=== PATIENT | female | born 1970 | race Caucasian/White ===

== ENCOUNTER 2017-01-26 00:43 | Emergency (ER) | payer BC, OTHER ==
[2017-01-26 00:53] VITALS: TEMP 97.6
--- NOTE | 2017-01-26 01:12 | ED ---
General Adult HPI - General Chief complaint: Extremity Injury, Lower Stated complaint: Lt leg pain Time Seen by Provider: 01/26/17 01:03 Source: patient, RN notes reviewed Mode of arrival: ambulatory Limitations: no limitations - History of Present Illness Initial comments: Patient is a 47-year-old female presents to the emergency room for evaluation of left calf pain. Patient states the pain began today. Patient states she has a history of multiple PE's about 3 years ago. Patient states she is on Xarelto for about a year. Patient states that she does sit a lot during the day. Patient denies any recent long distant traveling in a car or plane. Patient states she's having pain in her left calf. Patient states this worried her and thought it should be further evaluated. Patient denies any recent trauma her injury to her left leg. Patient denies numbness or tingling in her toes. Patient denies chest pain or shortness of breath. Patient denies headache or dizziness. Patient denies fevers or chills. - Related Data Allergies Allergy/AdvReac Type Severity Reaction Status Date / Time codeine Allergy Confusion Verified 01/26/17 00:54 levofloxacin [From Levaquin] Allergy Confusion Verified 01/26/17 00:54 Penicillins Allergy Confusion Verified 01/26/17 00:54 Sulfa (Sulfonamide Allergy Confusion Verified 01/26/17 00:54 Antibiotics) Review of Systems ROS Statement: Those systems with pertinent positive or pertinent negative responses have been documented in the HPI. ROS Other: All systems not noted in ROS Statement are negative. Past Medical History Past Medical History: Deep Vein Thrombosis (DVT), Pulmonary Embolus (PE) History of Any Multi-Drug Resistant Organisms: None Reported Past Surgical History: No Surgical Hx Reported Past Psychological History: Depression Smoking Status: Current every day smoker Past Alcohol Use History: Occasional Past Drug Use History: None Reported General Exam - General Exam Comments Initial Comments: Sitting in exam room, no acute distress. Limitations: no limitations General appearance: alert, in no apparent distress Head exam: Present: atraumatic, normocephalic, normal inspection Eye exam: Present: normal appearance ENT exam: Present: normal exam Neck exam: Present: normal inspection Respiratory exam: Present: normal lung sounds bilaterally. Absent: respiratory distress Cardiovascular Exam: Present: regular rate, normal rhythm, normal heart sounds Extremities exam: Present: normal inspection Left Lower Leg exam: Present: normal inspection, full ROM, tenderness (Palpating over the proximal posterior lower leg). Absent: swelling Ankle exam: Present: normal inspection, full ROM. Absent: tenderness Foot/Toe exam: Present: normal inspection, full ROM. Absent: tenderness Neurovascular tendon exam: Present: no vascular compromise. Absent: pulse deficit (2+ dorsal pedal and posterior tibial pulses), abnormal cap refill ( Capillary refill less than 2 seconds) Gait: observed and normal Back exam: Present: normal inspection Neurological exam: Present: alert, oriented X3, CN II-XII intact, normal gait Psychiatric exam: Present: normal affect, normal mood Skin exam: Present: warm, dry, intact, normal color. Absent: rash Course Vital Signs 01/26/17 01/26/17 00:51 02:35 Temperature 97.6 F Pulse Rate 108 H 98 Respiratory 20 16 Rate Blood Pressure 194/111 156/95 O2 Sat by Pulse 100 98 Oximetry Medical Decision Making - Medical Decision Making Patient is a 47-year-old female presents emergency room for evaluation of left lower leg pain. Venous Doppler ultrasound shows no signs of DVTs. Advised patient to follow-up with primary care provider in 24-48 hours for reevaluation. Patient states she understands everything that was discussed with her. Return parameters discussed. Case discussed with Dr. Hyunh. - Radiology Data Radiology results: report reviewed, image reviewed Disposition Clinical Impression: Left leg pain Disposition: HOME SELF-CARE Condition: Good Instructions: Leg Pain (ED) Additional Instructions: Take Tylenol or Motrin as needed for pain. Please follow up with primary care provider in 1-2 days for reevaluation. If any new symptom arises or symptoms worsen, return to ER as soon as possible. Referrals: Damian Flores MD [Primary Care Provider] - 1-2 days Time of Disposition: 02:29
--- NOTE | 2017-01-26 02:08 | US ---
EXAM: US Duplex Left Lower Extremity Veins CLINICAL HISTORY: Reason: Left leg pain. History of DVT 3-4 years ago reportedly. TECHNIQUE: Real-time ultrasound scan of the veins of the left lower extremity with color Doppler flow, spectral waveform analysis and compression. COMPARISON: None available FINDINGS: Normal compressibility is demonstrated from the common femoral vein to the proximal left calf veins. There is normal response to augmentation. Normal spontaneous phasic flow is noted. IMPRESSION: No evidence of deep venous thrombosis in the left lower extremity.
[2017-01-26 02:37] VITALS: BP 156/95; PULSE 98; RESP 16
== END 2017-01-26 02:43 | disposition home or self-care (01) ==
LOC: EC 00:43
DX: M79.662 Pain in left lower leg (principal); F17.200 Nicotine dependence, unspecified, uncomplicated; Z88.0 Allergy status to penicillin; Z88.2 Allergy status to sulfonamides; Z88.1 Allergy status to other antibiotic agents; Z88.5 Allergy status to narcotic agent
CPT/HCPCS: 99283

== ENCOUNTER → 2017-07-05 | Outpatient (CLI) | payer OTHER ==
--- NOTE | 2017-07-05 21:28 | MR ---
EXAMINATION TYPE: MR cervical spine wo con DATE OF EXAM: 07/05/2017 COMPARISON: NONE HISTORY: Neck pain, headaches, dizziness TECHNIQUE: Multiplanar, multisequence images of the cervical spine were acquired. C2-C3: No evidence for degenerative disc disease. No disc bulge/herniation or protrusion. No Canal stenosis. Foramina are patent bilaterally. C3-C4: No evidence for degenerative disc disease. No disc bulge/herniation or protrusion. No Canal stenosis. Foramina are patent bilaterally. C4-C5: No evidence for degenerative disc disease. No disc bulge/herniation or protrusion. No Canal stenosis. Foramina are patent bilaterally. C5-C6: Circumferential extension of endplate disc complex causes mild anterior mass effect on the the stiven sac. There is mild right-sided foraminal encroachment greater than left. No significant central s tenosis. C6-C7: Lateral extension endplate disc complex encroaches cause for foraminal encroachment. Mild ante rior mass effect on the thecal sac, no significant central stenosis. C7-T1: No evidence for degenerative disc disease. No disc bulge/herniation or protrusion. No Canal stenosis. Foramina are patent bilaterally. Cervical segments are intact. There is normal alignment. Cervical spinal cord is of normal signal. Craniovertebral junction relationships are within normal limits. Cervical vertebral bodies show pre served height. Bone marrow signal is maintained. IMPRESSION: Mild degenerative disc disease as described.
== END | disposition home or self-care (01) ==
LOC: RADMRIMAIN 19:41
PROVIDERS: ATTEND Internal Medicine
DX: M50.30 Other cervical disc degeneration, unspecified cervical region (principal); M54.5 Low back pain
CPT/HCPCS: 72141

== ENCOUNTER 2017-07-12 07:36 | Day surgery (SDC) | payer OTHER ==
[2017-07-11 12:24] VITALS: BMI 42.3
[~2017-07-12 07:36] MED LIST: LACTATED RINGERS 1,000 ML IV SCH
[2017-07-12 07:53] VITALS: RESP 20; TEMP 96.8
[2017-07-12] MEDS ORDERED: fentaNYL (PF) 50 MCG/ML 2 ML AMP ONE (08:27)
[2017-07-12] MEDS ORDERED: MIDAZOLAM 2 MG/2 ML VIAL ONE (08:27)
[2017-07-12] MEDS ORDERED: LIDOCAINE 1% INJ 10MG/ML (20 ML MDV) ONE (08:27)
[2017-07-12] MEDS ORDERED: PROPOFOL 10 MG/ML 20 ML VIAL IV ONE (08:27)
--- NOTE | 2017-07-12 09:11 | P.PCN ---
Date of Procedure: 07/12/17 Procedure(s) Performed: Procedure: Total colonoscopy. Preoperative diagnosis: Iron deficiency anemia. Postoperative diagnosis: Exam within normal limits. Preparation: HalfLytely prep. Sedation: Was provided by anesthesia. Brief clinical history: The patient is a 47-year-old female who is referred for this evaluation because of iron deficiency anemia. She has no overt bleeding. She has tendency for constipation. Colonoscopy performed in 2005 for constipation did not reveal any polyps. No family history of colon cancer. The patient has reflux symptoms and takes omeprazole. Her last upper endoscopy was around 2005. Procedure: With the patient on her left lateral decubitus position and after informed consent and adequate sedation, the perianal area was inspected and it did not show any fissures or fistulas. There were no masses felt on digital rectal examination. The Olympus CFQ 160L video colonoscope was then inserted in the rectum in the usual fashion and advanced to the cecum. The preparation was good. The mucosa appeared healthy. No polyps or tumors were seen or any obvious diverticular disease or other potential sources of bleeding. The patient tolerated the procedure well. Plan: The patient was reassured. She will follow-up with you as planned. Consideration can be given for further workup of the upper GI tract and small bowel if she continues to have iron deficiency anemia and has occult blood in her stools or other evidence of GI bleeding. Otherwise, it is likely that her anemia is related to her menstrual blood losses. For screening colonoscopy, I recommended repeat exam in 10 years.
[2017-07-12 09:29] VITALS: BP 138/94; PULSE 74
== END 2017-07-12 09:51 | disposition home or self-care (01) ==
LOC: ORWHC2ENDO 07:36
DX: D50.9 Iron deficiency anemia, unspecified (principal); K21.9 Gastro-esophageal reflux disease without esophagitis; Z86.718 Personal history of other venous thrombosis and embolism; I10 Essential (primary) hypertension; Z86.711 Personal history of pulmonary embolism; Z88.1 Allergy status to other antibiotic agents; Z88.0 Allergy status to penicillin; Z88.2 Allergy status to sulfonamides; Z88.8 Allergy status to other drugs, medicaments and biological substances
CPT/HCPCS: 81025; 45378; J2250; J2001; J3010; J2704

== ENCOUNTER → 2019-07-25 | Outpatient (CLI) | payer BC ==
[2019-07-25 07:35] LABS: Basophils # (A) 0.1 k/uL (0-0.2); Basophils % (A) 1 %; Eosinophils # (A) 0.3 k/uL (0-0.7); Eosinophils % (A) 3 %; HGB 11.4 gm/dL (11.4-16.0); Lymphocytes # (A) 3.2 k/uL (1.0-4.8); Lymphocytes % (A) 29 %; MCH 25.5 pg (25.0-35.0); MCHC 31.7 g/dL (31.0-37.0); MCV 80.4 fL (80.0-100.0); Mean Platelet Volume 5.7; Monocytes # (A) 0.9 k/uL (0-1.0); Monocytes % (A) 9 %; Neutrophils # (A) 6.2 k/uL (1.3-7.7); Neutrophils % (A) 57 %; Platelet Count 391 k/uL (150-450); RBC 4.48 m/uL (3.80-5.40); RDW 15.1 % (11.5-15.5); WBC 10.9 k/uL (3.8-10.6)
[2019-07-25 11:27] LABS: African American GFR (CKD) 69.2 (60.0-200.0); Albumin 4.2 g/dL (3.80-4.90); Albumin/Globulin Ratio 1.56 (1.60-3.17); Anion Gap 7.5 mmol/L (4.00-12.00); BUN/Creat Ratio 13.64 Ratio (12.00-20.00); Calcium 9.3 mg/dL (8.7-10.3); Carbon Dioxide 27.5 mmol/L (21.6-31.8); Chol/HDL Ratio 3.93; Globulin 2.7 g/dL (1.6-3.3); Potassium 4.4 mmol/L (3.5-5.5); Total Bilirubin 0.4 mg/dL (0.2-1.2); Total Protein 6.9 g/dL (6.2-8.2)
[2019-07-25 14:06] LABS: Hemoglobin A1C 6.5 % (4.0-6.0)
== END | disposition home or self-care (01) ==
LOC: LABWHC1 07:05
PROVIDERS: ATTEND Internal Medicine
DX: I10 Essential (primary) hypertension (principal); K21.9 Gastro-esophageal reflux disease without esophagitis; R53.83 Other fatigue; R73.09 Other abnormal glucose
CPT/HCPCS: 36415; 80053; 80061; 83036; 84443; 85025

== ENCOUNTER 2019-09-01 09:17 | Observation (INO) | payer BC ==
[2019-09-01] MEDS ORDERED: SODIUM CHLORIDE 0.9% 500 ML 500 ML IV STA (09:32)
[2019-09-01] MEDS ORDERED: ONDANSETRON 4 MG/2 ML VIAL IVP STA (09:32)
[2019-09-01 10:23] LABS: Basophils % (A) 0 %; Eosinophils # (A) 0.3 k/uL (0-0.7); Eosinophils % (A) 2 %; HCT 35.6 % (34.0-46.0); HGB 11.3 gm/dL (11.4-16.0); Hypochromasia Slight; Lymphocytes # (A) 2.3 k/uL (1.0-4.8); Lymphocytes % (A) 17 %; MCH 25.1 pg (25.0-35.0); MCHC 31.8 g/dL (31.0-37.0); MCV 78.8 fL (80.0-100.0); Mean Platelet Volume 6.8; Monocytes # (A) 0.8 k/uL (0-1.0); Monocytes % (A) 6 %; Neutrophils # (A) 9.6 k/uL (1.3-7.7); Neutrophils % (A) 73 %; Platelet Count 443 k/uL (150-450); RBC 4.51 m/uL (3.80-5.40); RDW 14.6 % (11.5-15.5); WBC 13.1 k/uL (3.8-10.6)
--- NOTE | 2019-09-01 10:32 | ED ---
General Adult HPI - General Chief complaint: Abdominal Pain Stated complaint: Abd Pain Time Seen by Provider: 09/01/19 09:32 Source: patient Mode of arrival: ambulatory Limitations: no limitations - History of Present Illness Initial comments: Dictation was produced using [employer] dictation software. please excuse any grammatical, word or spelling errors. Chief Complaint: 49-year-old female presents with abdominal pain. History of Present Illness: 79-year-old female she presents today with abdominal pain. Patient reports that her pain started last night. Rest vital 9 PM. She states that her symptoms improved however came back severely at around 5 AM this morning. She states pain is sharp and localized to her epigastric and periumbilical area. She states that the pain then moved down to her right lower quadrant area. Denies any vaginal discharge. Patient feels nauseated however no vomiting. No diarrhea. Patient denies any fevers. Patient states her pain is much improved since its initial onset. Patient denies any history of abdominal surgeries. The ROS documented in this emergency department record has been reviewed and confirmed by me. Those systems with pertinent positive or negative responses have been documented in the HPI. All other systems are other negative and/or noncontributory. PHYSICAL EXAM: General Impression: Alert and oriented x3, not in acute distress HEENT: Normocephalic atraumatic, extra-ocular movements intact, pupils equal and reactive to light bilaterally, mucous membranes moist. Cardiovascular: Heart regular rate and rhythm, S1&S2 audible, no murmurs, rubs or gallops Chest: Lungs clear to auscultation bilaterally, no rhonchi, no wheeze, no rales Abdomen: Bowel sounds present, abdomen soft, no rebound tenderness, pain at McBurney's point positive, negative Holley sign Musculoskeletal: Pulses present and equal in all extremities, no peripheral edema Motor: no focal deficits noted Neurological: CN II-XII grossly intact, no focal motor or sensory deficits noted Skin: Intact with no visualized rashes Psych: Normal affect and mood ED course: 49-year-old female presents with abdominal pain. Upon arrival shows heart rate of 102, rest of vital signs within acceptable limits. Physical examination shows some mild tenderness in the right lower quadrant. Laboratory evaluation obtained. Leukocytosis of 13.1, metabolic panel is negative. Urinalysis shows 19 red blood cells. Computed tomography scan of the abdomen and pelvis with contrast was obtained showing findings to suggest mild early appendicitis. He is also some nonobstructing right-sided nephrolithiasis. Given patient's symptomatology I believe and radiographic ridging her presentation consistent with early acute appendicitis versus nephrolithiasis. Discussed patient case with Dr. geronimo with plans for operating room at 4 PM. Patient given ceftriaxone and Flagyl. Patient reevaluated at bedside found to be stable medical condition. No signs of sepsis at this time. - Related Data Home Medications Medication Instructions Recorded Confirmed Cyclobenzaprine [Flexeril] 10 mg PO TID PRN 07/11/17 07/12/17 Desvenlafaxine Succinate [Pristiq] 50 mg PO DAILY 07/11/17 07/12/17 Dextroamphetamine/Amphetamine 30 mg PO DAILY PRN 07/11/17 07/12/17 [Adderall] Lisinopril [Zestril] 10 mg PO DAILY 07/11/17 07/12/17 Omeprazole 20 mg PO DAILY 07/11/17 07/12/17 traMADol HCL [Ultram] 50 mg PO Q6HR PRN 07/11/17 07/12/17 Allergies Allergy/AdvReac Type Severity Reaction Status Date / Time codeine AdvReac Confusion Verified 09/01/19 13:26 levofloxacin [From Levaquin] AdvReac Confusion Verified 09/01/19 13:26 Penicillins AdvReac Confusion Verified 09/01/19 13:26 Sulfa (Sulfonamide AdvReac Confusion Verified 09/01/19 13:26 Antibiotics) Review of Systems ROS Statement: Those systems with pertinent positive or pertinent negative responses have been documented in the HPI. ROS Other: All systems not noted in ROS Statement are negative. Past Medical History Past Medical History: Deep Vein Thrombosis (DVT), Pulmonary Embolus (PE) History of Any Multi-Drug Resistant Organisms: None Reported Past Surgical History: No Surgical Hx Reported Past Psychological History: Depression Smoking Status: Never smoker Past Alcohol Use History: Occasional General Exam Limitations: no limitations Course Vital Signs 09/01/19 09/01/19 09:23 11:03 Temperature 98.9 F Pulse Rate 102 H 68 Respiratory 18 18 Rate Blood Pressure 156/84 121/86 O2 Sat by Pulse 98 97 Oximetry Medical Decision Making - Lab Data Result diagrams: 09/01/19 09:27 09/01/19 09:27 Lab Results 09/01/19 09/01/19 09/01/19 Range/Units 09:27 09:27 09:27 WBC 13.1 H (3.8-10.6) k/uL RBC 4.51 (3.80-5.40) m/uL Hgb 11.3 L (11.4-16.0) gm/dL Hct 35.6 (34.0-46.0) % MCV 78.8 L (80.0-100.0) fL MCH 25.1 (25.0-35.0) pg MCHC 31.8 (31.0-37.0) g/dL RDW 14.6 (11.5-15.5) % Plt Count 443 (150-450) k/uL Neutrophils % 73 % Lymphocytes % 17 % Monocytes % 6 % Eosinophils % 2 % Basophils % 0 % Neutrophils # 9.6 H (1.3-7.7) k/uL Lymphocytes # 2.3 (1.0-4.8) k/uL Monocytes # 0.8 (0-1.0) k/uL Eosinophils # 0.3 (0-0.7) k/uL Basophils # 0.0 (0-0.2) k/uL Hypochromasia Slight Sodium 139 (137-145) mmol/L Potassium 3.7 (3.5-5.1) mmol/L Chloride 104 (98-107) mmol/L Carbon Dioxide 26 (22-30) mmol/L Anion Gap 9 mmol/L BUN 17 (7-17) mg/dL Creatinine 1.01 (0.52-1.04) mg/dL Est GFR (CKD-EPI)AfAm 77 (>60 ml/min/1.73 sqM) Est GFR (CKD-EPI)NonAf 67 (>60 ml/min/1.73 sqM) Glucose 107 H (74-99) mg/dL Calcium 9.4 (8.4-10.2) mg/dL Total Bilirubin 0.7 (0.2-1.3) mg/dL AST 19 (14-36) U/L ALT 20 (4-34) U/L Alkaline Phosphatase 67 (38-126) U/L Total Protein 7.5 (6.3-8.2) g/dL Albumin 4.0 (3.5-5.0) g/dL Lipase 141 (23-300) U/L Urine Color Yellow Urine Appearance Clear (Clear) Urine pH 7.0 (5.0-8.0) Ur Specific [place] >1.050 H (1.001-1.035) Urine Protein Trace H (Negative) Urine Glucose (UA) Negative (Negative) Urine Ketones Negative (Negative) Urine Blood Moderate H (Negative) Urine Nitrite Negative (Negative) Urine Bilirubin Negative (Negative) Urine Urobilinogen <2.0 (<2.0) mg/dL Ur Leukocyte Esterase Negative (Negative) Urine RBC 19 H (0-5) /hpf Urine WBC 1 (0-5) /hpf Ur Squamous Epith Cells 3 (0-4) /hpf Disposition Clinical Impression: Acute appendicitis Disposition: ADMITTED IP TO THIS HOSP Condition: Fair Referrals: Damian Flores MD [Primary Care Provider] - 1-2 days Decision Time: 13:31
[2019-09-01 10:35] LABS: Calcium 9.4 mg/dL (8.4-10.2); Potassium 3.7 mmol/L (3.5-5.1); Total Bilirubin 0.7 mg/dL (0.2-1.3); Total Protein 7.5 g/dL (6.3-8.2)
--- NOTE | 2019-09-01 12:49 | CT ---
EXAMINATION TYPE: CT abdomen pelvis w con DATE OF EXAM: 09/01/2019 REFERENCE: NONE HISTORY: rlq pain HISTORY: RLQ pain CT DLP: 2089.7 mGy Automated exposure control for dose reduction was used. TECHNIQUE: Helical acquisition through the abdomen and pelvis was obtained following the oral ingesti on of without Oral Contrast and following intravenous administration of 100 mL of Isovue 300. The abraham a was reformatted in axial, coronal and sagittal projections. FINDINGS: Visualized portions of the lungs are clear. There is no pleural or pericardial fluid. The heart is not enlarged. There is a small, sliding hiatal hernia. Within the abdomen, the liver, spleen and gallbladder are normal. Both adrenal glands are normal. There is a 4 mm nonobstructing calculus in the posterior middle pole calyx of the right kidney. The l eft kidney appears normal. The pancreas is unremarkable. There is no significant retroperitoneal, iliac or inguinal adenopathy. The bladder has a normal appearance. The uterus and ovaries appear normal. There is no significant diverticular change and there is no radiographic evidence of diverticulitis. The appendix is prominent measuring 8 cm. There is minimal inflammatory change adjacent to it. Small bowel loops are of normal caliber. There is no free fluid and no free air. There is some facet arthropathy in the lower lumbar spine. IMPRESSION: 1. FINDINGS CONSISTENT WITH MILD, EARLY APPENDICITIS. 2. NONOBSTRUCTING RIGHT-SIDED NEPHROLITHIASIS. 3. SMALL, SLIDING HIATAL HERNIA. 4. DEGENERATIVE CHANGES WITHIN THE SPINE.
[2019-09-01] MEDS ORDERED: metroNIDAZOLE-NS PMX 500 MG in SALINE 1 100ML.BAG IVPB STA (13:06)
[2019-09-01 13:09] LABS: Appearance,Urine Clear (Clear); Bilirubin,Urine Negative (Negative); Blood,Urine Moderate (Negative); Color,Urine Yellow; Glucose,Urine (UA) Negative (Negative); Ketones,Urine Negative (Negative); Leukocyte Esterase,Urine Negative (Negative); Nitrite,Urine Negative (Negative); Protein,Urine Trace (Negative); RBC,Urine 19 /hpf (0-5); Squamous Epithelial Cell,Urine 3 /hpf (0-4); Urobilinogen,Urine <2.0 mg/dL (<2.0); WBC,Urine 1 /hpf (0-5)
[2019-09-01 13:16] LABS: Specific Gravity,Urine >1.050 (1.001-1.035)
[2019-09-01] MEDS ORDERED: ACETAMINOPHEN TAB 325 MG TAB PO PRN (13:26)
[2019-09-01] MEDS ORDERED: ONDANSETRON 4 MG/2 ML VIAL IVP PRN (13:26)
[2019-09-01] MEDS ORDERED: MORPHINE SULFATE 4 MG/ML SYRINGE IV PRN (13:26)
[2019-09-01] MEDS ORDERED: NALOXONE 0.4 MG/ML 1 ML VIAL IV PRN (13:26)
[2019-09-01] MEDS ORDERED: PROPOFOL 10 MG/ML 20 ML VIAL IV ONE (16:15)
[2019-09-01] MEDS ORDERED: fentaNYL (PF) 50 MCG/ML 2 ML AMP ONE (16:15)
[2019-09-01] MEDS ORDERED: GLYCOPYRROLATE 0.2 MG/ML 2 ML VIAL ONE (16:15)
[2019-09-01] MEDS ORDERED: LIDOCAINE 1% INJ 10MG/ML (20 ML MDV) ONE (16:15)
[2019-09-01] MEDS ORDERED: ENOXAPARIN 40 MG/0.4 ML SYRINGE SQ ONE (16:15)
[2019-09-01] MEDS ORDERED: DEXAMETHASONE SOD PHOS (MDV) 100 MG/10 ML VIAL ONE (16:15)
[2019-09-01] MEDS ORDERED: NEOSTIGMINE 1 MG/ML 10 ML VIAL ONE (16:15)
[2019-09-01] MEDS ORDERED: SUCCINYLCHOLINE CHLORIDE 100 MG/5 ML SYR IV ONE (16:15)
[2019-09-01] MEDS ORDERED: ONDANSETRON 4 MG/2 ML VIAL ONE (16:15)
[2019-09-01] MEDS ORDERED: MIDAZOLAM 2 MG/2 ML VIAL ONE (16:15)
[2019-09-01] MEDS ORDERED: ROCURONIUM BROMIDE 10 MG/ML 10 ML VIAL IV ONE (16:15)
--- NOTE | 2019-09-01 16:15 | P.GSHP ---
History of Present Illness H&P Date: 09/01/19 Chief Complaint: Acute appendicitis 49-year-old female comes in the hospital with complaints of pain that began yesterday evening. Pain was initially more in the upper midabdomen but started to radiate down to the right lower quadrant. Some nausea but no vomiting. No fevers. White blood cell count slightly elevated. Computed tomography scan ordered which revealed mild inflammatory changes and thickening the appendix suspicious for early acute appendicitis. - Review of Systems Comment: The patient denies any acute changes in vision or hearing, no dysphagia or odynophagia, no chest pain or shortness of breath, no dysuria or hematuria, no headache, no runny nose, no rectal bleeding or melena, no unexplained weight loss Past Medical History Past Medical History: Deep Vein Thrombosis (DVT), Pulmonary Embolus (PE) History of Any Multi-Drug Resistant Organisms: None Reported Past Surgical History: No Surgical Hx Reported Past Psychological History: Depression Smoking Status: Never smoker Past Alcohol Use History: Occasional Medications and Allergies Home Medications Medication Instructions Recorded Confirmed Type Dextroamphetamine/Amphetamine 30 mg PO DAILY 07/11/17 09/01/19 History [Adderall] Omeprazole 20 mg PO DAILY 07/11/17 09/01/19 History traMADol HCL [Ultram] 50 mg PO Q6HR PRN 07/11/17 09/01/19 History ALPRAZolam [Xanax] 0.25 mg PO HS PRN 09/01/19 09/01/19 History Escitalopram [Lexapro] 10 mg PO DAILY 09/01/19 09/01/19 History Losartan/Hydrochlorothiazide 1 tab PO DAILY 09/01/19 09/01/19 History [Losartan-Hctz 100-25 mg Tab] SUMAtriptan SUCCINATE [Sumatriptan 100 mg PO DAILY PRN 09/01/19 09/01/19 History Succinate] Allergies Allergy/AdvReac Type Severity Reaction Status Date / Time codeine AdvReac Confusion Verified 09/01/19 13:26 levofloxacin [From Levaquin] AdvReac Confusion Verified 09/01/19 13:26 Penicillins AdvReac Confusion Verified 09/01/19 13:26 Sulfa (Sulfonamide AdvReac Confusion Verified 09/01/19 13:26 Antibiotics) Surgical - Exam Vital Signs Temp Pulse Resp BP Pulse Ox 98.9 F 102 H 18 156/84 98 09/01/19 09:23 09/01/19 09:23 09/01/19 09:23 09/01/19 09:23 09/01/19 09:23 Physical exam: General: Well-developed, well-nourished HEENT: Normocephalic, sclerae nonicteric Abdomen: Right lower quadrant tenderness, nondistended Extremities: No edema Neuro: Alert and oriented Results - Labs 09/01/19 09:27 09/01/19 09:27 Abnormal Lab Results - Last 24 Hours (Table) 09/01/19 09/01/19 09/01/19 Range/Units 09:27 09:27 09:27 WBC 13.1 H (3.8-10.6) k/uL Hgb 11.3 L (11.4-16.0) gm/dL MCV 78.8 L (80.0-100.0) fL Neutrophils # 9.6 H (1.3-7.7) k/uL Glucose 107 H (74-99) mg/dL Ur Specific [place] >1.050 H (1.001-1.035) Urine Protein Trace H (Negative) Urine Blood Moderate H (Negative) Urine RBC 19 H (0-5) /hpf Diabetes panel 09/01/19 Range/Units 09:27 Sodium 139 (137-145) mmol/L Potassium 3.7 (3.5-5.1) mmol/L Chloride 104 (98-107) mmol/L Carbon Dioxide 26 (22-30) mmol/L BUN 17 (7-17) mg/dL Creatinine 1.01 (0.52-1.04) mg/dL Glucose 107 H (74-99) mg/dL Calcium 9.4 (8.4-10.2) mg/dL AST 19 (14-36) U/L ALT 20 (4-34) U/L Alkaline Phosphatase 67 (38-126) U/L Total Protein 7.5 (6.3-8.2) g/dL Albumin 4.0 (3.5-5.0) g/dL Calcium panel 09/01/19 Range/Units 09:27 Calcium 9.4 (8.4-10.2) mg/dL Albumin 4.0 (3.5-5.0) g/dL Pituitary panel 09/01/19 Range/Units 09:27 Sodium 139 (137-145) mmol/L Potassium 3.7 (3.5-5.1) mmol/L Chloride 104 (98-107) mmol/L Carbon Dioxide 26 (22-30) mmol/L BUN 17 (7-17) mg/dL Creatinine 1.01 (0.52-1.04) mg/dL Glucose 107 H (74-99) mg/dL Calcium 9.4 (8.4-10.2) mg/dL Adrenal panel 09/01/19 Range/Units 09:27 Sodium 139 (137-145) mmol/L Potassium 3.7 (3.5-5.1) mmol/L Chloride 104 (98-107) mmol/L Carbon Dioxide 26 (22-30) mmol/L BUN 17 (7-17) mg/dL Creatinine 1.01 (0.52-1.04) mg/dL Glucose 107 H (74-99) mg/dL Calcium 9.4 (8.4-10.2) mg/dL Total Bilirubin 0.7 (0.2-1.3) mg/dL AST 19 (14-36) U/L ALT 20 (4-34) U/L Alkaline Phosphatase 67 (38-126) U/L Total Protein 7.5 (6.3-8.2) g/dL Albumin 4.0 (3.5-5.0) g/dL Assessment and Plan (1) Acute appendicitis Narrative/Plan: Will proceed with laparoscopic, possible open appendectomy at this time. Risks of bleeding, infection, leak, abscess, bladder and bowel injury, conversion to an open procedure, hernia were discussed. She understands wished to proceed Current Visit: Yes Status: Acute Code(s): K35.80 - UNSPECIFIED ACUTE APPENDI CITIS SNOMED Code(s): 21600179
[2019-09-01] MEDS ORDERED: IV FLUID CONTINUATION 500 ML IV ONE ×2 (16:18)
[2019-09-01] MEDS ORDERED: BUPIVACAINE (PF) 0.25% 30 ML VIAL SQ ONE ×2 (16:35→17:06)
[2019-09-01] MEDS ORDERED: HYDROmorphone 1 MG/ML 1 ML SYRINGE IVP PRN (16:57)
[2019-09-01] MEDS ORDERED: traMADol 50 MG TAB PO PRN ×2 (16:59→18:38)
--- NOTE | 2019-09-01 17:01 | P.OP ---
Date of Procedure: 09/01/19 Procedure(s) Performed: PREOPERATIVE DIAGNOSIS: Acute appendicitis POSTOPERATIVE DIAGNOSIS: Same PROCEDURE: Laparoscopic appendectomy SURGEON: Trevon EBL: 5 mL ANESTHESIA: General COMPLICATIONS: None OPERATIVE PROCEDURE: The patient was brought and placed on the operating table in the supine position. The patient was placed under general anesthesia. The abdomen was prepped and draped in the usual sterile fashion. A small vertical infraumbilical incision was made. The fascia was retracted anteriorly with Charlie forceps. The Veress needle was advanced into the peritoneal cavity. The saline drop test was normal. Insufflation took place to 15 mmHg. A 5 mm trocar was then placed. An additional 5 mm suprapubic trocar was placed under direct visualization as well as a 12 mm left lower quadrant trocar under direct visualization. The appendix was inspected. It was acutely inflamed. The mesoappendix was dissected. The base of the appendix was divided using a linear 45 mm intestinal stapler. The mesentery itself was divided using the LigaSure device. The area was then irrigated. No further purulence or bleeding was seen. The appendix was brought out of the peritoneal cavity through the left lower quadrant trocar site with a Endo Catch bag. The fascia at the 12 mm site was closed using a Garcia Ayla 0 Vicryl stitch. The skin at all 3 sites was closed using 4-0 Monocryl sutures. Skin glue was then applied. DISPOSITION: Stable to recovery room
[2019-09-01] MEDS ORDERED: diphenhydrAMINE 50 MG/ML 1 ML VIAL IVP ONE (17:21)
[2019-09-01] MEDS ORDERED: HYDROmorphone 0.5 MG/0.5 ML SYRINGE IVP ONE ×2 (17:28→17:48)
[2019-09-01] MEDS ORDERED: LACTATED RINGERS 1,000 ML IV ONE (17:50)
[2019-09-01] MEDS ORDERED: ALPRAZolam 0.25 MG TAB PO PRN (18:38)
[2019-09-01] MEDS ORDERED: SUMAtriptan SUCCINATE 50 MG TAB PO PRN (18:38)
[2019-09-01] MEDS: DOCUSATE 100 MG CAP PO SCH (20:36)
[2019-09-01] MEDS: FAMOTIDINE 20 MG TAB PO SCH (20:36)
[2019-09-01] MEDS: SODIUM CHLORIDE 0.9% 1,000 ML IV SCH ×2 (20:37→22:00)
[2019-09-01] MEDS: ENOXAPARIN 40 MG/0.4 ML SYRINGE SQ SCH (20:37)
[2019-09-02] MEDS: SODIUM CHLORIDE 0.9% 1,000 ML IV SCH (06:54)
[2019-09-02 07:11] VITALS: BP 112/65; PULSE 69; RESP 18; TEMP 97.6
[2019-09-02] MEDS ORDERED: PANTOPRAZOLE 40 MG TABLET PO SCH (07:30)
[2019-09-02] MEDS: ENOXAPARIN 40 MG/0.4 ML SYRINGE SQ SCH (08:43)
[2019-09-02] MEDS: FAMOTIDINE 20 MG TAB PO SCH (08:44)
[2019-09-02] MEDS: DOCUSATE 100 MG CAP PO SCH (08:44)
[2019-09-02] MEDS ORDERED: NON FORMULARY DRUG (Dextroamphetamine/Amphetamine [Adderall] 30 MG) PO SCH (09:00)
[2019-09-02] MEDS ORDERED: LOSARTAN-HCTZ 50-12.5 MG 1 EACH TAB PO SCH (09:00)
[2019-09-02] MEDS ORDERED: ESCITALOPRAM 10 MG TAB PO SCH (09:00)
--- NOTE | 2019-09-02 12:37 | P.DS ---
Providers Date of admission: 09/01/19 13:26 Expected date of discharge: 09/02/19 Attending physician: Abhijeet Lester Consults: 09/01/19 16:57 Consult Physician Routine Consulting Provider: Damian Flores Consult Reason/Comments: Medical management Do you want consulting provider notified?: Yes Primary care physician: Damian Flores - Discharge Diagnosis(es) (1) Acute appendicitis patient admitted yesterday through the emergency department. Patient diagnosed with acute appendicitis. Doing well at this time. Tolerating diet. Would like to go home today. We'll discharge. Patient already has Ultram at home. Follow-up one week. Current Visit: Yes Status: Acute Patient Condition at Discharge: Fair Plan - Discharge Summary New Discharge Prescriptions: No Action traMADol HCL [Ultram] 50 mg PO Q6HR PRN PRN Reason: Pain Dextroamphetamine/Amphetamine [Adderall] 30 mg PO DAILY Omeprazole 20 mg PO DAILY Losartan/Hydrochlorothiazide [Losartan-Hctz 100-25 mg Tab] 1 tab PO DAILY Escitalopram [Lexapro] 10 mg PO DAILY ALPRAZolam [Xanax] 0.25 mg PO HS PRN PRN Reason: Anxiety SUMAtriptan SUCCINATE [Sumatriptan Succinate] 100 mg PO DAILY PRN PRN Reason: Migraine Headache Discharge Medication List Dextroamphetamine/Amphetamine [Adderall] 30 mg PO DAILY 07/11/17 [History] Omeprazole 20 mg PO DAILY 07/11/17 [History] traMADol HCL [Ultram] 50 mg PO Q6HR PRN 07/11/17 [History] ALPRAZolam [Xanax] 0.25 mg PO HS PRN 09/01/19 [History] Escitalopram [Lexapro] 10 mg PO DAILY 09/01/19 [History] Losartan/Hydrochlorothiazide [Losartan-Hctz 100-25 mg Tab] 1 tab PO DAILY 09/01/19 [History] SUMAtriptan SUCCINATE [Sumatriptan Succinate] 100 mg PO DAILY PRN 09/01/19 [History] Follow up Appointment(s)/Referral(s): Damian Flores MD [Primary Care Provider] - 1-2 days
== END 2019-09-02 14:00 | disposition home or self-care (01) ==
LOC: EC 09:17 → 1SOBS 13:26
PROVIDERS: ADMIT Surgery; ATTEND Surgery
DX: K35.80 Unspecified acute appendicitis (principal); N20.0 Calculus of kidney; K44.9 Diaphragmatic hernia without obstruction or gangrene; M47.816 Spondylosis without myelopathy or radiculopathy, lumbar region; F32.9 Major depressive disorder, single episode, unspecified; I10 Essential (primary) hypertension; F17.210 Nicotine dependence, cigarettes, uncomplicated; E66.9 Obesity, unspecified; Z68.41 Body mass index [BMI] 40.0-44.9, adult; Z79.899 Other long term (current) drug therapy; Z79.891 Long term (current) use of opiate analgesic; Z88.5 Allergy status to narcotic agent; Z88.1 Allergy status to other antibiotic agents; Z88.0 Allergy status to penicillin; Z88.2 Allergy status to sulfonamides; Z86.718 Personal history of other venous thrombosis and embolism; Z86.711 Personal history of pulmonary embolism
CPT/HCPCS: 96360; 96361; 99285; 36415; 88304; 80053; 83690; 85025; 81001; 81025; 74177; 44970; G0378 ×2; J2250; J1200; J2710; J2405; J2001; J1650 ×2; J0696; J3010; J1170 ×2; J1100; J0330; J2704; Q9967

== ENCOUNTER → 2019-11-16 | Outpatient (CLI) | payer BC ==
--- NOTE | 2019-11-16 20:54 | MR ---
EXAMINATION TYPE: MR knee RT wo con DATE OF EXAM: 11/16/2019 COMPARISON: Outside right knee x-ray 2 weeks earlier. HISTORY: Rt knee pain per order. Inner knee pain for over 30 years per patient TECHNIQUE: Multiplanar, multisequence images of the knee is performed without IV contrast. FINDINGS: Evaluation slightly suboptimal due to artifact related to body habitus. MEDIAL MENISCUS: Anterior and posterior horns are intact without tear. LATERAL MENISCUS: Anterior and posterior horns are intact without tear. CRUCIATE LIGAMENTS: The anterior and posterior cruciate ligaments are intact and unremarkable. COLLATERAL LIGAMENTS: The medial collateral ligament and lateral collateral ligament complex are inta ct and unremarkable. EXTENSOR MECHANISM: Visualized quadriceps and patellar tendons are intact. EFFUSION: No significant suprapatellar joint effusion. POPLITEAL CYST: No popliteal/huerta cyst. TRICOMPARTMENT SPACES: Mild to moderate tricompartment joint space loss. Mild spurring patellofemoral compartment. CARTILAGE: Chondromalacia patella with thinning of articular cartilage most prominent along the media l aspect patellar pole where there are some areas of full-thickness loss seen. BONE MARROW SIGNAL: Heterogeneous areas of increased T2 signal posterior medial tibial plateau for re ference sagittal image 17 at areas of cartilaginous thinning. OTHER: No additional significant abnormality is appreciated. IMPRESSION: 1. No meniscal or ligamentous tear is seen. 2. Mild to moderate tricompartment degenerative changes greatest patellofemoral compartment as detail ed above.
== END | disposition home or self-care (01) ==
LOC: RADMRIMAIN 19:26
PROVIDERS: ATTEND Orthopaedic Surgery
DX: M17.11 Unilateral primary osteoarthritis, right knee (principal)

== ENCOUNTER 2019-12-20 20:07 | Observation (INO) | payer BC ==
[2019-12-20] MEDS ORDERED: ASPIRIN 81 MG PO STA (20:23)
[2019-12-20] MEDS ORDERED: NITROGLYCERIN OINT 1 INCH/GM PACKET TOPICAL STA (20:24)
--- NOTE | 2019-12-20 20:38 | ED ---
URI HPI - General Chief Complaint: Upper Respiratory Infection Stated Complaint: cough Time Seen by Provider: 12/20/19 20:16 Source: patient Mode of arrival: ambulatory Limitations: no limitations - History of Present Illness Initial Comments: 49yo female with history of HTN, DVT/PE, everyday smoker, presenting today for cc of cough, fever, chest pain, shortness of breath. Patient states she has had a cough for almost 2 weeks, she states the cough has been somewhat better since she recently finished a course of oral antibiotics, and has a prescription for a ventolin inhaler. Patient states she feels like she cant catch her breath and has had a squeezing sensation in the center of the chest for the past 17 hours, since 3AM. Patient states the symptoms worsen when she does physical activity. She has history of DVT and subsequent PE that was thought to be from her driving long hours daily, being a smoker and on OCPs. Patient states she was on an ticoagulation therapy for a year, had genetic testing and was then discontinued. Patient is off hormone use, but continues to smoke. Patient has history of COPD and sees Dr. Astorga, she states she called his office today and they were concerned, instructing patient to come to ER for evaluation. Patient does admit to running temperatures of 99.2F, she denies vomiting, diarrhea, abdominal pain, headache, neck stiffness. Patient denies any back pain, hemoptysis. Patient upon arrival has obvious dry cough, appears to be slightly SOB. HR elevated, BP elevated, patient has not taken nightly meds. CHest pressure is still present. - Related Data Home Medications Medication Instructions Recorded Confirmed Omeprazole 20 mg PO HS 07/11/17 12/20/19 Losartan/Hydrochlorothiazide 1 tab PO HS 09/01/19 12/20/19 [Losartan-Hctz 100-25 mg Tab] SUMAtriptan SUCCINATE [Sumatriptan 100 mg PO DAILY PRN 09/01/19 12/20/19 Succinate] Albuterol Sulfate [Ventolin HFA] 2 puff INHALATION Q4H PRN 12/20/19 12/20/19 Escitalopram Oxalate [Lexapro] 20 mg PO DAILY 12/20/19 12/20/19 Allergies Allergy/AdvReac Type Severity Reaction Status Date / Time codeine AdvReac Confusion Verified 12/20/19 21:11 levofloxacin [From Levaquin] AdvReac Confusion Verified 12/20/19 21:11 Penicillins AdvReac Confusion Verified 12/20/19 21:11 Sulfa (Sulfonamide AdvReac Confusion Verified 12/20/19 21:11 Antibiotics) Review of Systems ROS Statement: Those systems with pertinent positive or pertinent negative responses have been documented in the HPI. ROS Other: All systems not noted in ROS Statement are negative. Past Medical History Past Medical History: Deep Vein Thrombosis (DVT), Hypertension, Pulmonary Embolus (PE) Additional Past Medical History / Comment(s): currently not on any blood thi nners History of Any Multi-Drug Resistant Organisms: None Reported Past Surgical History: Appendectomy Additional Past Surgical History / Comment(s): lithotripsy Past Anesthesia/Blood Transfusion Reactions: Previous Problems w/ Anesthesia Additional Past Anesthesia/Blood Transfusion Reaction / Comment(s): patient states she had a hard time waking up Past Psychological History: Depression Smoking Status: Current every day smoker Past Alcohol Use History: Occasional Past Drug Use History: None Reported - Past Family History Mother Family Medical History: Myocardial Infarction ([place]) Father Family Medical History: Cancer Additional Family Medical History / Comment(s): from liver cancer General Exam - General Exam Comments Initial Comments: General: The patient is awake and alert, in no distress Eye: +3 mm pupils are equal, round and reactive to light, extra-ocular movements are intact. No nystagmus. There is normal conjunctiva bilaterally. No signs of icterus. No photophobia Ears, nose, mouth and throat: There are moist mucous membranes and no oral lesions. Oropharynx was not erythematous there is no tonsillar enlargement exudates or lesions. Uvula midline. No anterior cervical lymphadenopathy. Neck: The neck is supple, there is no tenderness or JVD. No nuchal rigidity Cardiovascular: There is a regular rate and rhythm. No murmur, rub or gallop is appreciated. Respiratory: Lungs sounds diminished equally in all agosto, respirations are mildly-labored, breath sounds are equal. No wheezes, stridor, rales. Mild rhonchi. No retractions or abdominal breathing. Gastrointestinal: Soft, non-distended, non-tender abdomen without masses or organomegaly noted. There is no rebound or guarding present. Bowel sounds are unremarkable. Musculoskeletal: Normal ROM, no tenderness. Strength 5/5. Sensation intact. Radial pulses equal bilaterally 2+. Neurological: A&O x 3. CN II-XII intact grossly, There are no obvious motor or sensory deficits. Coordination appears grossly intact. Speech appears normal, no muffling. Skin: Skin is warm and dry and no rashes or lesions are noted. No extremity edema or calf pain/swelling. Psychiatric: Cooperative Limitations: no limitations Course Vital Signs 12/20/19 12/20/19 12/20/19 20:12 21:02 21:09 Temperature 97.7 F Pulse Rate 105 H 101 H Respiratory 1 L 20 20 Rate Blood Pressure 178/106 O2 Sat by Pulse 100 100 Oximetry 12/20/19 12/20/19 12/20/19 21:10 21:20 21:30 Temperature Pulse Rate 99 99 96 Respiratory 18 20 12 Rate Blood Pressure 148/97 148/97 148/97 O2 Sat by Pulse 100 100 100 Oximetry 12/20/19 12/20/19 21:40 21:50 Temperature 98.2 F Pulse Rate 93 93 Respiratory 21 19 Rate Blood Pressure 137/92 O2 Sat by Pulse 100 100 Oximetry Medical Decision Making - Medical Decision Making 49-year-old female presenting today for chief complaint of shortness of breath. Patient states she is also concerned mostly about the squeezing chest pain has been ongoing since 3 AM. Initial troponin negative. EKG no specific acute findings. She does have diminished lung sounds chest x-rays clear. D-dimer within normal limits. Patient has no peripheral signs of deep venous thrombosis. Patient Given IV steroids. Patient will be admitted for serial troponins, and monitoring of shortness of breath. Patient is agreeable to admission. Case discussed with attending Dr. Huynh who spoke with admitting providers. - Lab Data Result diagrams: 12/20/19 20:50 12/20/19 20:50 Lab Results 12/20/19 12/20/19 12/20/19 Range/Units 20:50 20:50 20:50 WBC 9.5 (3.8-10.6) k/uL RBC 4.84 (3.80-5.40) m/uL Hgb 11.9 (11.4-16.0) gm/dL Hct 38.8 (34.0-46.0) % MCV 80.2 (80.0-100.0) fL MCH 24.5 L (25.0-35.0) pg MCHC 30.6 L (31.0-37.0) g/dL RDW 14.9 (11.5-15.5) % Plt Count 460 H (150-450) k/uL Neutrophils % 60 % Lymphocytes % 29 % Monocytes % 6 % Eosinophils % 3 % Basophils % 0 % Neutrophils # 5.7 (1.3-7.7) k/uL Lymphocytes # 2.8 (1.0-4.8) k/uL Monocytes # 0.5 (0-1.0) k/uL Eosinophils # 0.3 (0-0.7) k/uL Basophils # 0.0 (0-0.2) k/uL Hypochromasia Slight PT 9.4 (9.0-12.0) sec INR 0.9 (<1.2) APTT 22.0 (22.0-30.0) sec D-Dimer 0.42 (<0.60) mg/L FEU Sodium (137-145) mmol/L Potassium (3.5-5.1) mmol/L Chloride (98-107) mmol/L Carbon Dioxide (22-30) mmol/L Anion Gap mmol/L BUN (7-17) mg/dL Creatinine (0.52-1.04) mg/dL Est GFR (CKD-EPI)AfAm (>60 ml/min/1.73 sqM) Est GFR (CKD-EPI)NonAf (>60 ml/min/1.73 sqM) Glucose (74-99) mg/dL Plasma Lactic Acid Sarthak (0.7-2.0) mmol/L Calcium (8.4-10.2) mg/dL Magnesium (1.6-2.3) mg/dL Total Bilirubin (0.2-1.3) mg/dL AST (14-36) U/L ALT (4-34) U/L Alkaline Phosphatase (38-126) U/L Troponin I (0.000-0.034) ng/mL NT-Pro-B Natriuret Pep 35 pg/mL Total Protein (6.3-8.2) g/dL Albumin (3.5-5.0) g/dL 12/20/19 12/20/19 12/20/19 Range/Units 20:50 20:50 20:50 WBC (3.8-10.6) k/uL RBC (3.80-5.40) m/uL Hgb (11.4-16.0) gm/dL Hct (34.0-46.0) % MCV (80.0-100.0) fL MCH (25.0-35.0) pg MCHC (31.0-37.0) g/dL RDW (11.5-15.5) % Plt Count (150-450) k/uL Neutrophils % % Lymphocytes % % Monocytes % % Eosinophils % % Basophils % % Neutrophils # (1.3-7.7) k/uL Lymphocytes # (1.0-4.8) k/uL Monocytes # (0-1.0) k/uL Eosinophils # (0-0.7) k/uL Basophils # (0-0.2) k/uL Hypochromasia PT (9.0-12.0) sec INR (<1.2) APTT (22.0-30.0) sec D-Dimer (<0.60) mg/L FEU Sodium 138 (137-145) mmol/L Potassium 3.8 (3.5-5.1) mmol/L Chloride 101 (98-107) mmol/L Carbon Dioxide 27 (22-30) mmol/L Anion Gap 10 mmol/L BUN 23 H (7-17) mg/dL Creatinine 0.94 (0.52-1.04) mg/dL Est GFR (CKD-EPI)AfAm 84 (>60 ml/min/1.73 sqM) Est GFR (CKD-EPI)NonAf 73 (>60 ml/min/1.73 sqM) Glucose 145 H (74-99) mg/dL Plasma Lactic Acid Sarthak 1.6 (0.7-2.0) mmol/L Calcium 9.3 (8.4-10.2) mg/dL Magnesium 1.9 (1.6-2.3) mg/dL Total Bilirubin 0.2 (0.2-1.3) mg/dL AST 22 (14-36) U/L ALT 25 (4-34) U/L Alkaline Phosphatase 70 (38-126) U/L Troponin I <0.012 (0.000-0.034) ng/mL NT-Pro-B Natriuret Pep pg/mL Total Protein 7.8 (6.3-8.2) g/dL Albumin 4.2 (3.5-5.0) g/dL - EKG Data EKG Comments: Ventricular rate on her 9 beats minute, AL interval 128 ms, QRS quaker 84 ms, QT/QTC 338/455 ms. This is sinus tachycardia no significant ST elevation or depression appreciated. Disposition Clinical Impression: Chest pressure, SOB (shortness of breath), History of cough, History of COPD Disposition: ADMITTED IP TO THIS HOSP Condition: Stable Is patient prescribed a controlled substance at d/c from ED?: No Time of Disposition: 22:07 Decision to Admit Reason: Admit from EC Decision Date: 12/20/19 Decision Time: 22:07
[2019-12-20] MEDS ORDERED: SODIUM CHLORIDE 0.9% 1,000 ML IV ONE (20:42)
[2019-12-20 21:22] LABS: Basophils % (A) 0 %; Eosinophils # (A) 0.3 k/uL (0-0.7); Eosinophils % (A) 3 %; HCT 38.8 % (34.0-46.0); HGB 11.9 gm/dL (11.4-16.0); Hypochromasia Slight; Lymphocytes # (A) 2.8 k/uL (1.0-4.8); Lymphocytes % (A) 29 %; MCH 24.5 pg (25.0-35.0); MCHC 30.6 g/dL (31.0-37.0); MCV 80.2 fL (80.0-100.0); Mean Platelet Volume 6.7; Monocytes # (A) 0.5 k/uL (0-1.0); Monocytes % (A) 6 %; Neutrophils # (A) 5.7 k/uL (1.3-7.7); Neutrophils % (A) 60 %; Platelet Count 460 k/uL (150-450); RBC 4.84 m/uL (3.80-5.40); RDW 14.9 % (11.5-15.5); WBC 9.5 k/uL (3.8-10.6)
[2019-12-20 21:26] LABS: Albumin 4.2 g/dL (3.5-5.0); Calcium 9.3 mg/dL (8.4-10.2); Magnesium 1.9 mg/dL (1.6-2.3); Potassium 3.8 mmol/L (3.5-5.1); Total Bilirubin 0.2 mg/dL (0.2-1.3); Total Protein 7.8 g/dL (6.3-8.2)
[2019-12-20 21:27] LABS: D-Dimer 0.42 mg/L FEU (<0.60); INR 0.9 (<1.2); Prothrombin Time 9.4 sec (9.0-12.0)
--- NOTE | 2019-12-20 21:33 | XR ---
EXAMINATION TYPE: XR chest 1V portable DATE OF EXAM: 12/20/2019 COMPARISON: 08/23/2013 HISTORY: Chest pain TECHNIQUE: FINDINGS: Heart and mediastinum are normal. Lungs are clear. Diaphragm is normal. Bony thorax is norm al. There are chest leads. IMPRESSION: Normal chest. No change.
[2019-12-20] MEDS ORDERED: methylPREDNISolone SOD SUCCI 125 MG/2 ML VIAL IV STA (21:46)
[2019-12-20] MEDS ORDERED: NALOXONE 0.4 MG/ML 1 ML VIAL IV PRN (22:04)
[2019-12-20] MEDS ORDERED: IPRATROPIUM-ALBUTEROL 3 ML NEB INHALATION STA (22:34)
[2019-12-21] MEDS ORDERED: ALBUTEROL NEBULIZED 2.5 MG/3 ML INHALATION PRN (00:13)
[2019-12-21] MEDS: SODIUM CHLORIDE 0.9% 1,000 ML IV SCH (03:18)
[2019-12-21 04:11] LABS: Cholesterol 167 mg/dL (<200); HDL Cholesterol 53 mg/dL (40-60); LDL Cholesterol,Calculated 99 mg/dL (0-99); Triglycerides 75 mg/dL (<150)
[2019-12-21] MEDS: methylPREDNISolone SOD SUCCI 40 MG/ML 1 ML VIAL IV SCH ×3 (05:35→17:11)
[2019-12-21 06:47] LABS: Glucose,Whole Blood 212 mg/dL (75-99)
[2019-12-21] MEDS: INSULIN ASPART (NovoLOG) 100 UNIT/ML VIAL SQ SCH ×4 (06:52→20:49)
[2019-12-21] MEDS ORDERED: ESCITALOPRAM 20 MG TAB PO SCH (09:00)
[2019-12-21] MEDS ORDERED: SUMAtriptan SUCCINATE 50 MG TAB PO PRN (09:00)
--- NOTE | 2019-12-21 10:43 | P.CRDCN ---
History of Present Illness Consult date: 12/21/19 Requesting physician: Damian Flores Consult reason: chest pain Chief complaint: Chest pain History of present illness: This is a 49-year-old female with history of hypertension, nicotine d ependence, asthma, history of pulmonary embolism in the past, she was taken off Xarelto approximately one year ago. Patient presented to the hospital on this admission with symptoms of squeezing type of chest pain in the left chest area, she described it as a tightness, she states that the symptoms reminded her somewhat of what she had at that time she had her pulmonary embolism. So states that for the past 2 days she's been experiencing a dry hacking cough, nonproductive. Denies any fever or chills at home. Troponins have been negative 2, her d-dimer 0.42, electrolytes within normal limits. EKG shows a sinus tachycardia with nonspecific ST-T wave changes. Chest x-ray was normal. Blood pressure on arrival to the hospital 178/106, heart rate 90s to 108, 100% on room air. Blood pressure this morning 135/75 with a heart rate in the 80s, 98% on 2 L of oxygen. At the time of my examination the patient is currently chest pain-free. Past Medical History Past Medical History: Deep Vein Thrombosis (DVT), Hypertension, Pulmonary Embolus (PE) Additional Past Medical History / Comment(s): currently not on any blood thi nners History of Any Multi-Drug Resistant Organisms: None Reported Past Surgical History: Appendectomy Additional Past Surgical History / Comment(s): lithotripsy Past Anesthesia/Blood Transfusion Reactions: Previous Problems w/ Anesthesia Additional Past Anesthesia/Blood Transfusion Reaction / Comment(s): patient states she had a hard time waking up Past Psychological History: Depression Smoking Status: Current every day smoker Past Alcohol Use History: Occasional Past Drug Use History: None Reported - Past Family History Mother Family Medical History: Myocardial Infarction ([place]) Father Family Medical History: Cancer Additional Family Medical History / Comment(s): from liver cancer Medications and Allergies Home Medications Medication Instructions Recorded Confirmed Type Omeprazole 20 mg PO HS 07/11/17 12/20/19 History Losartan/Hydrochlorothiazide 1 tab PO HS 09/01/19 12/20/19 History [Losartan-Hctz 100-25 mg Tab] SUMAtriptan SUCCINATE [Sumatriptan 100 mg PO DAILY PRN 09/01/19 12/20/19 History Succinate] Albuterol Sulfate [Ventolin HFA] 2 puff INHALATION Q4H PRN 12/20/19 12/20/19 History Escitalopram Oxalate [Lexapro] 20 mg PO DAILY 12/20/19 12/20/19 History Allergies Allergy/AdvReac Type Severity Reaction Status Date / Time codeine AdvReac Confusion Verified 12/20/19 21:11 levofloxacin [From Levaquin] AdvReac Confusion Verified 12/20/19 21:11 Penicillins AdvReac Confusion Verified 12/20/19 21:11 Sulfa (Sulfonamide AdvReac Confusion Verified 12/20/19 21:11 Antibiotics) Physical Exam Vitals: Vital Signs Temp Pulse Pulse Resp BP BP Pulse Ox 12/21/19 08:00 98.1 F 86 16 118/64 98 12/21/19 03:51 88 16 12/21/19 03:22 98.2 F 88 16 135/75 98 12/21/19 00:00 89 14 12/20/19 22:41 97.9 F 89 14 142/87 100 12/20/19 21:50 98.2 F 93 19 137/92 100 12/20/19 21:40 93 21 100 12/20/19 21:30 96 12 148/97 100 12/20/19 21:20 99 20 148/97 100 12/20/19 21:10 99 18 148/97 100 12/20/19 21:09 20 12/20/19 21:02 101 H 20 100 12/20/19 20:12 97.7 F 105 H 1 L 178/106 100 Intake and Output 12/20/19 12/21/19 12/21/19 22:59 06:59 14:59 Intake Total 160 Balance 160 Intake: Intake, IV Titration 160 Amount Sodium Chloride 0.9% 1, 160 000 ml @ 20 mls/hr IV . Q24H [facility] Rx#:[id number] Other: Voiding Method Toilet # Voids 2 Weight 127.006 kg 127.7 kg PHYSICAL EXAMINATION: GENERAL: 49-year-old female in no acute distress at the time of my ex amination HEENT: Head is atraumatic, normocephalic. Pupils equal, round. Sclera anicteric. Conjunctiva are clear. Mucous membranes of the mouth are moist. Neck is supple. There is no elevated jugular venous pressure. No carotid bruit is heard. HEART EXAMINATION: Heart S1, S2 normal. No murmur or gallop heard. CHEST EXAMINATION: Lungs are clear with mild expiratory wheezing heard ABDOMEN: Soft, nontender. Bowel sounds are heard. No organomegaly noted. EXTREMITIES: 2+ peripheral pulses with no evidence of peripheral edema and no calf tenderness noted. NEUROLOGIC patient is awake, alert and oriented 3 . . Results 12/20/19 20:50 12/20/19 20:50 Cardiac Enzymes 12/20/19 12/20/19 12/21/19 Range/Units 20:50 20:50 03:09 AST 22 (14-36) U/L Troponin I <0.012 <0.012 (0.000-0.034) ng/mL 12/21/19 Range/Units 08:30 AST (14-36) U/L Troponin I <0.012 (0.000-0.034) ng/mL Coagulation 12/20/19 Range/Units 20:50 PT 9.4 (9.0-12.0) sec APTT 22.0 (22.0-30.0) sec Lipids 12/21/19 Range/Units 03:09 Triglycerides 75 (<150) mg/dL Cholesterol 167 (<200) mg/dL HDL Cholesterol 53 (40-60) mg/dL CBC 12/20/19 Range/Units 20:50 WBC 9.5 (3.8-10.6) k/uL RBC 4.84 (3.80-5.40) m/uL Hgb 11.9 (11.4-16.0) gm/dL Hct 38.8 (34.0-46.0) % Plt Count 460 H (150-450) k/uL Comprehensive Metabolic Panel 12/20/19 Range/Units 20:50 Sodium 138 (137-145) mmol/L Potassium 3.8 (3.5-5.1) mmol/L Chloride 101 (98-107) mmol/L Carbon Dioxide 27 (22-30) mmol/L BUN 23 H (7-17) mg/dL Creatinine 0.94 (0.52-1.04) mg/dL Glucose 145 H (74-99) mg/dL Calcium 9.3 (8.4-10.2) mg/dL AST 22 (14-36) U/L ALT 25 (4-34) U/L Alkaline Phosphatase 70 (38-126) U/L Total Protein 7.8 (6.3-8.2) g/dL Albumin 4.2 (3.5-5.0) g/dL Current Medications Generic Name Dose Route Start Last Admin Trade Name Freq PRN Reason Stop Dose Admin Albuterol Sulfate 2.5 mg 12/21/19 00:13 Ventolin Nebulized INHALATION RT-Q4H PRN Shortness Of Breath Escitalopram Oxalate 20 mg 12/21/19 09:00 12/21/19 08:23 Lexapro PO 20 mg DAILY [facility] Administration HCTZ/Losartan Potassium 1 each 12/21/19 21:00 Hyzaar 50-12.5 PO HS [facility] Sodium Chloride 1,000 mls @ 20 mls/hr 12/20/19 22:15 12/21/19 03:18 Saline 0.9% IV 20 mls/hr .Q24H [facility] Administration Insulin Aspart 0 unit 12/21/19 07:30 12/21/19 06:52 Novolog SQ Not Given ACHS [facility] Protocol Losartan Potassium 50 mg 12/21/19 21:00 Cozaar PO HS [facility] Methylprednisolone Sodium Succinate 40 mg 12/21/19 06:00 12/21/19 05:35 Solu-Medrol IV 40 mg Q6HR [facility] Administration Naloxone HCl 0.2 mg 12/20/19 22:04 Narcan IV Q2M PRN Opioid Reversal Pantoprazole Sodium 40 mg 12/21/19 21:00 Protonix PO HS [facility] Sumatriptan Succinate 100 mg 12/21/19 09:00 Imitrex PO DAILY PRN Migraine Headache Intake and Output 12/20/19 12/21/19 12/21/19 22:59 06:59 14:59 Intake Total 160 Balance 160 Intake: Intake, IV Titration 160 Amount Sodium Chloride 0.9% 1, 160 000 ml @ 20 mls/hr IV . Q24H [facility] Rx#:[id number] Other: Voiding Method Toilet # Voids 2 Weight 127.006 kg 127.7 kg 12/20/19 20:50 12/20/19 20:50 EKG Interpretations (text) EKG shows a sinus tachycardia with nonspecific ST-T wave changes. Assessment and Plan Plan: Assessment and plan #1 chest pain, atypical features for acute coronary syndrome. Troponins negative 2. EKG shows a sinus tachycardia with nonspecific ST-T wave changes. #2 history of prior pulmonary embolism, patient was taken off the Xarelto approximately one year ago. #3 hypertension #4 asthma #5 nicotine dependence Plan We will obtain a third troponin as well as an echocardiogram with Doppler study. Consider scheduling the patient for a dobutamine echocardiographic study. Further recommendations to follow. DNP note has been reviewed, I agree with a documented findings and plan of care. Patient was seen and examined.
[2019-12-21] MEDS ORDERED: DOBUTamine DRIP for NUC MED 500 MG in DEXTROSE/WATER 1 250ML.BAG IV ONE (11:21)
[2019-12-21 11:38] LABS: Glucose,Whole Blood 173 mg/dL (75-99)
--- NOTE | 2019-12-21 13:03 | ECHOF ---
Referral Reason:chest pain MEASUREMENTS -------- HEIGHT: 170.2 cm WEIGHT: 127.5 kg BP: 118/64 RVIDd: 3.0 cm (< 3.3) IVSd: 1.0 cm (0.6 - 1.1) LVIDd: 3.3 cm (3.9 - 5.3) LVPWd: 1.0 cm (0.6 - 1.1) IVSs: 1.4 cm LVIDs: 2.2 cm LVPWs: 1.5 cm LA Diam: 2.9 cm (2.7 - 3.8) LAESV Index (A-L): 21.53 ml/m Ao Diam: 3.0 cm (2.0 - 3.7) AV Cusp: 1.8 cm (1.5 - 2.6) MV EXCURSION: 14.967 mm (> 18.000) MV EF SLOPE: 82 mm/s (70 - 150) EPSS: 0.3 cm MV E Nik: 1.07 m/s MV DecT: 226 ms MV A Nik: 1.20 m/s MV E/A Ratio: 0.89 RAP: 15.00 mmHg RVSP: 35.85 mmHg TAPSE: 23.08 mm FINDINGS -------- Sinus rhythm. This was a technically adequate study. The left ventricular size is normal. Left ventricular wall thickness is normal. Overall left vent ricular systolic function is normal with, an EF between 55 - 60 %. The right ventricle is normal in size. Normal LA size by volume 22+/-6 ml/m2. The right atrial size is normal. Interatrial and interventricular septum intact. The aortic valve is trileaflet and appears structurally normal. Trace amount of aortic regurgitatio n. The mitral valve is normal. There is trace mitral regurgitation. Mild tricuspid regurgitation present. There is mild pulmonary hypertension. The right ventricular systolic pressure, as measured by Doppler, is 35.85mmHg. The pulmonic valve was not well visualized. There is no pulmonic regurgitation present. The aortic root size is normal. The inferior vena cava is dilated with poor inspiratory collapse which is consistent with estimated r ight atrial pressure of 15 mmHg. There is no pericardial effusion. CONCLUSIONS -------- 1. Left ventricular wall thickness is normal. 2. Overall left ventricular systolic function is normal with, an EF between 55 - 60 %. 3. Normal LA size by volume 22+/-6 ml/m2. 4. The aortic valve is trileaflet and appears structurally normal. 5. Trace amount of aortic regurgitation. 6. There is trace mitral regurgitation. 7. Mild tricuspid regurgitation present. 8. There is mild pulmonary hypertension. 9. The pulmonic valve was not well visualized. 10. The aortic root size is normal. 11. The inferior vena cava is dilated with poor inspiratory collapse which is consistent with estimat ed right atrial pressure of 15 mmHg. 12. There is no pericardial effusion. INSURANCE COMMISSIONER: Kadi Barrios RDCS
--- NOTE | 2019-12-21 14:16 | P.HPIM ---
History of Present Illness H&P Date: 12/21/19 Chief Complaint: Chest pain cough and shortness of breath That Caitlyn Pardo is a 49-year-old female who presented to [facility] emergency room with a chief complaint of chest pain she describes a dull pain in the middle of her sternum like somebody has punched her that started on the day prior to admission. Patient stated that she has been sick for several weeks with sneezing coughing and shortness of breath she contacted telemedicine at [facility] and was given a course of steroids and cough syrup and an inhaler she felt better for a short while then she started having coughing and shortness of breath again. However when she started having chest pain she decided to come to emergency room. Past medical history significant for history of hypertension, history of migraine headache, history of depression, history of asthma and history of gastroesophageal reflux disease, she still smokes few cigarettes per day. Past Medical History Past Medical History: Deep Vein Thrombosis (DVT), Hypertension, Pulmonary Embol us (PE) Additional Past Medical History / Comment(s): currently not on any blood thinners History of Any Multi-Drug Resistant Organisms: None Reported Past Surgical History: Appendectomy Additional Past Surgical History / Comment(s): lithotripsy Past Anesthesia/Blood Transfusion Reactions: Previous Problems w/ Anesthesia Additional Past Anesthesia/Blood Transfusion Reaction / Comment(s): patient states she had a hard time waking up Past Psychological History: Depression Smoking Status: Current every day smoker Past Alcohol Use History: Occasional Past Drug Use History: None Reported - Past Family History Mother Family Medical History: Myocardial Infarction ([place]) Father Family Medical History: Cancer Additional Family Medical History / Comment(s): from liver cancer Medications and Allergies Home Medications Medication Instructions Recorded Confirmed Type Omeprazole 20 mg PO HS 07/11/17 12/20/19 History Losartan/Hydrochlorothiazide 1 tab PO HS 09/01/19 12/20/19 History [Losartan-Hctz 100-25 mg Tab] SUMAtriptan SUCCINATE [Sumatriptan 100 mg PO DAILY PRN 09/01/19 12/20/19 History Succinate] Albuterol Sulfate [Ventolin HFA] 2 puff INHALATION Q4H PRN 12/20/19 12/20/19 History Escitalopram Oxalate [Lexapro] 20 mg PO DAILY 12/20/19 12/20/19 History Allergies Allergy/AdvReac Type Severity Reaction Status Date / Time codeine AdvReac Confusion Verified 12/20/19 21:11 levofloxacin [From Levaquin] AdvReac Confusion Verified 12/20/19 21:11 Penicillins AdvReac Confusion Verified 12/20/19 21:11 Sulfa (Sulfonamide AdvReac Confusion Verified 12/20/19 21:11 Antibiotics) Physical Exam Vitals: Vital Signs Temp Pulse Pulse Resp BP BP Pulse Ox 12/21/19 11:22 97.7 F 86 16 159/94 95 12/21/19 08:00 98.1 F 86 16 118/64 98 12/21/19 03:51 88 16 12/21/19 03:22 98.2 F 88 16 135/75 98 12/21/19 00:00 89 14 12/20/19 22:41 97.9 F 89 14 142/87 100 12/20/19 21:50 98.2 F 93 19 137/92 100 12/20/19 21:40 93 21 100 12/20/19 21:30 96 12 148/97 100 12/20/19 21:20 99 20 148/97 100 12/20/19 21:10 99 18 148/97 100 12/20/19 21:09 20 12/20/19 21:02 101 H 20 100 12/20/19 20:12 97.7 F 105 H 1 L 178/106 100 Intake and Output 12/20/19 12/21/19 12/21/19 22:59 06:59 14:59 Intake Total 160 Balance 160 Intake: Intake, IV Titration 160 Amount Sodium Chloride 0.9% 1, 160 000 ml @ 20 mls/hr IV . Q24H [facility] Rx#:[id number] Other: Voiding Method Toilet # Voids 2 Weight 127.006 kg 127.7 kg 127.7 kg In general patient is alert and oriented 3 in no apparent distress HEENT head normocephalic and atraumatic Neck is supple no JVD no goiter no lymphadenopathy Chest exam reveals a few scattered crackles bilaterally no wheezing Cardiac exam reveals regular heart sounds no gallops no murmurs Abdomen is soft nontender no organomegaly with normal bowel sounds Extremity exam reveals no edema no cyanosis or clubbing Neurological examination reveals no gross focal deficit Results CBC & Chem 7: 12/20/19 20:50 12/20/19 20:50 Labs: Abnormal Lab Results - Last 24 Hours (Table) 12/20/19 12/20/19 12/21/19 Range/Units 20:50 20:50 06:46 MCH 24.5 L (25.0-35.0) pg MCHC 30.6 L (31.0-37.0) g/dL Plt Count 460 H (150-450) k/uL BUN 23 H (7-17) mg/dL Glucose 145 H (74-99) mg/dL POC Glucose (mg/dL) 212 H (75-99) mg/dL 12/21/19 Range/Units 11:36 MCH (25.0-35.0) pg MCHC (31.0-37.0) g/dL Plt Count (150-450) k/uL BUN (7-17) mg/dL Glucose (74-99) mg/dL POC Glucose (mg/dL) 173 H (75-99) mg/dL Thrombosis Risk Factor Assmnt - Choose All That Apply Any of the Below Risk Factors Present?: Yes Each Factor Represents 1 point: Age 41-60 years, Obesity (BMI >25) Each Risk Factor Represents 3 Points: History of DVT/PE Thrombosis Risk Factor Assessment Total Risk Factor Score: 5 Thrombosis Risk Factor Assessment Level: High Risk Assessment and Plan Plan: #1 episodes of chest pain, on the day prior to admission and on the day of admission, patient is admitted to telemetry floor cardiology consult was requested 3 sets of cardiac enzymes were ordered, EKG without any acute abnormal ity #2 upper respiratory infection with cough chest x-ray without any evidence of acute infiltrate patient was having shortness of breath and wheezing in the emergency room she was started on IV Solu-Medrol, she was continued on albuterol nebulizer #3 underlying history of hypertension #4 underlying history of depression #5 underlying history of gastroesophageal reflux disease At this time patient is admitted to telemetry floor cardiology consult requested stress test ordered will follow closely during this admission
--- NOTE | 2019-12-21 14:52 | ECHOS ---
STRESS ECHOCARDIOGRAM INDICATIONS: Chest pain. MEDICATIONS: Omeprazole, losartan, Sumatriptan Succinate, Ventolin, Lexapro. BASELINE HEART RATE: 88 BASELINE BLOOD PRESSURE: 135/66 MAXIMUM HEART RATE: 146 MAXIMUM BLOOD PRESSURE: 141/111 85% MPHR: 147 100% MPHR: 173 MAXIMUM STAGE REACHED: 4 TOTAL EXERCISE TIME: 10:58 CLINICAL INFORMATION: Baseline rhythm is sinus mechanism, rate of 88, normal axis, intervals, normal echocardiogram. Baseline blood pressure 135/66 mmHg. Patient received an infusion of dobutamine per protocol reaching peak rate 146 beats per minute which is equal to 84% maximum predicted heart rate. Peak blood pressure 141/111 mmHg. Electrocardiograph monitoring revealed no evidence of diagnostic ischemic ST deviation. FINDINGS: Baseline echocardiogram revealed normal wall motion. At peak infusion, there was normal wall motion and thickening with no evidence of hypokinesis or dyskinesis. CONCLUSION: 1. Normal echocardiograph response to dobutamine infusion. 2. Normal stress echocardiogram with no evidence of stress-induced ischemia. MMODL / IJN: [id number] /
[2019-12-21] MEDS: AZITHROMYCIN 500 MG in SODIUM CHLORIDE 0.9% 250 ML IVPB SCH (15:20)
[2019-12-21 17:00] LABS: Glucose,Whole Blood 210 mg/dL (75-99)
[2019-12-21] MEDS ORDERED: NITROGLYCERIN SL TABS 0.4 MG TAB SUBLINGUAL ONE (20:07)
[2019-12-21] MEDS ORDERED: ACETAMINOPHEN TAB 325 MG TAB PO PRN (20:09)
[2019-12-21 20:35] LABS: Glucose,Whole Blood 271 mg/dL (75-99)
[2019-12-21] MEDS ORDERED: LOSARTAN-HCTZ 50-12.5 MG 1 EACH TAB PO SCH (21:00)
[2019-12-21] MEDS ORDERED: LOSARTAN 50 MG TAB PO SCH (21:00)
[2019-12-22] MEDS: methylPREDNISolone SOD SUCCI 40 MG/ML 1 ML VIAL IV SCH ×3 (00:09→12:41)
[2019-12-22] MEDS: SODIUM CHLORIDE 0.9% 1,000 ML IV SCH (05:57)
[2019-12-22 06:16] LABS: Glucose,Whole Blood 240 mg/dL (75-99)
[2019-12-22] MEDS: INSULIN ASPART (NovoLOG) 100 UNIT/ML VIAL SQ SCH ×2 (06:22→12:41)
[2019-12-22] MEDS ORDERED: PANTOPRAZOLE 40 MG TABLET PO SCH (09:00)
[2019-12-22] MEDS: AZITHROMYCIN 500 MG in SODIUM CHLORIDE 0.9% 250 ML IVPB SCH (09:14)
[2019-12-22 11:23] VITALS: BP 119/66; PULSE 80; RESP 18; TEMP 97.9
[2019-12-22 11:52] LABS: Glucose,Whole Blood 220 mg/dL (75-99)
--- NOTE | 2019-12-22 12:35 | P.PN ---
Subjective This is a pleasant 49-year-old female past medical history significant for hypertension, nicotine dependence, asthma and remote history of pulmonary embolism. She underwent dobutamine stress echocardiogram yesterday that was negative for stress-induced ischemia. She is seen and examined resting comfortably in no acute distress. She has had no further symptoms of chest discomfort. She is concerned about her intermittent palpitations. Blood pressure 119/66 heart rate 88 afebrile maintaining oxygen saturation on room air. Echocardiogram obtained reveals preserved LV systolic function with ejection fraction 55-60% with mild pulmonary hypertension. GENERAL: Well-appearing, well-nourished and in no acute distress. NECK: Supple without JVD or thyromegaly. LUNGS: Breath sounds clear to auscultation bilaterally. Respiration equal and unlabored. No wheezes, rales or rhonchi. HEART: Regular rate and rhythm without murmurs, rubs or gallops. S1 and S2 heard. EXTREMITIES: Normal range of motion, no edema. No clubbing or cyanosis. Peripheral pulses intact. ASSESSMENT Chest pain, atypical. Acute coronary event has been ruled out and stress test is negative for stress-induced ischemia Hypertension Asthma Chronic nicotine dependence Remote history of pulmonary embolism no longer on anticoagulation PLAN Stable from a cardiac perspective for discharge home. Follow-up in the office with Dr. Jim and she will undergo outpatient event monitoring. Nurse Practitioner note has been reviewed, I agree with a documented findings and plan of care. Patient was seen and examined. Objective - Vital Signs Vital signs: Vital Signs Temp 97.9 F 12/22/19 11:18 Pulse 80 12/22/19 11:18 Resp 18 12/22/19 11:18 BP 119/66 12/22/19 11:18 Pulse Ox 96 12/22/19 11:18 Intake & Output 12/21/19 12/22/19 12/22/19 18:59 06:59 18:59 Intake Total 520 240 Output Total 250 Balance 520 -250 240 Weight 127.7 kg 130 kg Intake: Intake, IV Titration 100 Amount Sodium Chloride 0.9% 1, 100 000 ml @ 20 mls/hr IV . Q24H [facility] Rx#:[id number] Oral 420 240 Output: Urine 250 Other: Voiding Method Toilet Toilet # Voids 0 - Labs CBC & Chem 7: 12/20/19 20:50 12/20/19 20:50 Labs: Abnormal Lab Results - Last 24 Hours (Table) 12/21/19 12/21/19 12/21/19 Range/Units 03:09 16:58 20:27 POC Glucose (mg/dL) 210 H 271 H (75-99) mg/dL TSH 0.435 L (0.465-4.680) mIU/L 12/22/19 12/22/19 Range/Units 06:14 11:44 POC Glucose (mg/dL) 240 H 220 H (75-99) mg/dL TSH (0.465-4.680) mIU/L Microbiology - Last 24 Hours (Table) 12/20/19 20:50 Blood Culture - Preliminary Blood No Growth after 24 hours
[2019-12-22 13:09] LABS: T4, Free (Free Thyroxine) 1.21 ng/dL (0.78-2.19)
--- NOTE | 2019-12-22 13:28 | P.DS ---
Providers Date of admission: 12/20/19 22:07 Expected date of discharge: 12/22/19 Attending physician: Damian Flores Consults: 12/20/19 23:31 Consult Physician Routine Consulting Provider: Chava Pavon Consult Reason/Comments: chest pain Do you want consulting provider notified?: Yes, Notify in am Primary care physician: Damian Flores [place] [facility] Course: Diagnosis on discharge: #1 episodes of chest pain, on the day prior to admission and on the day of admission, patient is admitted to telemetry floor cardiology consult was requested 3 sets of cardiac enzymes were ordered, EKG without any acute abnormality #2 acute purulent bronchitis with an acute asthma exacerbation chest x-ray without any evidence of acute infiltrate patient was having shortness of breath and wheezing in the emergency room she was started on IV Solu-Medrol, she was continued on albuterol nebulizer. Patient improved she was discharged home on oral steroids, oral Zithromax, and albuterol inhaler will follow up in the office in 1-2 weeks. Covid 19 testing was not done as patient did not meet criteria however she was counseled in length to return to emergency room if hav ing elevated temperature or worsening shortness of breath. #3 underlying history of hypertension #4 underlying history of depression #5 underlying history of gastroesophageal reflux disease Hospital course: Kristy Pardo is a 49-year-old female who presented to [facility] emergency room with a chief complaint of chest pain she describes a dull pain in the middle of her sternum like somebody has punched her that started on the day prior to admission. Patient stated that she has been sick for several weeks with sneezing coughing and shortness of breath she contacted telemedicine at [facility] and was given a course of steroids and cough syrup and an inhaler she felt better for a short while then she started having coughing and shortness of breath again. However when she started having chest pain she decided to come to emergency room. Past medical history significant for history of hypertension, history of migraine headache, history of depression, history of asthma and history of gastroesophageal reflux disease, she still smokes few cigarettes per day. On 12/22/2019 patient was seen and examined on the medical floor she is alert and oriented 3 in no apparent distress she is still complaining of cough otherwise she denies any complaints she had some episodes of palpitation. She was evaluated again by cardiology and was cleared for discharge. She will be switched to oral antibiotic and oral steroids and will be discharged home she was notified to return to emergency room if having any fever or if having any worsening shortness of breath. Otherwise she will be followed in our office in the next 1-2 weeks for further evaluation and treatment she will also be followed at cardiology office for 30 days event monitor for assessment of palpitation. Patient Condition at Discharge: Stable Plan - Discharge Summary Discharge Rx Participant: Yes New Discharge Prescriptions: New predniSONE 10 mg PO DIRECTED #30 tab Acetaminophen Tab [Tylenol] 650 mg PO Q6HR PRN tab PRN Reason: Fever And/ Or Pain Azithromycin [Zithromax Z-pack] 0 mg PO DIRECTED #6 tab Continue Omeprazole 20 mg PO HS Losartan/Hydrochlorothiazide [Losartan-Hctz 100-25 mg Tab] 1 tab PO HS SUMAtriptan SUCCINATE [Sumatriptan Succinate] 100 mg PO DAILY PRN PRN Reason: Migraine Headache Albuterol Sulfate [Ventolin HFA] 2 puff INHALATION Q4H PRN PRN Reason: Shortness Of Breath Escitalopram Oxalate [Lexapro] 20 mg PO DAILY Discharge Medication List Omeprazole 20 mg PO HS 07/11/17 [History] Losartan/Hydrochlorothiazide [Losartan-Hctz 100-25 mg Tab] 1 tab PO HS 09/01/19 [History] SUMAtriptan SUCCINATE [Sumatriptan Succinate] 100 mg PO DAILY PRN 09/01/19 [History] Albuterol Sulfate [Ventolin HFA] 2 puff INHALATION Q4H PRN 12/20/19 [History] Escitalopram Oxalate [Lexapro] 20 mg PO DAILY 12/20/19 [History] Acetaminophen Tab [Tylenol] 650 mg PO Q6HR PRN tab 12/22/19 [Rx] Azithromycin [Zithromax Z-pack] 0 mg PO DIRECTED #6 tab 12/22/19 [Rx] predniSONE 10 mg PO DIRECTED #30 tab 12/22/19 [Rx] Follow up Appointment(s)/Referral(s): Damian Flores MD [Primary Care Provider] - 1-2 days
== END 2019-12-22 15:27 | disposition home or self-care (01) ==
LOC: EC 20:07 → 3SCARD 22:07
PROVIDERS: ADMIT Internal Medicine; ATTEND Internal Medicine
DX: R07.9 Chest pain, unspecified (principal); J44.0 Chronic obstructive pulmonary disease with (acute) lower respiratory infection; J44.9 Chronic obstructive pulmonary disease, unspecified; J20.9 Acute bronchitis, unspecified; F17.200 Nicotine dependence, unspecified, uncomplicated; F32.9 Major depressive disorder, single episode, unspecified; I10 Essential (primary) hypertension; E66.9 Obesity, unspecified; Z68.41 Body mass index [BMI] 40.0-44.9, adult; I27.20 Pulmonary hypertension, unspecified; Z79.899 Other long term (current) drug therapy; Z80.0 Family history of malignant neoplasm of digestive organs; Z82.49 Family history of ischemic heart disease and other diseases of the circulatory system; Z86.711 Personal history of pulmonary embolism; Z86.718 Personal history of other venous thrombosis and embolism; Z88.1 Allergy status to other antibiotic agents; Z88.5 Allergy status to narcotic agent; Z88.0 Allergy status to penicillin; Z88.2 Allergy status to sulfonamides
CPT/HCPCS: 96376 ×2; 96365; 96366 ×2; 96375; 99285; 36415; 94640; 93005; 93351; 85379 ×2; 84439; 83880; 80061; 80053; 84443; 83605; 83735; 84484 ×2; 85025; 85610; 85730; 87040; 71045; G0378 ×3; J1250; J2920 ×2; J2930; J0456 ×2; 93306

== ENCOUNTER 2020-01-01 12:24 | Observation (INO) | payer BC ==
[2020-01-01] MEDS ORDERED: SODIUM CHLORIDE 0.9% 1,000 ML IV STA (12:47)
[2020-01-01] MEDS ORDERED: ASPIRIN 81 MG PO STA (12:47)
[2020-01-01] MEDS ORDERED: NITROGLYCERIN SL TABS 0.4 MG TAB SUBLINGUAL STA (12:56)
--- NOTE | 2020-01-01 13:02 | ED ---
Chest Pain HPI - General Chief Complaint: Chest Pain Stated Complaint: Chest Pain Time Seen by Provider: 01/01/20 12:31 Source: patient Mode of arrival: ambulatory Limitations: no limitations - History of Present Illness Initial Comments: Patient is a 49-year-old female, with history of hypertension, PE, COPD, presenting to emergency Department with complaints of chest pain, shortness of breath for the last 2 weeks. Patient was in the hospital approximately 2 weeks ago for similar complaint and was worked up for chest pain. Patient states she was tested for COVID 19 actually 3 days ago but has not heard results yet. Patient states the last 24 hours her symptoms have increased and she's been having palpitations as well as increasing shortness of breath and chest pain that she describes in the middle of her chest which is squeezing. Patient does have a history of PE that was approximately 6 years ago, she was on blood thinners for 1 year then was discontinued. Patient is in every day smoker. She admits to having a mild cough. She denies fever, chills, abdominal pain, nausea, vomiting. She states she took a half aspirin yesterday, none today. She has no other complaints. Upon arrival to the ER, patient was slightly tachycardia, rest of vitals normal. - Related Data Home Medications Medication Instructions Recorded Confirmed Omeprazole 20 mg PO HS 07/11/17 01/01/20 Losartan/Hydrochlorothiazide 1 tab PO HS 09/01/19 01/01/20 [Losartan-Hctz 100-25 mg Tab] SUMAtriptan SUCCINATE [Sumatriptan 100 mg PO DAILY PRN 09/01/19 01/01/20 Succinate] Albuterol Sulfate [Ventolin HFA] 2 puff INHALATION RT-Q4H PRN 12/20/19 01/01/20 Escitalopram Oxalate [Lexapro] 20 mg PO DAILY 12/20/19 01/01/20 predniSONE See Taper PO DAILY 01/01/20 01/01/20 Previous Rx's Medication Instructions Recorded Acetaminophen Tab [Tylenol] 650 mg PO Q6HR PRN tab 12/22/19 Allergies Allergy/AdvReac Type Severity Reaction Status Date / Time codeine AdvReac Confusion Verified 01/01/20 14:56 levofloxacin [From Levaquin] AdvReac Confusion Verified 01/01/20 14:56 Penicillins AdvReac Rash/Hives Verified 01/01/20 14:56 Sulfa (Sulfonamide AdvReac Rash/Hives Verified 01/01/20 14:56 Antibiotics) Review of Systems ROS Statement: Those systems with pertinent positive or pertinent negative responses have been documented in the HPI. ROS Other: All systems not noted in ROS Statement are negative. EKG Findings - EKG Comments: EKG Findings:: Ventricular rate 103, P on arrival 124, QTC 442. Sinus tach, no signs of acute ischemia. Similar to previous EKG on 12/20/2019. Past Medical History Past Medical History: Deep Vein Thrombosis (DVT), Hypertension, Pulmonary Embolus (PE) Additional Past Medical History / Comment(s): currently not on any blood thinners History of Any Multi-Drug Resistant Organisms: None Reported Past Surgical History: Appendectomy Additional Past Surgical History / Comment(s): lithotripsy Past Anesthesia/Blood Transfusion Reactions: Previous Problems w/ Anesthesia Additional Past Anesthesia/Blood Transfusion Reaction / Comment(s): patient states she had a hard time waking up Past Psychological History: Depression Smoking Status: Current every day smoker Past Alcohol Use History: Occasional Past Drug Use History: None Reported - Past Family History Mother Family Medical History: Myocardial Infarction ([place]) Father Family Medical History: Cancer Additional Family Medical History / Comment(s): from liver cancer General Exam - General Exam Comments Initial Comments: GENERAL: Patient looks fatigued, in no acute distress. HEAD: Atraumatic, normocephalic. EYES: Pupils equal round and reactive to light, extraocular movements intact, sclera anicteric, conjunctiva are normal. ENT: TMs normal, nares patent, oropharynx clear without exudates. Moist mucous membranes. NECK: Normal range of motion, supple without lymphadenopathy or JVD. LUNGS: Diminished breath sounds in the left, No wheezes rales or rhonchi. HEART: Tachycardia rate and rhythm without murmurs, rubs or gallops. ABDOMEN: Soft, nontender, normoactive bowel sounds. No guarding, no rebound. No masses appreciated. : Deferred EXTREMITIES: Normal range of motion, no pitting or edema. No clubbing or cyanosis. NEUROLOGICAL: Normal speech, normal gait. PSYCH: Normal mood, normal affect. SKIN: Warm, Dry, normal turgor, no rashes or lesions noted. Limitations: no limitations Course Vital Signs 01/01/20 01/01/20 01/01/20 12:26 12:49 13:20 Temperature 97.7 F Pulse Rate 108 H 93 Pulse Rate [ Left Radial] Respiratory 20 22 20 Rate Blood Pressure 141/91 142/91 Blood Pressure [Left Arm] O2 Sat by Pulse 99 99 Oximetry 01/01/20 01/01/20 01/01/20 14:31 14:49 14:57 Temperature 98.2 F Pulse Rate 84 84 Pulse Rate [ Left Radial] Respiratory 20 20 Rate Blood Pressure 123/84 Blood Pressure [Left Arm] O2 Sat by Pulse 100 99 Oximetry 01/01/20 15:16 Temperature 97.7 F Pulse Rate Pulse Rate [ 76 Left Radial] Respiratory 16 Rate Blood Pressure Blood Pressure 117/73 [Left Arm] O2 Sat by Pulse 100 Oximetry Chest Pain MDM - MDM Patient 49-year-old female here for chest pain, shortness of breath has been increasing over the past day. Patient's slight tach and arrival, rest of vitals normal. On exam patient has diminished sounds on the left, no wheezes. Rest of exam is benign. EKG shows tachycardia, no signs of ischemia. Lab work shows leukocytosis of 14.6, d-dimer is normal, glucose is 200. A troponin is normal. Patient given fluids, and aspirin as well as a nitro. The nitro did not improve her symptoms. Patient was discussed with Dr. Flores who recommends admission to observation for repeat tropes. Patient is agreeable with this plan of care. Case discussed with Dr. Reed. Disposition Clinical Impression: SOB (shortness of breath), Chest pain Disposition: ADMITTED IP TO THIS [facility] Condition: Stable Is patient prescribed a controlled substance at d/c from ED?: No Decision Date: 01/01/20 Decision Time: 14:51
[2020-01-01 13:29] LABS: Basophils % (A) 0 %; Eosinophils # (A) 0.1 k/uL (0-0.7); Eosinophils % (A) 1 %; HCT 38.8 % (34.0-46.0); HGB 12.1 gm/dL (11.4-16.0); Hypochromasia Slight; Lymphocytes # (A) 2.4 k/uL (1.0-4.8); Lymphocytes % (A) 16 %; MCH 24.9 pg (25.0-35.0); MCHC 31.2 g/dL (31.0-37.0); MCV 79.8 fL (80.0-100.0); Mean Platelet Volume 6.4; Monocytes # (A) 0.7 k/uL (0-1.0); Monocytes % (A) 5 %; Neutrophils # (A) 11.3 k/uL (1.3-7.7); Neutrophils % (A) 78 %; Platelet Count 417 k/uL (150-450); RBC 4.87 m/uL (3.80-5.40); RDW 15.6 % (11.5-15.5); WBC 14.6 k/uL (3.8-10.6)
--- NOTE | 2020-01-01 13:30 | XR ---
EXAMINATION TYPE: XR chest 2V DATE OF EXAM: 01/01/2020 COMPARISON: 12/20/2019 HISTORY: 49-year-old female with chest pain TECHNIQUE: PA and lateral views FINDINGS: The heart is normal size. Aorta and pulmonary vasculature within normal limits. Large patient body burris bitus without consolidation or pleural effusion. IMPRESSION: No acute cardiopulmonary process.
[2020-01-01 13:46] LABS: ALT 24 U/L (4-34); AST 17 U/L (14-36); African American GFR (CKD) >90 (>60 ml/min/1.73 sqM); Alkaline Phosphatase 64 U/L (38-126); Anion Gap 6 mmol/L; Blood Urea Nitrogen 30 mg/dL (7-17); Calcium 9.8 mg/dL (8.4-10.2); Carbon Dioxide 29 mmol/L (22-30); Chloride 101 mmol/L (98-107); Glucose 200 mg/dL (74-99); Magnesium 1.8 mg/dL (1.6-2.3); Non-African American GFR(CKD) 79 (>60 ml/min/1.73 sqM); Potassium 4.2 mmol/L (3.5-5.1); Sodium 136 mmol/L (137-145); Total Bilirubin 0.3 mg/dL (0.2-1.3); Total Protein 7.4 g/dL (6.3-8.2)
[2020-01-01 14:00] LABS: D-Dimer 0.34 mg/L FEU (<0.60); INR 0.9 (<1.2); Prothrombin Time 9.4 sec (9.0-12.0)
[2020-01-01] MEDS ORDERED: NITROGLYCERIN SL TABS 0.4 MG TAB SUBLINGUAL PRN (14:47)
[2020-01-01] MEDS ORDERED: ACETAMINOPHEN TAB 325 MG TAB PO PRN (16:25)
[2020-01-01] MEDS ORDERED: ALBUTEROL NEBULIZED 2.5 MG/3 ML INHALATION PRN (16:25)
--- NOTE | 2020-01-01 16:25 | P.HPIM ---
History of Present Illness H&P Date: 01/01/20 Chief Complaint: Chest pain and tachycardia Christina Pardo is a 49-year-old female who presented to [facility] emergency room with a chief complaint of chest pain and tachycardia. Patient stated that at home her heart rate was up to 140, initial heart rate in the emergency room here was 108, patient was admitted to [facility] about 2 weeks ago with similar symptoms at that time she underwent a stress echocardiogram that was negative she was evaluated by cardiology and was discharged home she continued to have episodes on and off of chest pain, shortness of breath, low-grade fever and cough she was evaluated in our office at test for COVID 19 was done as outpatient and was reported negative today. Past Medical History Past Medical History: Deep Vein Thrombosis (DVT), Hypertension, Pulmonary Em bolus (PE) Additional Past Medical History / Comment(s): currently not on any blood thinners History of Any Multi-Drug Resistant Organisms: None Reported Past Surgical History: Appendectomy Additional Past Surgical History / Comment(s): lithotripsy Past Anesthesia/Blood Transfusion Reactions: Previous Problems w/ Anesthesia Additional Past Anesthesia/Blood Transfusion Reaction / Comment(s): patient states she had a hard time waking up Past Psychological History: Depression Additional Psychological History / Comment(s): Pt was seen in the doctors office for anxiety, unsure of specific diagnosis. Smoking Status: Current every day smoker Past Alcohol Use History: Occasional Past Drug Use History: None Reported - Past Family History Mother Family Medical History: AFIB, Congestive Heart Failure (CHF), Myocardial Infarction ([place]) Father Family Medical History: Cancer Additional Family Medical History / Comment(s): from liver cancer Medications and Allergies Home Medications Medication Instructions Recorded Confirmed Type Omeprazole 20 mg PO HS 07/11/17 01/01/20 History Losartan/Hydrochlorothiazide 1 tab PO HS 09/01/19 01/01/20 History [Losartan-Hctz 100-25 mg Tab] SUMAtriptan SUCCINATE [Sumatriptan 100 mg PO DAILY PRN 09/01/19 01/01/20 History Succinate] Albuterol Sulfate [Ventolin HFA] 2 puff INHALATION RT-Q4H PRN 12/20/19 01/01/20 History Escitalopram Oxalate [Lexapro] 20 mg PO DAILY 12/20/19 01/01/20 History Acetaminophen Tab [Tylenol] 650 mg PO Q6HR PRN tab 12/22/19 01/01/20 Rx predniSONE See Taper PO DAILY 01/01/20 01/01/20 History Allergies Allergy/AdvReac Type Severity Reaction Status Date / Time codeine AdvReac Confusion Verified 01/01/20 14:56 levofloxacin [From Levaquin] AdvReac Confusion Verified 01/01/20 14:56 Penicillins AdvReac Rash/Hives Verified 01/01/20 14:56 Sulfa (Sulfonamide AdvReac Rash/Hives Verified 01/01/20 14:56 Antibiotics) Physical Exam Vitals: Vital Signs Temp Pulse Pulse Resp BP BP Pulse Ox 01/01/20 15:16 97.7 F 76 16 117/73 100 01/01/20 14:57 98.2 F 84 20 123/84 99 01/01/20 14:31 84 20 01/01/20 13:20 93 20 142/91 99 01/01/20 12:49 22 01/01/20 12:26 97.7 F 108 H 20 141/91 99 Intake and Output 01/01/20 01/01/20 01/01/20 06:59 14:59 22:59 Other: # Voids 1 Weight 126.552 kg 126.552 kg In general patient is alert and oriented 3 in no apparent distress HEENT head normocephalic and atraumatic Neck is supple no JVD no goiter no lymphadenopathy Chest exam reveals a few scattered rhonchi no wheezing Cardiac exam reveals regular heart sounds no gallops no murmurs Abdomen is soft nontender no organomegaly with normal bowel sounds Extremity exam reveals no edema no cyanosis or clubbing Neurological examination reveals no gross focal deficit Results CBC & Chem 7: 01/01/20 13:07 01/01/20 13:07 Labs: Abnormal Lab Results - Last 24 Hours (Table) 01/01/20 01/01/20 01/01/20 Range/Units 13:07 13:07 13:07 WBC 14.6 H (3.8-10.6) k/uL MCV 79.8 L (80.0-100.0) fL MCH 24.9 L (25.0-35.0) pg RDW 15.6 H (11.5-15.5) % Neutrophils # 11.3 H (1.3-7.7) k/uL APTT 20.0 L (22.0-30.0) sec Sodium 136 L (137-145) mmol/L BUN 30 H (7-17) mg/dL Glucose 200 H (74-99) mg/dL Thrombosis Risk Factor Assmnt - Choose All That Apply Each Factor Represents 1 point: Age 41-60 years, Obesity (BMI >25) Other Risk Factors: Yes Each Risk Factor Represents 3 Points: History of DVT/PE Other congenital or acquired thrombophilia - If yes, enter type in comment: No Thrombosis Risk Factor Assessment Total Risk Factor Score: 5 Thrombosis Risk Factor Assessment Level: High Risk Assessment and Plan Plan: #1 episodes of chest pain, cause is unclear, EKG reveals sinus tachycardia without any ischemic changes, troponin first set is negative, d-dimer is normal, patient underwent a stress echo recently, will reconsult cardiology for evaluation. #2 recent upper respiratory infection, patient received oral steroids and oral Zithromax, testing for Covid 19 was negative as outpatient. #3 mild leukocytosis likely related to steroid use will monitor #4 mild hyperglycemia likely related to steroid use glucose on presentation was 200, will check hemoglobin A1c #5 tachycardia, will check TSH #6 underlying history of migraine headache #7 underlying history of asthma #8 underlying history of hypertension #9 underlying history of gastroesophageal reflux disease #10 underlying history of depression Patient was seen and examined home medications were reordered Cardiology consultation requested Will follow during this hospitalization
[2020-01-01] MEDS ORDERED: PANTOPRAZOLE 40 MG TABLET PO SCH (21:00)
[2020-01-01] MEDS ORDERED: LOSARTAN-HCTZ 50-12.5 MG 1 EACH TAB PO SCH (21:00)
[2020-01-02 02:13] LABS: Cholesterol 184 mg/dL (<200); HDL Cholesterol 52 mg/dL (40-60); LDL Cholesterol,Calculated 67 mg/dL (0-99); Triglycerides 323 mg/dL (<150)
[2020-01-02 04:03] VITALS: RESP 16
--- NOTE | 2020-01-02 06:39 | P.OBCN ---
History of Present Illness Consult date: 01/02/20 Chief complaint: Chest pain and vulvar/vaginal cyst. History of present illness: This patient is a pleasant 49-year-old 0 para 0 female who is admitted yesterday for evaluation of chest pain and tachycardia. Please see dictated history and physical per her primary care physician and emergency department. Incidentally on admission patient has reported a vulvar/vaginal cyst. Patient states that this is been there for over a month and comes and goes. She gets her gynecologic care with the nurse practitioner at Dr. Flores's office. Patient denies any significant past gynecologic history. Patient states that for the most part this cyst is asymptomatic. Review of Systems Constitutional: Denies chills, Denies fever Genitourinary: Denies dysuria, Denies hematuria Past Medical History Past Medical History: Deep Vein Thrombosis (DVT), Hypertension, Pulmonary Embolus (PE) Additional Past Medical History / Comment(s): currently not on any blood thinners History of Any Multi-Drug Resistant Organisms: None Reported Past Surgical History: Appendectomy Additional Past Surgical History / Comment(s): lithotripsy Past Anesthesia/Blood Transfusion Reactions: Previous Problems w/ Anesthesia Additional Past Anesthesia/Blood Transfusion Reaction / Comm: patient states she had a hard time waking up Past Psychological History: Depression Smoking Status: Current every day smoker Past Alcohol Use History: Occasional Past Drug Use History: None Reported - Past Family History Mother Family Medical History: Myocardial Infarction ([place]) Father Family Medical History: Cancer Additional Family Medical History / Comment(s): from liver cancer Medications and Allergies Home Medications Medication Instructions Recorded Confirmed Type Omeprazole 20 mg PO HS 07/11/17 01/01/20 History Losartan/Hydrochlorothiazide 1 tab PO HS 09/01/19 01/01/20 History [Losartan-Hctz 100-25 mg Tab] SUMAtriptan SUCCINATE [Sumatriptan 100 mg PO DAILY PRN 09/01/19 01/01/20 History Succinate] Albuterol Sulfate [Ventolin HFA] 2 puff INHALATION RT-Q4H PRN 12/20/19 01/01/20 History Escitalopram Oxalate [Lexapro] 20 mg PO DAILY 12/20/19 01/01/20 History Acetaminophen Tab [Tylenol] 650 mg PO Q6HR PRN tab 12/22/19 01/01/20 Rx predniSONE See Taper PO DAILY 01/01/20 01/01/20 History Allergies Allergy/AdvReac Type Severity Reaction Status Date / Time codeine AdvReac Confusion Verified 01/01/20 14:56 levofloxacin [From Levaquin] AdvReac Confusion Verified 01/01/20 14:56 Penicillins AdvReac Rash/Hives Verified 01/01/20 14:56 Sulfa (Sulfonamide AdvReac Rash/Hives Verified 01/01/20 14:56 Antibiotics) Exam Vital Signs Temp Pulse Pulse Resp BP BP Pulse Ox 01/02/20 04:00 97.7 F 80 16 113/55 98 01/02/20 00:00 98.2 F 85 18 103/63 100 01/01/20 20:00 98.6 F 82 18 112/63 100 01/01/20 16:00 97.7 F 76 16 117/73 100 01/01/20 15:16 97.7 F 76 16 117/73 100 01/01/20 14:57 98.2 F 84 20 123/84 99 01/01/20 14:49 100 01/01/20 14:31 84 20 01/01/20 13:20 93 20 142/91 99 01/01/20 12:49 22 01/01/20 12:26 97.7 F 108 H 20 141/91 99 Intake and Output 01/01/20 01/01/20 01/02/20 14:59 22:59 06:59 Output Total 210 Balance -210 Output: Urine 210 Other: Voiding Method Toilet Toilet # Voids 1 1 Weight 126.552 kg 126.552 kg 128.7 kg - OBG Physical Exam Vulva: Exam is significantly limited because the patient is in a hospital bed, however visual inspection of the vulvar area shows what appears to be a small Bartholin's cyst of the right labial area. I am unable to do a speculum exam or bimanual exam. This is best reserved for the office. Results Result Diagrams: 01/01/20 13:07 01/01/20 13:07 Abnormal Lab Results - Last 24 Hours (Table) 01/01/20 01/01/20 01/01/20 Range/Units 13:07 13:07 13:07 WBC 14.6 H (3.8-10.6) k/uL MCV 79.8 L (80.0-100.0) fL MCH 24.9 L (25.0-35.0) pg RDW 15.6 H (11.5-15.5) % Neutrophils # 11.3 H (1.3-7.7) k/uL APTT 20.0 L (22.0-30.0) sec Sodium 136 L (137-145) mmol/L BUN 30 H (7-17) mg/dL Glucose 200 H (74-99) mg/dL Triglycerides (<150) mg/dL 01/02/20 Range/Units 00:32 WBC (3.8-10.6) k/uL MCV (80.0-100.0) fL MCH (25.0-35.0) pg RDW (11.5-15.5) % Neutrophils # (1.3-7.7) k/uL APTT (22.0-30.0) sec Sodium (137-145) mmol/L BUN (7-17) mg/dL Glucose (74-99) mg/dL Triglycerides 323 H (<150) mg/dL Assessment and Plan Assessment: This is a pleasant 49-year-old 0 para 0 female with 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 There is no significant cellulitis at this time, however I recommended a 7-10 day course of Keflex to prevent progression. I explained the natural history of these Bartholin's cysts and I did recommend that she have follow-up with her nurse practitioner in 1-2 weeks for a more thorough examination. She does state that she is has a penicillin ALLERGY however she has tolerated Keflex before in the past. Thank you very much for this consultation. (1) Bartholin cyst Current Visit: Yes Status: Acute Code(s): N75.0 - CYST OF BARTHOLIN'S GLAND SNOMED Code(s): 21535476
[2020-01-02] MEDS ORDERED: ALBUTEROL HFA INHALER INHALATION PRN (07:56)
[2020-01-02] MEDS ORDERED: CEPHALEXIN 500 MG CAP PO SCH (09:00)
[2020-01-02] MEDS ORDERED: ASPIRIN 325 MG TAB PO SCH (09:00)
[2020-01-02] MEDS ORDERED: ESCITALOPRAM 20 MG TAB PO SCH (09:00)
[2020-01-02 11:34] VITALS: BP 111/59; PULSE 84; TEMP 97.8
--- NOTE | 2020-01-02 12:12 | P.CRDCN ---
History of Present Illness Consult date: 01/02/20 Requesting physician: Damian Flores Consult reason: chest pain Chief complaint: Chest pain, palpitations, diaphoresis History of present illness: This is a 49-year-old female with history of hypertension, nicotine dependence, asthma, history of pulmonary embolism in the past, was recently in the hospital at the beginning of this month with symptoms of chest discomfort. At that time her troponins were negative, her EKG showed a sinus tachycardia with nonspecific ST-T wave changes. The patient underwent a dobutamine echocardiographic study during that admission which was negative for any reversible ischemia. She also had an echo performed on that admission which revealed an ejection fraction of 55-60%. She presents to the hospital on this occasion with symptoms again of similar chest discomfort which comes and goes, she also complains of feeling intermittent palpitations and episodes of hot flashes and diaphoresis. Her chest x-ray did not reveal any acute pulmonary process. EKG shows a sinus tachycardia with no acute changes. Laboratory data, white blood cell count 14.6, hemoglobin 12.1, platelet count 417. D-dimer 0.34, sodium 136, potassium 4.2, BUN 30, creatinine 0.8. Troponins are negative 3. Patient has not had any evidence of any significant tachycardia or bradycardia arrhythmias on the monitor. Past Medical History Past Medical History: Deep Vein Thrombosis (DVT), Hypertension, Pulmonary Embolus (PE) Additional Past Medical History / Comment(s): currently not on any blood thinners History of Any Multi-Drug Resistant Organisms: None Reported Past Surgical History: Appendectomy Additional Past Surgical History / Comment(s): lithotripsy Past Anesthesia/Blood Transfusion Reactions: Previous Problems w/ Anesthesia Additional Past Anesthesia/Blood Transfusion Reaction / Comment(s): patient states she had a hard time waking up Past Psychological History: Depression Smoking Status: Current every day smoker Past Alcohol Use History: Occasional Past Drug Use History: None Reported - Past Family History Mother Family Medical History: Myocardial Infarction ([place]) Father Family Medical History: Cancer Additional Family Medical History / Comment(s): from liver cancer Medications and Allergies Home Medications Medication Instructions Recorded Confirmed Type Omeprazole 20 mg PO HS 07/11/17 01/01/20 History Losartan/Hydrochlorothiazide 1 tab PO HS 09/01/19 01/01/20 History [Losartan-Hctz 100-25 mg Tab] SUMAtriptan SUCCINATE [Sumatriptan 100 mg PO DAILY PRN 09/01/19 01/01/20 History Succinate] Albuterol Sulfate [Ventolin HFA] 2 puff INHALATION RT-Q4H PRN 12/20/19 01/01/20 History Escitalopram Oxalate [Lexapro] 20 mg PO DAILY 12/20/19 01/01/20 History Acetaminophen Tab [Tylenol] 650 mg PO Q6HR PRN tab 12/22/19 01/01/20 Rx predniSONE See Taper PO DAILY 01/01/20 01/01/20 History Allergies Allergy/AdvReac Type Severity Reaction Status Date / Time codeine AdvReac Confusion Verified 01/01/20 14:56 levofloxacin [From Levaquin] AdvReac Confusion Verified 01/01/20 14:56 Penicillins AdvReac Rash/Hives Verified 01/01/20 14:56 Sulfa (Sulfonamide AdvReac Rash/Hives Verified 01/01/20 14:56 Antibiotics) Physical Exam Vitals: Vital Signs Temp Pulse Pulse Resp BP BP Pulse Ox 01/02/20 11:31 97.8 F 84 16 111/59 97 01/02/20 07:40 97.5 F L 94 16 110/62 97 01/02/20 04:00 97.7 F 80 16 113/55 98 01/02/20 00:00 98.2 F 85 18 103/63 100 01/01/20 20:00 98.6 F 82 18 112/63 100 01/01/20 16:00 97.7 F 76 16 117/73 100 01/01/20 15:16 97.7 F 76 16 117/73 100 01/01/20 14:57 98.2 F 84 20 123/84 99 01/01/20 14:49 100 01/01/20 14:31 84 20 01/01/20 13:20 93 20 142/91 99 01/01/20 12:49 22 01/01/20 12:26 97.7 F 108 H 20 141/91 99 Intake and Output 01/01/20 01/02/20 01/02/20 22:59 06:59 14:59 Intake Total 240 Output Total 210 Balance -210 240 Intake: Oral 240 Output: Urine 210 Other: Voiding Method Toilet Toilet # Voids 1 1 Weight 126.552 kg 128.7 kg PHYSICAL EXAMINATION: GENERAL: 49-year-old female in no acute distress at the time of my examination HEENT: Head is atraumatic, normocephalic. Pupils equal, round. Sclera anicteric. Conjunctiva are clear. Mucous membranes of the mouth are moist. Neck is supple. There is no elevated jugular venous pressure. No carotid bruit is heard. HEART EXAMINATION: Heart S1, S2 normal. No murmur or gallop heard. CHEST EXAMINATION: Lungs are clear to auscultation and precussion. No chest wall tenderness is noted on palpation or with deep breathing. ABDOMEN: Soft, nontender. Bowel sounds are heard. No organomegaly noted. EXTREMITIES: 2+ peripheral pulses with no evidence of peripheral edema and no calf tenderness noted. NEUROLOGIC patient is awake, alert and oriented 3 . . Results 01/01/20 13:07 01/01/20 13:07 Cardiac Enzymes 01/01/20 01/01/20 01/01/20 Range/Units 13:07 13:07 19:15 AST 17 (14-36) U/L Troponin I <0.012 <0.012 (0.000-0.034) ng/mL 01/02/20 Range/Units 00:32 AST (14-36) U/L Troponin I <0.012 (0.000-0.034) ng/mL Coagulation 01/01/20 Range/Units 13:07 PT 9.4 (9.0-12.0) sec APTT 20.0 L (22.0-30.0) sec Lipids 01/02/20 Range/Units 00:32 Triglycerides 323 H (<150) mg/dL Cholesterol 184 (<200) mg/dL HDL Cholesterol 52 (40-60) mg/dL CBC 01/01/20 Range/Units 13:07 WBC 14.6 H (3.8-10.6) k/uL RBC 4.87 (3.80-5.40) m/uL Hgb 12.1 (11.4-16.0) gm/dL Hct 38.8 (34.0-46.0) % Plt Count 417 (150-450) k/uL Comprehensive Metabolic Panel 01/01/20 Range/Units 13:07 Sodium 136 L (137-145) mmol/L Potassium 4.2 (3.5-5.1) mmol/L Chloride 101 (98-107) mmol/L Carbon Dioxide 29 (22-30) mmol/L BUN 30 H (7-17) mg/dL Creatinine 0.88 (0.52-1.04) mg/dL Glucose 200 H (74-99) mg/dL Calcium 9.8 (8.4-10.2) mg/dL AST 17 (14-36) U/L ALT 24 (4-34) U/L Alkaline Phosphatase 64 (38-126) U/L Total Protein 7.4 (6.3-8.2) g/dL Albumin 4.0 (3.5-5.0) g/dL Current Medications Generic Name Dose Route Start Last Admin Trade Name Freq PRN Reason Stop Dose Admin Acetaminophen 650 mg 01/01/20 16:25 Tylenol Tab PO Q6HR PRN Fever and/ or Pain Albuterol Sulfate 2 puff 01/02/20 07:56 Ventolin Hfa Inhaler INHALATION RT-Q4H PRN Shortness Of Breath Aspirin 325 mg 01/02/20 09:00 01/02/20 09:26 Aspirin PO 325 mg DAILY LUCI Administration Cephalexin 500 mg 01/02/20 09:00 01/02/20 09:26 Keflex PO 500 mg QID LUCI Administration Escitalopram Oxalate 20 mg 01/02/20 09:00 01/02/20 09:26 Lexapro PO 20 mg DAILY LUCI Administration HCTZ/Losartan Potassium 2 each 01/01/20 21:00 01/01/20 20:10 Hyzaar 50-12.5 PO 2 each HS LUCI Administration Nitroglycerin 0.4 mg 01/01/20 14:47 Nitrostat SUBLINGUAL Q5M PRN Chest Pain Pantoprazole Sodium 40 mg 01/01/20 21:00 01/01/20 20:10 Protonix PO 40 mg HS LUCI Administration Intake and Output 01/01/20 01/02/20 01/02/20 22:59 06:59 14:59 Intake Total 240 Output Total 210 Balance -210 240 Intake: Oral 240 Output: Urine 210 Other: Voiding Method Toilet Toilet # Voids 1 1 Weight 126.552 kg 128.7 kg 01/01/20 13:07 01/01/20 13:07 EKG Interpretations (text) EKG shows a sinus tachycardia with no acute changes. Assessment and Plan Plan: Assessment and plan #1 chest pain, atypical features for acute coronary syndrome, dobutamine echoc ardiographic study performed earlier this month was negative for any reversible ischemia. She also had an echocardiogram performed on that admission which showed a normal left ventricular systolic function. #2 symptoms of palpitations with associated diaphoresis, patient has no documentation of any significant arrhythmias on the monitor. #3 hypertension #4 nicotine dependence #5 asthma #6 history of pulmonary embolism, d-dimer negative Plan Patient has been seen in consultation by Dr. Adalgisa Jim, recommended to be discharged home today with a 30 day event monitor for a two-week period. We wi ll make her a follow-up appointment in the office. DNP note has been reviewed, I agree with a documented findings and plan of care. Patient was seen and examined.
--- NOTE | 2020-01-02 12:50 | P.DS ---
Providers Date of admission: 01/01/20 14:49 Expected date of discharge: 01/02/20 Attending physician: Damian Flores Consults: 01/01/20 14:49 Consult Physician Urgent Consulting Provider: Rosanne Jim Consult Reason/Comments: chest pain Do you want consulting provider notified?: Yes 01/01/20 16:29 Consult Physician Routine Consulting Provider: Yaakov Diallo Consult Reason/Comments: labial cyst Do you want consulting provider notified?: Yes Primary care physician: [facility] Course: Diagnosis on discharge: #1 episodes of chest pain, cause is unclear, EKG reveals sinus tachycardia without any ischemic changes, troponin three sets negative, d-dimer is normal, patient underwent a stress echo recently, patient was seen by cardiology and was cleared for discharge, she will be given 30 day event monitor at the time of discharge #2 recent upper respiratory infection, patient received oral steroids and oral Zithromax, testing for Covid 19 was negative as outpatient. #3 mild leukocytosis likely related to steroid use will monitor #4 mild hyperglycemia likely related to steroid use glucose on presentation was 200, will check hemoglobin A1c #5 tachycardia, will check TSH #6 underlying history of migraine headache #7 underlying history of asthma #8 underlying history of hypertension #9 underlying history of gastroesophageal reflux disease #10 underlying history of depression Hospital course: Christina Pardo is a 49-year-old female who presented to [facility] emergency room with a chief complaint of chest pain and tachycardia. Patient stated that at home her heart rate was up to 140, initial heart rate in the emergency room here was 108, patient was admitted to [facility] about 2 weeks ago with similar symptoms at that time she underwent a stress echocardiogram that was negative she was evaluated by cardiology and was discharged home she continued to have episodes on and off of chest pain, shortness of breath, low-grade fever and cough she was evaluated in our office at test for COVID 19 was done as outpatient and was reported negative today. On 01/02/2020 Patient was seen and examined on the telemetry floor she is alert and oriented 3 in no apparent distress she was still having episodes of chest pain on and off she was evaluated by cardiology EKG and 3 sets of troponin are negative she was cleared for discharge patient had a stress test less than 2 weeks ago and it was negative she will have 30 day event monitor prior to disch arge she will follow up with the cardiology office as outpatient for further evaluation and treatment Patient Condition at Discharge: Stable Plan - Discharge Summary Discharge Rx Participant: Yes New Discharge Prescriptions: New Aspirin 325 mg PO DAILY tab Cephalexin [Keflex] 500 mg PO QID cap Nitroglycerin Sl Tabs [Nitrostat] 0.4 mg SUBLINGUAL Q5M PRN tab PRN Reason: Chest Pain Continue Omeprazole 20 mg PO HS Losartan/Hydrochlorothiazide [Losartan-Hctz 100-25 mg Tab] 1 tab PO HS SUMAtriptan SUCCINATE [Sumatriptan Succinate] 100 mg PO DAILY PRN PRN Reason: Migraine Headache Albuterol Sulfate [Ventolin HFA] 2 puff INHALATION RT-Q4H PRN PRN Reason: Shortness Of Breath Escitalopram Oxalate [Lexapro] 20 mg PO DAILY Acetaminophen Tab [Tylenol] 650 mg PO Q6HR PRN tab PRN Reason: Fever And/ Or Pain Discontinued predniSONE See Taper PO DAILY Discharge Medication List Omeprazole 20 mg PO HS 07/11/17 [History] Losartan/Hydrochlorothiazide [Losartan-Hctz 100-25 mg Tab] 1 tab PO HS 09/01/19 [History] SUMAtriptan SUCCINATE [Sumatriptan Succinate] 100 mg PO DAILY PRN 09/01/19 [History] Albuterol Sulfate [Ventolin HFA] 2 puff INHALATION RT-Q4H PRN 12/20/19 [History] Escitalopram Oxalate [Lexapro] 20 mg PO DAILY 12/20/19 [History] Acetaminophen Tab [Tylenol] 650 mg PO Q6HR PRN tab 12/22/19 [Rx] Aspirin 325 mg PO DAILY tab 01/02/20 [Rx] Cephalexin [Keflex] 500 mg PO QID cap 01/02/20 [Rx] Nitroglycerin Sl Tabs [Nitrostat] 0.4 mg SUBLINGUAL Q5M PRN tab 01/02/20 [Rx] Follow up Appointment(s)/Referral(s): Damian Flores MD [Primary Care Provider] - 1-2 days Activity/Diet/Wound Care/Special Instructions: 30 day event monitor on discharge
[2020-01-02 14:10] LABS: Hemoglobin A1C 7.1 % (4.0-6.0)
== END 2020-01-02 16:26 | disposition home or self-care (01) ==
LOC: EC 12:24 → 3SCARD 14:49
PROVIDERS: ADMIT Internal Medicine; ATTEND Internal Medicine
DX: R07.89 Other chest pain (principal); R61 Generalized hyperhidrosis; R00.2 Palpitations; R00.0 Tachycardia, unspecified; N75.0 Cyst of Bartholin's gland; J44.9 Chronic obstructive pulmonary disease, unspecified; I10 Essential (primary) hypertension; F17.200 Nicotine dependence, unspecified, uncomplicated; F32.9 Major depressive disorder, single episode, unspecified; E66.9 Obesity, unspecified; Z68.41 Body mass index [BMI] 40.0-44.9, adult; K21.9 Gastro-esophageal reflux disease without esophagitis; F41.9 Anxiety disorder, unspecified; G43.909 Migraine, unspecified, not intractable, without status migrainosus; D72.829 Elevated white blood cell count, unspecified; R73.9 Hyperglycemia, unspecified; N89.8 Other specified noninflammatory disorders of vagina; Z79.52 Long term (current) use of systemic steroids; Z79.899 Other long term (current) drug therapy; Z88.0 Allergy status to penicillin; Z88.1 Allergy status to other antibiotic agents; Z88.2 Allergy status to sulfonamides; Z88.5 Allergy status to narcotic agent; Z86.711 Personal history of pulmonary embolism; Z86.718 Personal history of other venous thrombosis and embolism; Z87.09 Personal history of other diseases of the respiratory system; Z90.49 Acquired absence of other specified parts of digestive tract; Z82.49 Family history of ischemic heart disease and other diseases of the circulatory system; Z80.0 Family history of malignant neoplasm of digestive organs
CPT/HCPCS: 93005 ×2; 96360; 96361; 99285; 36415; 93270; 85379 ×2; 80061; 80053; 84443; 83735; 84484 ×2; 85025; 85610; 85730; 83036; 71046; G0378 ×2

== ENCOUNTER → 2020-01-15 | Outpatient (CLI) | payer BC ==
[2020-01-15 14:47] LABS: Anisocytosis Slight; HCT 37.8 % (34.0-46.0); HGB 12.2 gm/dL (11.4-16.0); Hypochromasia Slight; MCHC 32.3 g/dL (31.0-37.0); MCV 80.5 fL (80.0-100.0); Platelet Count 362 k/uL (150-450); RDW 16.2 % (11.5-15.5); WBC 8.8 k/uL (3.8-10.6)
[2020-01-15 14:56] LABS: Calcium 9.8 mg/dL (8.4-10.2); Potassium 4.2 mmol/L (3.5-5.1)
--- NOTE | 2020-01-15 15:49 | CT ---
CT CHEST FOR PULMONARY EMBOLISM. EXAMINATION TYPE: CT angio chest DATE OF EXAM: 01/15/2020 INDICATION: chest pain r/o dissection CT DLP: 1427.8 mGycm, Automated exposure control for dose reduction was used. CONTRAST: Patient injected with 100 mL of Isovue 370. COMPARISON: 07/30/2013 TECHNIQUE: CT of the chest is performed on a spiral scan at 2 mm thick sections. Study is performed with intravenous contrast timed for evaluation for pulmonary embolism. This will limit additional po rtions of the evaluation. 3-D MIP images reconstructed by the technologist are reviewed on the compu ter in the coronal and sagittal planes. FINDINGS: No persistent filling defects are evident to suggest an acute pulmonary embolism. Thoracic aorta appears unremarkable. No dissection or aneurysm is identified. No mediastinal or hilar adenopathy enlarged by CT criteria is evident. The ascending aorta diameter at the level of the main pulmonary artery is 3.1 cm. The main pulmonary artery diameter at the bifur cation is 2.4 cm. Lung windows are clear. Limited CT section through the upper abdomen are unremarkable. IMPRESSIONS: 1. No acute pulmonary embolism. 2. Normal thoracic aorta without dissection or aneurysm
== END | disposition home or self-care (01) ==
LOC: RADCTMAIN 13:04
PROVIDERS: ATTEND Internal Medicine Interventional Cardiology
DX: R07.9 Chest pain, unspecified (principal); I71.9 Aortic aneurysm of unspecified site, without rupture; I25.10 Atherosclerotic heart disease of native coronary artery without angina pectoris; I10 Essential (primary) hypertension
CPT/HCPCS: 80048; 84443; 85027; 71275; Q9967

== ENCOUNTER → 2020-01-18 | Outpatient (CLI) | payer BC | END | disposition home or self-care (01) | LOC: LABPAT 11:21 | PROVIDERS: ATTEND Internal Medicine Interventional Cardiology | DX: Z01.818 Encounter for other preprocedural examination (principal); R07.9 Chest pain, unspecified | CPT/HCPCS: 36415; 82565; 84520 ==

== ENCOUNTER → 2020-01-21 | Outpatient (CLI) | payer BC | END | disposition home or self-care (01) | LOC: LABWHC1 09:47 | PROVIDERS: ATTEND Internal Medicine Interventional Cardiology | DX: U07.1 COVID-19 (principal) | CPT/HCPCS: 87635 ==

== ENCOUNTER 2020-01-23 12:40 | Day surgery (SDC) | payer BC ==
[2020-01-22 08:23] VITALS: BMI 45.4
[~2020-01-23 12:40] MED LIST changes: +ALPRAZolam 0.25 MG TAB PO PRN; +ALPRAZolam 0.5 MG TAB PO PRN; +ASPIRIN 325 MG TAB PO STA; +ATORVASTATIN 80 MG TAB PO STA; -LACTATED RINGERS 1,000 ML IV SCH; +NITROGLYCERIN SL TABS 0.4 MG TAB SUBLINGUAL PRN; +SODIUM CHLORIDE 0.9% 1,000 ML in EMPTY BAG 1 BAG IV ONE
[2020-01-23] MEDS ORDERED: VERAPAMIL 2.5 MG/ML 2 ML AMP ONE (13:22)
[2020-01-23] MEDS ORDERED: LIDOCAINE 1% INJ 10MG/ML (20 ML MDV) ONE (13:23)
[2020-01-23] MEDS ORDERED: HEPARIN SODIUM 1,000 UN/ML (10ML VL) ONE (13:23)
[2020-01-23] MEDS ORDERED: SODIUM CHLORIDE 0.9% 1,000 ML IV ONE (13:25)
[2020-01-23 13:34] VITALS: RESP 16; TEMP 97.7
[2020-01-23] MEDS ORDERED: MIDAZOLAM 2 MG/2 ML VIAL IV ONE (13:45)
[2020-01-23] MEDS ORDERED: fentaNYL (PF) 50 MCG/ML 2 ML AMP ONE (13:47)
[2020-01-23] MEDS ORDERED: LIDOCAINE 1% INJ 10MG/ML (20 ML MDV) SQ ONE (13:47)
[2020-01-23] MEDS ORDERED: fentaNYL (PF) 50 MCG/ML 2 ML AMP IV ONE (13:49)
[2020-01-23] MEDS: VERAPAMIL SYRINGE (5 MG/10 ML) INTRAARTER ONE ×2 (13:51→13:59)
[2020-01-23] MEDS ORDERED: HEPARIN SODIUM 1,000 UN/ML (10ML VL) IV ONE (13:51)
[2020-01-23] MEDS ORDERED: IOPAMIDOL-370 100ML BTL INJ ONE (14:00)
[2020-01-23] MEDS ORDERED: SODIUM CHLORIDE 0.9% 1,000 ML IV SCH (14:15)
--- NOTE | 2020-01-23 17:27 | CC ---
CARDIAC CATHETERIZATION REPORT DATE OF SERVICE: 01/23/2020 PROCEDURE: Left heart catheterization and coronary angiography. PERFORMED BY: Dr. Lesa Jim. Moderate conscious sedation time was 17 minutes. The patient was administered Versed and fentanyl. Oxygen saturation, hemodynamics and EKG were monitored closely. CLINICAL INFORMATION: Mrs. Kristy Pardo is a 50-year-old lady with a history of hypertension, hyperlipidemia, morbid obesity, who has had recurrent hospitalization with chest pain, had a negative dobutamine stress test and a CTA angio of the chest that was unremarkable. She continues to have discomfort in the chest with a sensation of heavy pressure and responded to nitroglycerin. After due discussion, even though stress test was negative, she was advised cardiac catheterization. Risks, benefits, options and rationale were explained to the patient and her sister. PROCEDURE NOTE: Under local anesthesia and strict aseptic precautions, a 6-Angolan introducer was placed in the right radial artery. Using a JL3.5 and a JR4 catheter, I performed coronary angiography, and the same right catheter was used to check LV pressures. LV gram was not performed. The sheath was taken out and TR band applied as per protocol, which was a large TR band. Saturation in the fingers was more than 93%. Patient tolerated the procedure well without complications. Results were discussed with the patient and her friend. She has no significant obstructive CAD. CARDIAC CATHETERIZATION FINDINGS: The left ventricular end-diastolic pressure was about 12 mmHg. No gradient across the aortic valve. RIGHT CORONARY ARTERY: Dominant vessel. No significant disease. Distally bifurcates into PDA and PLV, both of which supply a fair amount of myocardium. LEFT MAIN CORONARY ARTERY: This is a very short, patent, disease-free vessel that immediately bifurcates into LAD and circumflex. LEFT ANTERIOR DESCENDING CORONARY ARTERY: Good-caliber vessel extends along the anterior wall, gives off septal and diagonal branches. Diagonal branch bifurcates into two branches after it comes off from the LAD. Septals are free of significant disease. LAD is a good-distribution vessel, curves over the apex to supply the inferoapical portion of left ventricle. No significant disease in the LAD system, which gives off at least two good-sized diagonal branches. LEFT POSTERIOR CIRCUMFLEX CORONARY ARTERY: Nondominant vessel. Single large obtuse marginal, tortuous. No significant disease noted in the circumflex system. Left ventriculogram was not performed. FINAL IMPRESSION: This patient has a right-dominant system, normal filling pressures, no gradient across aortic valve and no significant obstructive coronary artery disease. RECOMMENDATIONS: Findings were discussed with the patient and friend. Continued medical therapy with risk factor modification advised. No intervention will be necessary. The patient's chest pain seems to be noncardiac in etiology since she had a CT scan and a negative stress test as well. She will be discharged later on today if she remains stable. MMODL / IJN: [id number] /
[2020-01-23 20:18] VITALS: BP 133/76; PULSE 77
== END 2020-01-23 18:45 | disposition home or self-care (01) ==
LOC: CATHCVL 12:40
PROVIDERS: ATTEND Internal Medicine Interventional Cardiology
DX: I20.0 Unstable angina (principal); I10 Essential (primary) hypertension; E78.00 Pure hypercholesterolemia, unspecified; E78.5 Hyperlipidemia, unspecified; E66.01 Morbid (severe) obesity due to excess calories; Z79.82 Long term (current) use of aspirin; Z79.899 Other long term (current) drug therapy; Z88.5 Allergy status to narcotic agent; Z88.0 Allergy status to penicillin; Z88.2 Allergy status to sulfonamides; Z68.42 Body mass index [BMI] 45.0-49.9, adult; Z72.0 Tobacco use
CPT/HCPCS: 93458; 81025; C1769; C1894; J2250; J2001; J3010; J1644; Q9967

== ENCOUNTER → 2020-02-13 | Outpatient (CLI) | payer BC ==
--- NOTE | 2020-02-13 09:25 | US ---
EXAMINATION TYPE: US gallbladder DATE OF EXAM: 02/13/2020 COMPARISON: CT 2019 CLINICAL HISTORY: R10.13 epigastric pain. Chest pain x couple months EXAM MEASUREMENTS: Liver Length: 18.2 cm Gallbladder Wall: 0.2 cm CBD: 0.4 cm Right Kidney: 9.8 x 4.8 x 4.7 cm Difficult and limited study due to patient body habitus Pancreas: visualized portions wnl, limited by overlying midline bowel gas Liver: enlarged, attenuating, mildly heterogeneous Gallbladder: limited visualization, appears wnl as seen Evidence for sonographic Holley's sign: yes CBD: visualized portions wnl, limited by overlying bowel gas Right Kidney: 0.6cm echogenic focus mid/inferior pole Visualized pancreas is slightly heterogeneous without mass or ductal dilatation. Visualized liver is heterogeneously hyperechoic correlating with diffuse fatty infiltration on CT. No suspicious masses o r ductal dilatation seen on images saved. Images of right kidney show no hydronephrosis. Small nonobs tructing renal calculi redemonstrated. Gallbladder is contracted without obvious shadowing mobile sto ne, or surrounding fluid, or suspicious wall thickening. IMPRESSION: Suboptimal study due to contracted gallbladder. No obvious gallstone or ultrasound eviden ce for acute cholecystitis. Diffuse fatty infiltration of liver and nonobstructing right renal calcul i redemonstrated.
== END | disposition home or self-care (01) ==
LOC: RADUSWWP 07:32
PROVIDERS: ATTEND Internal Medicine
DX: K82.0 Obstruction of gallbladder (principal)
CPT/HCPCS: 76705

== ENCOUNTER → 2020-02-18 | Outpatient (CLI) | payer BC | END | disposition home or self-care (01) | LOC: LABWHC1 10:43 | PROVIDERS: ATTEND Internal Medicine | DX: Z11.59 Encounter for screening for other viral diseases (principal) ==

== ENCOUNTER → 2020-02-18 | Outpatient (CLI) | payer BC ==
--- NOTE | 2020-02-18 11:43 | XR ---
EXAMINATION TYPE: XR chest 2V DATE OF EXAM: 02/18/2020 COMPARISON: 01/01/2020 HISTORY: 50-year-old female with shortness of breath, dyspnea TECHNIQUE: Frontal and lateral views FINDINGS: Heart normal size. Aorta and pulmonary vasculature within normal limits. Hazy lower lung densities re lated to overlying soft tissue. No consolidation or pleural effusion. IMPRESSION: No acute cardiopulmonary process.
== END | disposition home or self-care (01) ==
LOC: RADXRMAIN 11:24
PROVIDERS: ATTEND Internal Medicine
DX: R06.00 Dyspnea, unspecified (principal)
CPT/HCPCS: 71046

== ENCOUNTER → 2020-02-19 | Day surgery (SDC) | payer BC ==
[2020-02-18 08:54] VITALS: BMI 45.4
[~2020-02-19] MED LIST changes: -ALPRAZolam 0.25 MG TAB PO PRN; -ALPRAZolam 0.5 MG TAB PO PRN; -ASPIRIN 325 MG TAB PO STA; -ATORVASTATIN 80 MG TAB PO STA; +LACTATED RINGERS 1,000 ML IV SCH; +LIDOCAINE 1% (10MG/ML) FOR IV START INTRADERMA PRN; +LIDOCAINE 1% INJ 10MG/ML (20 ML MDV) ONE; -NITROGLYCERIN SL TABS 0.4 MG TAB SUBLINGUAL PRN; +PROPOFOL 10 MG/ML 20 ML VIAL IV ONE; -SODIUM CHLORIDE 0.9% 1,000 ML in EMPTY BAG 1 BAG IV ONE
[2020-02-19 08:04] VITALS: RESP 16; TEMP 96.2
--- NOTE | 2020-02-19 08:57 | P.PCN ---
Date of Procedure: 02/19/20 Description of Procedure: BRIEF HISTORY: Patient is a 50-year-old female with a known history of GERD and hiatal hernia presents to the hospital for outpatient evaluation of epigastric abdominal pain. Patient reports intermittent pain in the epigastric region and chest. She has a known history of reflux on omeprazole therapy. She has also had EGD in the remote past with findings of a hiatal hernia. PROCEDURE PERFORMED: Esophagogastroduodenoscopy with biopsy. PREOPERATIVE DIAGNOSIS: Epigastric abdominal pain, GERD. ESTIMATED BLOOD LOSS: Minimal. IV sedation per anesthesia. PROCEDURE: After informed consent was obtained, the patient was brought into the endoscopy unit. IV sedation was administered by Anesthesia under continuous monitoring. Initially the Olympus GIF-190 video endoscope was inserted into the mouth. Esophagus intubated without any difficulty. It was gradually advanced into the stomach and duodenum and carefully examined. The bulb and the second part of the duodenum appeared normal, with biopsies taken to rule out celiac sprue. The scope at this time was withdrawn to the stomach, adequately insufflated with air, and upon careful examination, mucosa of the antrum, body, cardia and the fundus appeared normal, except for some mild scattered erythema in the antrum and body suggestive of mild gastritis with biopsies of the antrum and body taken. A few diminutive polyps in the body of the stomach were also noted and biopsied, likely fundic gland polyps in the setting of PPI therapy. The scope was then withdrawn into the esophagus. The GE junction was located at 36 cm from the incisors, with a 2 cm hiatal hernia noted. The esophagus appeared normal. There were no erosions or ulcerations seen and the patient tolerated the procedure well. IMPRESSION: 1. Mild gastritis antrum and body, biopsied. 2. Duodenal biopsies. 3. Small hiatal hernia. 4. A few diminutive polyps, likely representing fundic gland polyps biopsied. 5. No masses, ulceration, or other abnormalities to explain epigastric abdominal pain. RECOMMENDATIONS: The findings of this examination were discussed with the patient. Okay to resume diet. Continue medications. Await pathology from biopsies. Continue current PPI therapy.
[2020-02-19 09:26] VITALS: BP 111/83; PULSE 88
== END ==
LOC: ORWHC2ENDO 07:41
PROVIDERS: ATTEND Internal Medicine
DX: K31.7 Polyp of stomach and duodenum (principal); K29.50 Unspecified chronic gastritis without bleeding; K44.9 Diaphragmatic hernia without obstruction or gangrene; K21.9 Gastro-esophageal reflux disease without esophagitis; I10 Essential (primary) hypertension; Z80.0 Family history of malignant neoplasm of digestive organs; Z72.0 Tobacco use; Z79.899 Other long term (current) drug therapy; Z98.890 Other specified postprocedural states; I25.10 Atherosclerotic heart disease of native coronary artery without angina pectoris; Z86.718 Personal history of other venous thrombosis and embolism; Z86.711 Personal history of pulmonary embolism; Z88.4 Allergy status to anesthetic agent; Z88.1 Allergy status to other antibiotic agents; Z88.5 Allergy status to narcotic agent; Z88.0 Allergy status to penicillin; Z88.2 Allergy status to sulfonamides
CPT/HCPCS: 81025; 88305; 43239; J2001; J2704

== ENCOUNTER → 2020-04-25 | Outpatient (CLI) | payer BC ==
[2020-04-25 14:34] LABS: Basophils # (A) 0.1 k/uL (0-0.2); Basophils % (A) 1 %; Eosinophils # (A) 0.5 k/uL (0-0.7); Eosinophils % (A) 4 %; HCT 40.2 % (34.0-46.0); HGB 12.2 gm/dL (11.4-16.0); Hypochromasia Moderate; Lymphocytes # (A) 3.2 k/uL (1.0-4.8); Lymphocytes % (A) 26 %; MCHC 30.5 g/dL (31.0-37.0); MCV 81.9 fL (80.0-100.0); Monocytes # (A) 0.8 k/uL (0-1.0); Monocytes % (A) 6 %; Neutrophils # (A) 7.6 k/uL (1.3-7.7); Neutrophils % (A) 61 %; Platelet Count 374 k/uL (150-450); RBC 4.91 m/uL (3.80-5.40); RDW 15.4 % (11.5-15.5); WBC 12.4 k/uL (3.8-10.6)
[2020-04-25 14:57] LABS: Potassium 4.8 mmol/L (3.5-5.1)
== END | disposition home or self-care (01) ==
LOC: LABPAT 13:54
PROVIDERS: ATTEND Orthopaedic Surgery
DX: Z01.818 Encounter for other preprocedural examination (principal); M23.91 Unspecified internal derangement of right knee
CPT/HCPCS: 80051; 85025

== ENCOUNTER 2020-05-07 09:10 | Day surgery (SDC) | payer BC ==
[2020-05-06 08:45] VITALS: BMI 45.4
--- NOTE | 2020-05-06 18:32 | HP ---
HISTORY AND PHYSICAL DATE OF SURGERY: 05/07/2020 Kristy Pardo is a 50-year-old patient seen with progressive right knee pain. We discussed options for treatment. She elected to proceed with arthroscopy. Consent was obtained. PAST MEDICAL HISTORY: Hypertension, gastroesophageal reflux disease. PAST SURGICAL HISTORY: Noncontributory. DAILY MEDICATIONS: Prilosec, Lexapro, lisinopril, Xanax. ALLERGIES: PENICILLIN, SULFA. SOCIAL HISTORY: She smokes one pack of cigarettes daily. PHYSICAL EVALUATION OF RIGHT KNEE: Range of motion 0 to 125. Mild effusion. Tenderness medial joint line. Positive medial Balbir's. Ligaments stable. Hip rotation without pain. Distal neurovascular exam is intact. RADIOGRAPHS: Right knee radiographs reveal moderate osteoarthritis. MRI right knee revealed moderate osteoarthritis. IMPRESSION: 1. Internal derangement of right knee with meniscal tear versus osteochondral tear. 2. Right knee osteoarthritis. 3. Hypertension. 4. Tobacco use. PLAN: Right knee arthroscopy with chondroplasty, possible partial meniscectomy, partial synovectomy and debridement. MMODL / IJN: [id number] /
[~2020-05-07 09:10] MED LIST changes: +HYDROmorphone 0.5 MG/0.5 ML SYRINGE IVP PRN; -LIDOCAINE 1% (10MG/ML) FOR IV START INTRADERMA PRN; -LIDOCAINE 1% INJ 10MG/ML (20 ML MDV) ONE; -PROPOFOL 10 MG/ML 20 ML VIAL IV ONE; +ceFAZolin 3 GM in SODIUM CHLORIDE 0.9% 100 ML IVPB ONE
[2020-05-07 09:50] VITALS: TEMP 97.7
[2020-05-07] MEDS ORDERED: LIDOCAINE 1% (10MG/ML) FOR IV START INTRADERMA ONE (09:50)
[2020-05-07] MEDS ORDERED: ONDANSETRON 4 MG/2 ML VIAL ONE (09:51)
[2020-05-07] MEDS ORDERED: DEXAMETHASONE SOD PHOSPHATE 10 MG/ML 1 ML VIAL IV ONE (09:53)
[2020-05-07] MEDS ORDERED: PROPOFOL 10 MG/ML 20 ML VIAL IV ONE (10:44)
[2020-05-07] MEDS ORDERED: MIDAZOLAM 2 MG/2 ML VIAL ONE (10:44)
[2020-05-07] MEDS ORDERED: LIDOCAINE 1% INJ 10MG/ML (20 ML MDV) ONE (10:44)
[2020-05-07] MEDS ORDERED: fentaNYL (PF) 50 MCG/ML 2 ML AMP ONE (10:44)
[2020-05-07] MEDS ORDERED: SUCCINYLCHOLINE CHLORIDE 100 MG/5 ML SYR IV ONE (10:44)
[2020-05-07] MEDS ORDERED: BUPIVACAINE (PF) 0.25% 30 ML VIAL SQ ONE (11:16)
--- NOTE | 2020-05-07 11:31 | P.OP ---
Date of Procedure: 05/07/20 Preoperative Diagnosis: Internal derangement right knee Postoperative Diagnosis: 1. Tear medial meniscus right knee 2. Grade 2/3 chondromalacia medial femoral condyle right knee 3. Grade 2 chondromalacia patella right knee 4. Reactive synovitis medial, lateral and suprapatellar compartments right knee Procedure(s) Performed: 1. Arthroscopic partial medial meniscectomy right knee 2. Arthroscopic chondroplasty medial femoral condyle right knee 3. Arthroscopic chondroplasty patella right knee 4. Arthroscopic partial synovectomy medial, lateral and suprapatellar compartments right knee Anesthesia: CIARAA, local Surgeon: Kyle Marie Estimated Blood Loss (ml): 6 Pathology: none sent Condition: stable Disposition: PACU Indications for Procedure: 50-year-old patient seen with progressive right knee pain. After having treatment options discussed, she elected to proceed with arthroscopy. Operative Findings: See description of procedure Description of Procedure: Patient was taken to the operative suite. Patient underwent a general anesthetic by the department of anesthesia. Patient was given preoperative antibiotics. The right lower extremity was placed in a well-padded arthroscopic leg navarro. The right leg was prepped and draped in the normal sterile orthopedic fashion. A lateral parapatellar and suprapatellar incision was made. Trochars were inserted. Arthroscopy was initiated. Suprapatellar pouch revealed diffuse thick reactive synovitis. The patellofemoral joint appeared to articulate congruently. There was grade 2 chondromalacia of the patella with some diffuse osteochondral tears present. The scope was guided into the medial gutter. No loose bodies or plica were identified. The scope was then guided into the medial compartment. A medial parapatellar incision was made. Trocar inserted followed by probe. There was a radial tear posterior horn medial meniscus. There were grade 2/3 chondromalacia changes of the medial femoral condyle with some osteochondral flap tears present. There were grade 2/3 chondromalacia changes of the tibial plateau. There was thick reactive synovitis anteriorly. I performed a partial medial meniscectomy. I performed a chondroplasty of the medial femoral condyle. I performed a partial synovectomy. The residual meniscus was stable. The residual osteochondral surface was stable. There was good decompression of the synovitis. Scope and probe were then guided into the intercondylar notch. Cruciates were identified, probed and found to be stable. The scope and probe were then guided into lateral compartment. The lateral meniscus was probed and found to be stable. There were mild grade 1 chondromalacia changes lateral compartment. There were no osteochondral tears present. There was thick reactive synovitis anteriorly. I introduced a motorized shaver and performed a partial synovectomy decompressing thick reactive synovitis. There was good decompression of the synovitis. The scope was in guided back into the suprapatellar compartment. I introduced a motorized shaver into the super patellar compartment. I debrided some piecemeal fragments of meniscus I encountered. I performed a chondroplasty of the patella getting down to stable osteochondral tissue. I performed a partial synovectomy decompressing thick reactive synovitis. The shaver was removed. There appeared be good stability about the residual osteochondral surface of the patella. There was good decompression of synovitis. I took one more look on the entire knee no residual debris. Instruments were now removed from the joint. The joint was infiltrated with .25% Marcaine. Steri-Strips were applied to the portal sites. Sterile dressings were applied. The patient was placed into a LILIA hose. No tourniquet was utilized. The patient was awakened, transferred to a bed and taken to recovery stable satisfactory condition.
[2020-05-07] MEDS ORDERED: MEPERIDINE 50 MG/ML SYRINGE IVP ONE ×2 (11:43→11:50)
[2020-05-07] MEDS ORDERED: diphenhydrAMINE 50 MG/ML 1 ML VIAL IVP ONE ×2 (12:02→12:07)
[2020-05-07 12:23] VITALS: RESP 16
[2020-05-07] MEDS ORDERED: HYDROcodone/APAP 5-325MG 1 EACH TAB ONE (12:39)
[2020-05-07] MEDS ORDERED: HYDROcodone/APAP 5-325MG 1 EACH TAB PO ONE (12:40)
[2020-05-07 12:57] VITALS: BP 107/76; PULSE 80
== END 2020-05-07 13:53 | disposition home or self-care (01) ==
LOC: OR 09:10
PROVIDERS: ATTEND Orthopaedic Surgery
DX: M23.221 Derangement of posterior horn of medial meniscus due to old tear or injury, right knee (principal); M94.261 Chondromalacia, right knee; M22.41 Chondromalacia patellae, right knee; M65.861 Other synovitis and tenosynovitis, right lower leg; M17.11 Unilateral primary osteoarthritis, right knee; I10 Essential (primary) hypertension; K21.9 Gastro-esophageal reflux disease without esophagitis; M79.7 Fibromyalgia; F17.210 Nicotine dependence, cigarettes, uncomplicated; Z88.0 Allergy status to penicillin; Z88.2 Allergy status to sulfonamides; Z88.5 Allergy status to narcotic agent; Z88.1 Allergy status to other antibiotic agents; Z86.711 Personal history of pulmonary embolism; Z86.718 Personal history of other venous thrombosis and embolism; Z79.899 Other long term (current) drug therapy; Z79.891 Long term (current) use of opiate analgesic
CPT/HCPCS: 81025; 29881; J2250; J1200; J1100; J2175; J0690; J2405; J2001; J3010; J0330; J2704

== ENCOUNTER → 2020-11-26 | Outpatient (CLI) | payer BC ==
--- NOTE | 2020-11-27 04:20 | MR ---
EXAMINATION TYPE: MR cervical spine wo con DATE OF EXAM: 11/26/2020 COMPARISON: 07/05/2017 HISTORY: Neck and head pain since 1999, headaches, nausea, dizziness, and pass out when laughing. Multiplanar multiecho imaging of the cervical spine was performed without contrast. The cervical vertebra have normal alignment. There is no significant disc space narrowing. Cervical s gabby cord shows fairly normal signal pattern. There is no evidence of a mass. The brainstem is intac t. There is small posterior disc bulging at C5-6 and C6-7. There is developmentally adequate spinal c anal. There is no spinal stenosis. There is no evidence for fracture. I see no focal bone destruction . IMPRESSION: Posterior mild disc bulging in the lower cervical spine appears slightly increased compared to old ex am. No spinal stenosis.
== END | disposition home or self-care (01) ==
LOC: RADMRIMAIN 19:30
PROVIDERS: ATTEND Internal Medicine
DX: M50.222 Other cervical disc displacement at C5-C6 level (principal)
CPT/HCPCS: 72141

== ENCOUNTER → 2020-12-12 | Outpatient (CLI) | payer BC ==
--- NOTE | 2020-12-12 15:38 | US ---
EXAMINATION TYPE: US carotid duplex BILAT DATE OF EXAM: 12/12/2020 COMPARISON: NONE CLINICAL HISTORY: R42 Dizziness and giddiness. Patient states she passes out after she laughs. HTN c ontrolled with meds. EXAM MEASUREMENTS: RIGHT: Peak Systolic Velocity (PSV) cm/sec ----- Right CCA: 99.6 ----- Right ICA: 81.2 ----- Right ECA: 130.7 ICA/CCA ratio: 0.8 RIGHT: End Diastole cm/sec ----- Right CCA: 34.7 ----- Right ICA: 39.5 ----- Right ECA: 20.8 LEFT: Peak Systolic Velocity (PSV) cm/sec ----- Left CCA: 85.4 ----- Left ICA: 102.6 ----- Left ECA: 117.3 ICA/CCA ratio: 1.2 LEFT: End Diastole cm/sec ----- Left CCA: 28.6 ----- Left ICA: 29.9 ----- Left ECA: 22.0 VERTEBRALS (direction of flow): Right Vertebral: Antegrade Left Vertebral: Antegrade Rhythm: Normal Bilateral wall thickening. No plaque. Slightly elevated right ECA and right proximal CCA. IMPRESSION: 1. Bilateral wall thickening. No significant hemodynamic stenosis. Criteria for Assigning % of Stenosis / Diameter reduction (Estimation based on the indirect measurements of the internal carotid artery velocities (ICA PSV). 1. Normal (no stenosis)=ICA PSV < 125 cm/s: ratio < 2.0: ICA EDV<40 cm/s. 2. Less than 50% stenosis=ICA PSV < 125 cm/s: ratio < 2.0: ICA EDV<40 cm/s. 3. 50 to 69% stenosis=ICA PSV of 125 to 230 cm/s: ration 2.0 ? 4.0: ICA EDV 40-100 cm/s. 4. Greater than 70% stenosis to near occlusion= ICA PSV > 230 cm/s: ratio > 4.0: ICA EDV > 100 cm/s. 5. Near occlusion= ICA PSV velocities may be low or undetectable: variable ratio and ICA EDV. 6. Total occlusion=unable to detect flow.
== END | disposition home or self-care (01) ==
LOC: RADUSWWP 14:47
PROVIDERS: ATTEND Internal Medicine
DX: I10 Essential (primary) hypertension (principal)
CPT/HCPCS: 93880

== ENCOUNTER → 2021-01-12 | Outpatient (CLI) | payer BC ==
[2021-01-12 14:34] VITALS: BP 146/89; PULSE 98; RESP 18; TEMP 98.1
--- NOTE | 2021-01-12 14:44 | P.PAINCN ---
History of Present Illness - Reason for Consult Consult date: 01/12/21 - History of Present Illness Mrs. Pardo is a 50-year-old female who presents today with a chief complaint of neck pain associated with headaches. The pain is mostly over the left side of the neck and head. She reports pain in the back of the head along the occiput which radiates to the top of the head. She also describes an area of pain which is pinpoint in nature in the left side of her face area just as frontal headache and left side. She is never any treatment for this in the past. She currently uses Imitrex which helps with the frontal headache but not with the rest of the headaches. She never had a neck surgery. She had an MRI which is detailed later on in this note. She denies any upper extremity numbness tingling weakness. Denies any motion or numbness tingling or weakness. She does not use any pain medication for this. Review of Systems: Denies any New chest pain, short of breath, Nausea/vomitting, abdominal pain, bowel or bladder incontinence, or any overt new neurologic symptoms in the upper or lower extremities outside of what is noted in the HPI. Past Medical History Past Medical History: Deep Vein Thrombosis (DVT), Hypertension, Pulmonary Em bolus (PE) Additional Past Medical History / Comment(s): currently not on any blood thinners History of Any Multi-Drug Resistant Organisms: None Reported Past Surgical History: Appendectomy Additional Past Surgical History / Comment(s): lithotripsy Past Anesthesia/Blood Transfusion Reactions: Previous Problems w/ Anesthesia Additional Past Anesthesia/Blood Transfusion Reaction / Comm: patient states she had a hard time waking up Past Alcohol Use History: Occasional - Past Family History Mother Family Medical History: Myocardial Infarction ([place]) Father Family Medical History: Cancer Additional Family Medical History / Comment(s): Possible liver cancer, . Medications and Allergies Home Medications Medication Instructions Recorded Confirmed Type Omeprazole 20 mg PO BID 07/11/17 05/07/20 History Losartan/Hydrochlorothiazide 1 tab PO HS 09/01/19 05/07/20 History [Losartan-Hctz 100-25 mg Tab] SUMAtriptan succinate [Sumatriptan 100 mg PO DAILY PRN 09/01/19 05/07/20 History Succinate] Escitalopram Oxalate [Lexapro] 20 mg PO QAM 12/20/19 05/07/20 History Furosemide [Lasix] 20 mg PO HS 02/18/20 05/07/20 History Dextroamphetamine/Amphetamine 20 mg PO BID 05/06/20 05/07/20 History [Adderall] traMADol HCL 50 mg PO DIRECTED PRN 05/06/20 05/07/20 History Hydrocodone/Acetaminophen [Hamilton 1 each PO Q6HR PRN #15 tab 05/07/20 Rx 5-325] Allergies Allergy/AdvReac Type Severity Reaction Status Date / Time codeine AdvReac Confusion Verified 05/07/20 09:44 levofloxacin [From Levaquin] AdvReac Confusion Verified 05/07/20 09:44 Penicillins AdvReac Rash/Hives Verified 05/07/20 09:44 Sulfa (Sulfonamide AdvReac Rash/Hives Verified 05/07/20 09:44 Antibiotics) Physical Exam PHYSICAL EXAM: Constitutional: Awake and alert no distress Cardiovascular exam: Regular rate, no lower extremity edema, palpable pulses bilaterally Respiratory exam: No audible wheezing, no accessory muscle usage Muscular skeletal exam: - Cervical spine: Nontender palpation bilaterally, no masses palpated. Mild tenderness over the left paraspinal muscles and over the occiput on the left. Range of motion is limited in all planes secondary to pain. Spurling's is negative. Facet loading is positive on the left. Neuro exam: Normal sensation bilateral upper and lower extremities. Deep tendon reflexes are 2+ bilaterally. Dowell's is negative Psychiatric exam: Cooperative, good insight Results Results: MRI of the cervical spine shows a normal-appearing spine with mild disc bulging at C5 6 and C6 7 without any significant neural foraminal stenosis or central stenosis. Cervical spine Alignment is normal. Assessment and Plan Assessment: #1 cervical spondylosis without myelopathy #2 cervicogenic headaches #3 possible occipital neuralgia Plan: After review the records and examination the patient, I explained that I believe she has a few things going on. One as she has migraines likely contributed to his left frontal headache which is unlikely to be related to cervical spine pathology. Also plan she likely has cervical spondylosis along the C2 3 and third occipital nerve which are causing her posterior headaches. She may also have occipital neuralgia. Would like to move forward with a diagnostic C2 3 and third occipital nerve injection first to rule out if this is the cause of her headaches. I explained to her that she will likely have some headaches despite any intervention that the goal is to try to improve the pain is much as possible. No medications were dispensed today. I have spent 34 minutes on patient care today. The time was used to review the medical records including relevant urine studies and Prescription history (MAPs), review of the available imaging, evaluation and examination of the patient, coordination of care with the medical staff and if applicable referring physicians, as well as creation of the medical record. PQRS Measure Charge Sheet PQRS Narrative: Smoking Status Current every day smoker Home Medications: Ambulatory Orders Omeprazole 20 mg PO BID 07/11/17 Losartan/Hydrochlorothiazide [Losartan-Hctz 100-25 mg Tab] 1 tab PO HS 09/01/19 SUMAtriptan succinate [Sumatriptan Succinate] 100 mg PO DAILY PRN 09/01/19 Escitalopram Oxalate [Lexapro] 20 mg PO QAM 12/20/19 Furosemide [Lasix] 20 mg PO HS 02/18/20 Dextroamphetamine/Amphetamine [Adderall] 20 mg PO BID 05/06/20 traMADol HCL 50 mg PO DIRECTED PRN 05/06/20 Hydrocodone/Acetaminophen [Hamilton 5-325] 1 each PO Q6HR PRN #15 tab 05/07/20
== END ==
LOC: PNWHC3 14:00
PROVIDERS: ATTEND Hospitalist
DX: M47.812 Spondylosis without myelopathy or radiculopathy, cervical region (principal); G44.89 Other headache syndrome; F17.200 Nicotine dependence, unspecified, uncomplicated; I10 Essential (primary) hypertension
CPT/HCPCS: 99211

== ENCOUNTER → 2021-03-13 | Outpatient (CLI) | payer BC ==
--- NOTE | 2021-03-18 11:46 | MM ---
Reason for exam: screening (asymptomatic). Last mammogram was performed 8 years and 9 months ago. History: Patient is nulliparous. Taking hormonal contraceptives for 17 years 6 months. Physical Findings: A clinical breast exam by your physician is recommended on an annual basis and results should be correlated with mammographic findings. MG Screening Mammo w CAD Bilateral CC and MLO view(s) were taken. Prior study comparison: June 02, 2012, bilateral digital screening mammo w/CAD. December 12, 2007, bilateral digital screening mammogram. Bilateral breast larger than prior, gained 80 pounds weight. ASSESSMENT: Benign, BI-RAD 2 RECOMMENDATION: Routine screening mammogram of both breasts in 1 year.
== END | disposition home or self-care (01) ==
LOC: RADMAMWWP 16:16
PROVIDERS: ATTEND Internal Medicine
DX: Z12.31 Encounter for screening mammogram for malignant neoplasm of breast (principal)
CPT/HCPCS: 77067

== ENCOUNTER 2021-03-27 12:35 | Day surgery (SDC) | payer BC ==
[2021-03-26 12:43] VITALS: BMI 46.0
[2021-03-27] MEDS ORDERED: LIDOCAINE 1% (10MG/ML) FOR IV START INTRADERMA ONE (13:05)
[2021-03-27] MEDS ORDERED: LACTATED RINGERS 1,000 ML IV ONE (13:06)
[2021-03-27] MEDS ORDERED: IV FLUID CONTINUATION 1,000 ML IV ONE ×2 (13:06→13:43)
[2021-03-27 13:07] LABS: Glucose,Whole Blood 116 mg/dL (75-99)
[2021-03-27 13:08] VITALS: TEMP 96.9
[2021-03-27] MEDS ORDERED: MIDAZOLAM 2 MG/2 ML VIAL ONE (13:09)
[2021-03-27] MEDS ORDERED: fentaNYL (PF) 50 MCG/ML 2 ML AMP ONE (13:09)
[2021-03-27] MEDS ORDERED: DEXAMETHASONE SOD PHOSPHATE 10 MG/ML 1 ML VIAL ONE (13:09)
[2021-03-27] MEDS ORDERED: ROPIVACAINE 5MG/ML 20ML VIAL ONE (13:09)
[2021-03-27] MEDS ORDERED: IOPAMIDOL M200 10 ML VIAL ONE (13:09)
--- NOTE | 2021-03-27 13:23 | P.PCN ---
Date of Procedure: 03/27/21 Description of Procedure: PREOPERATIVE DIAGNOSIS : Cervicalgia with Facet Arthropathy without myelopathy POSTOPERATIVE DIAGNOSIS: same PROCEDURE: first Diagnostic cervical medial branch block with fluoroscopy at TON, C3 left which covers facets C2-C3 ANESTHESIA: Local anesthetic; moderate IV sedation with anesthesia team Fluoroscopy was used for the procedure and images were saved in the radiology portion of the chart. Surgeon: Omer Ruiz MD PROCEDURE INDICATION: Cervical pain without radiculopathy, not responsive to conservative management. PROCEDURE DESCRIPTION: the patient was seen and identified in the preop holding area , risks and benefits and possible complications of the procedure and alternatives were discussed with the patient, and the patient agreed to proceed with the procedure and signed the consent . IV was started , vital signs were monitored during the procedure and fluoroscopy was used to maximize the benefit and accuracy of the needle placement, and sedation was given to decrease patient anxiety. Patient was taken to the procedure room and placed in prone position. An AP fluoroscopic senior wind turbine technician film was taken to identify the dens, the C2, C3 vertebral bodies, and the waists of the articular pillars at the aforementioned levels. A lateral view was utilized to highlight the waists of the articular pillars at these levels. The skin was prepped with chlorhexidine and draped in the usual sterile fashion. The skin and subcutaneous tissue overlying the above levels were anesthetized using a 25-gauge 1-1/2-inch needle with 1% preservative free lidocaine for a total volume of 1 ml per level. An AP fluoroscopic senior wind turbine technician film was taken to identify the dens, the C2 C3 vertebral bodies, and the center of the centroid at the aforementioned levels. A lateral view was utilized to highlight the centroids at these levels. The skin was prepped with chlorhexidine and draped in the usual sterile fashion. The skin and subcutaneous tissue overlying the above levels were anesthetized using a 25- gauge 1-1/2-inch needle with 1% preservative free lidocaine for a total volume of 1 ml per level. An 25-gauge 2" Quinke needle was advanced, coaxially, in the lateral view until the needle tip was noted to slide into the center of the centroid. The needles were advanced until bony contact was felt and the tip of the Quinke needle was confirmed to be in the center of the articular pillars at the aforementioned levels. The needle positions were confirmed with AP and lateral fluoroscopic views. 0.2 mL of Isovue 200 per level was injected which revealed no vascular uptake and after negative aspiration, 0.5 mL of ropivacaine along with dexamethasone 10 mg was injected at each level and the needle subsequently removed . Total of 10 mg dexamethasone used. At the end of the procedure and the needles were removed and a bandage applied after the skin was cleaned. The patient was taken to recovery room in stable condition and monitors in the recovery room for 20-30 minutes and discharged home in stable condition after discharge criteria met and patient will follow up in clinic in 2 weeks EBL: Minimal COMPLICATION: None.
[2021-03-27 13:30] VITALS: RESP 16
[2021-03-27 13:41] VITALS: BP 127/88; PULSE 98
--- NOTE | 2021-03-28 10:28 | FL ---
Fluoroscopy HISTORY: Pain 10 seconds fluoroscopy time supplied to the referring clinician. 2 intraoperative C-arm images docum ent the procedure. See dictated report from anesthesia.
== END 2021-03-27 13:56 | disposition home or self-care (01) ==
LOC: ORPAIN 12:35
PROVIDERS: ATTEND Anesthesiology
DX: M54.2 Cervicalgia (principal)
CPT/HCPCS: 64491; 81025; 64490; J2250; J1100; J3010; Q9966; J2795

== ENCOUNTER 2021-07-10 06:50 | Day surgery (SDC) | payer BC ==
[2021-07-09 12:53] VITALS: BMI 45.4
[~2021-07-10 06:50] MED LIST changes: -HYDROmorphone 0.5 MG/0.5 ML SYRINGE IVP PRN; -ceFAZolin 3 GM in SODIUM CHLORIDE 0.9% 100 ML IVPB ONE
[2021-07-10 07:18] LABS: Glucose,Whole Blood 113 mg/dL (75-99)
[2021-07-10 07:19] VITALS: BP 167/89; PULSE 75; RESP 18; TEMP 97.8
[2021-07-10] MEDS ORDERED: LACTATED RINGERS 1,000 ML IV ONE (07:19)
--- NOTE | 2021-07-10 08:35 | P.PN ---
Progress Note - Text Progress Note Date: 07/10/21 This is a 51 years old female with a chronic history of severe neck pain and headache, is diagnosed with cervical spondylosis with cervical facet arthropathy, cervicogenic headache, occipital neuralgia, patient had her symptoms prominently on the left side but she had bilateral symptoms, in March 2021 we have done left side C2 3 and left side third occipital nerve block, she gets excellent relief, of her symptoms, today Holding area a found and that the patient had authorization for bilateral C2-3 block only, totally different what has been done in the last procedure, for this reason,the procedure today will be canceled, and will get insurance authorization to do the left side C2 3 block on the left side third occipital nerve block,
== END 2021-07-10 08:28 | disposition home or self-care (01) ==
LOC: ORPAIN 06:50
PROVIDERS: ATTEND Specialist
DX: M47.812 Spondylosis without myelopathy or radiculopathy, cervical region (principal); M54.81 Occipital neuralgia; Z53.8 Procedure and treatment not carried out for other reasons

== ENCOUNTER 2021-08-28 06:40 | Day surgery (SDC) | payer BC ==
[2021-08-05 15:23] VITALS: BMI 45.4
[2021-08-28 07:19] VITALS: RESP 16; TEMP 97.3
[2021-08-28 07:34] LABS: Glucose,Whole Blood 154 mg/dL (75-99)
[2021-08-28] MEDS ORDERED: LABETALOL SYRINGE 5 MG/ML IVP ONE (07:34)
[2021-08-28] MEDS: LACTATED RINGERS 1,000 ML IV SCH ×2 (07:34→07:41)
[2021-08-28] MEDS ORDERED: MIDAZOLAM 2 MG/2 ML VIAL ONE (07:43)
[2021-08-28] MEDS ORDERED: ROPIVACAINE 5MG/ML 20ML VIAL ONE (07:43)
[2021-08-28] MEDS ORDERED: .fentaNYL (PF) 50 MCG/ML 2 ML AMP ONE (07:43)
[2021-08-28] MEDS ORDERED: TRIAMCINOLONE ACETONIDE 40 MG/ML 1 ML VIAL ONE (07:43)
--- NOTE | 2021-08-28 08:06 | P.PCN ---
Date of Procedure: 08/28/21 Procedure(s) Performed: PREOPERATIVE DIAGNOSIS: 1-Cervical Spondylosis with Facet Arthropathy.without myelopathy 2-cervicogenic headache. 3-occipital neuralgia POSTOPERATIVE DIAGNOSIS: Same preop diagnosis. PROCEDURES:1- Diagnostic , left C2 , C3, medial branch blocks, with fluoroscopic guidance (fluoroscopy images available in radiology department ) 2- Diagnostic left third occipital nerve block under fluoroscopy guidance# 2nd ANESTHESIA: Monitored anesthesia care as per anesthesia department. EBL: Minimal PROCEDURE INDICATION: The patient with neck pain,and headache secondary to cervical arthropathy unresponsive to more conservative treatments. PROCEDURE DESCRIPTION / TECHNIQUE: The patient was seen and identified in the preoperative area. Risks, benefits, complications, and alternatives were discussed with the patient, the patient agreed to proceed with the procedure and signed the consent. IV was started. Vital signs remained stable throughout the procedure. Patient was taken to the OR and time out was completed. The patient was placed in the prone position on the procedure table. A pillow was placed under the patients chest to increase the cervical interlaminar space. The cervical area was prepped and draped in the usual sterile fashion. Critical pause was taken. Vital signs were closely monitored during the procedure. Conscious sedation was used during the procedure to decrease patients anxiety. Using cross-table lateral fluoroscopy, the centroid of the trapezoid of Left C2 ,C3, was identified, marked, and localized with 1% lidocaine 1 ml at each level for skin and Sub Q infiltrations . Subsequently, a 22 G 3 spinal needle was advanced guided by fluoroscopy to the centroid of the trapezoid of Left C2 , C3,. Edcouch tip position was confirmed at the centroid of the trapezoids of Left C2 ,C3 , with anteroposterior fluoroscopy. An to do the left-sided third occipital nerve block and other the 22-gauge 20-type spinal needle placed at the center of the facet joint between the C2 and C3 vertebra on the left side , and after needle placement confirmed with AP and lateral view ,Subsequently, 1,5 ml of preservative-free Ropivacaine 0.5% mixed with Kenalog 40 mg and half ml of the mixture was injected after negative aspiration for blood and CSF. Edcouch was then removed intact. COMPLICATIONS: No acute complications. DISPOSITION / PLANS: The patient was placed in a supine position and transferred to the recovery area in a stable condition for observation and was discharged from the recovery room after meeting discharge criteria. Home discharge instructions given to the patient by the staff. The patient was reexamined prior to discharge. The patient will schedule a follow up in the clinic in 2-4 weeks.
[2021-08-28 08:24] VITALS: BP 113/74; PULSE 87
[2021-08-28] MEDS ORDERED: IV FLUID CONTINUATION 1,000 ML IV ONE (08:24)
--- NOTE | 2021-08-28 08:48 | FL ---
Fluoroscopy INDICATION: Pain FINDINGS: Fluoroscopy time: 9 seconds. Images obtained: 2. IMPRESSIONS: 1. Documentation of fluoroscopy.
== END 2021-08-28 08:45 | disposition home or self-care (01) ==
LOC: ORPAIN 06:40
PROVIDERS: ATTEND Specialist
DX: M47.812 Spondylosis without myelopathy or radiculopathy, cervical region (principal); M54.81 Occipital neuralgia; I10 Essential (primary) hypertension; F17.200 Nicotine dependence, unspecified, uncomplicated; E11.9 Type 2 diabetes mellitus without complications; K21.9 Gastro-esophageal reflux disease without esophagitis; Z79.84 Long term (current) use of oral hypoglycemic drugs; Z79.891 Long term (current) use of opiate analgesic; Z79.899 Other long term (current) drug therapy; Z88.1 Allergy status to other antibiotic agents; Z88.5 Allergy status to narcotic agent; Z88.0 Allergy status to penicillin; Z88.2 Allergy status to sulfonamides
CPT/HCPCS: 64490; J2250; J3301; J3010; J2795

== ENCOUNTER → 2021-09-14 | Outpatient (CLI) | payer BC ==
[2021-09-14 09:54] VITALS: BP 155/91; PULSE 89; RESP 18; TEMP 97.7
--- NOTE | 2021-09-14 18:26 | P.PN ---
Subjective Progress Note Date: 09/14/21 This is a follow-up visit for this 51 years old female with a chronic history of severe neck pain and headache, she stated possible cervicogenic headache, cervical spondylosis with cervical facet arthropathy, and occipital neuralgia, previously we have done left side median branch block at C2, C3, left side third occipital nerve block, x2 , patient reported that she gets excellent pain relief after each block she gets more than 80% improvement of her pain and headache, and the pain relief lasted for a few days, she denies any motor or sensory deficit she denies any fever or night sweats. She denies any change in the bowel movement or urination, patient denies any numbness or tingling sensation in the upper extremities, patient already done physical therapy and she is doing home exercises/stretches exercise, which patient tried pain medication Advil and tramadol and she is already on sumatriptan and she continued to have severe neck pain and headache Objective - Vital Signs Vital signs: Vital Signs Temp 97.7 F 09/14/21 09:43 Pulse 89 09/14/21 09:43 Resp 18 09/14/21 09:43 BP 155/91 09/14/21 09:43 Pulse Ox 100 09/14/21 09:43 Intake & Output 09/13/21 09/14/21 09/14/21 18:59 06:59 18:59 Weight 136.078 kg - Exam Physical Examinations : -Constitutiona : Cooperative , not in acute distress . -HEENT : nech : supple , no Lymphadenopathy , normal thyroid size . : eyes : no ptosis , no icterus, no photophobia . - neurologic : Cranial nerve II to XII intact , no focal neurological deffecit . -psychatric : alert , oriented X 3 , appropriate affect , intact judgment and insight . -Lymphatic : no Lymphadenopathy . - musculoskeltal : Cervical Spine motor stregnth in the deltoid and biceps, normal right side , normal Left side motor stregnth biceps and the wrist extensors normal right side ,normal left side . motor stregnth in the triceps muscle . normal Right side , normal Left side deep tendon reflexes normal at the biceps , normal at Brachioradialis , normal at triceps. cervical facet loading test: Positive left side Spurling test= negative bilaterally Neck distraction test= negative bilaterally Jorge sign= negative bilaterally Severe tenderness over the occipital nerve on the left side Lumber spine moter stegnth lower extremities ,thigh and legs 5/5 Right side , 5/5 Left side Assessment and Plan Plan: Assessment and plan : 1-Cervical Spondylosis with Facet Arthropathy.without myelopathy 2-cervicogenic headache. 3-occipital neuralgia Patient had 80% improvement after the diagnostic medial branch block cervical area on the left side at C2 ,C3 ,and 3rd occipital nerve block Patient to be good candidate to have RFA of the medial branch the levels mentioned above Time with Patient: Less than 30
== END ==
LOC: PNWHC3 09:17
PROVIDERS: ATTEND Specialist
DX: M47.812 Spondylosis without myelopathy or radiculopathy, cervical region (principal); G44.86 Cervicogenic headache; M54.81 Occipital neuralgia; F17.200 Nicotine dependence, unspecified, uncomplicated; Z88.5 Allergy status to narcotic agent; Z88.1 Allergy status to other antibiotic agents; Z88.0 Allergy status to penicillin; Z88.2 Allergy status to sulfonamides
CPT/HCPCS: 99211

== ENCOUNTER 2021-11-06 12:20 | Day surgery (SDC) | payer BC ==
[2021-11-04 14:20] VITALS: BMI 47.0
[2021-11-06 13:01] LABS: Glucose,Whole Blood 107 mg/dL (75-99)
[2021-11-06 13:04] VITALS: TEMP 97.8
[2021-11-06] MEDS ORDERED: LIDOCAINE 1% (10MG/ML) FOR IV START INTRADERMA ONE (13:04)
[2021-11-06] MEDS ORDERED: fentaNYL (PF) 50 MCG/ML 2 ML AMP ONE (13:13)
[2021-11-06] MEDS ORDERED: methylPREDNISolone ACETATE 40 MG/ML 1 ML VIAL ONE (13:13)
[2021-11-06] MEDS ORDERED: MIDAZOLAM 2 MG/2 ML VIAL ONE (13:13)
[2021-11-06] MEDS ORDERED: ROPIVACAINE 5MG/ML 20ML VIAL ONE (13:13)
--- NOTE | 2021-11-06 13:43 | P.PCN ---
Date of Procedure: 11/06/21 Procedure(s) Performed: PREOPERATIVE DIAGNOSIS:1- Cervical spondylosis with Facet Arthropathy without myelopathy. 2-cervicogenic headache. 3-occipital neuralgia POSTOPERATIVE DIAGNOSIS: Same as preop diagnosis. PROCEDURES: Radiofrequency thermocoagulation left C2 ,C3 medial branch with Fluroscopy Guidence(fluoroscopy was available in etiology department ) Radiofrequency thermocoagulation of the left third occipital nerve ANESTHESIA: monitered anesthesia care as per anesthesia department EBL: Minimal PROCEDURE INDICATION: The patient with neck pain and headache secondary to cervi stiven arthropathy , and occipital neuralgia who had more than 50% relief of her pain with previous diagnostic cervical medial branch block. PROCEDURE DESCRIPTION / TECHNIQUE: The patient was seen and identified in the preoperative area. Risks, benefits, complications, and alternatives were discussed with the patient, the patient agreed to proceed with the procedure and signed the consent. IV was started. Vital signs remained stable throughout the procedure. Patient was taken to the OR and time out was completed. The patient was placed in the prone position on the procedure table. A pillow was placed under the patients chest to increase the cervical interlaminar space. The cervical area was prepped and draped in the usual sterile fashion. Critical pause was taken. Vital signs were closely monitored during the procedure. Conscious sedation was used during the procedure to decrease patients anxiety. Using cross-table lateral fluoroscopy, the centroid of the trapezoid of left C2 ,C3, were identified, marked, and localized with 1% lidocaine. Subsequently, a 20 [id number] radiofrequency cannula with a 10-mm active tip was advanced guided by fluoroscopy to the centroid of the trapezoid of C2 ,C3, . Needle tip position was confirmed at the centroid of the trapezoids of C2 , C3 with anteroposterior fluoroscopy. and to do the third occipital nerve RFA , another RFA needle placed at the center of the facet joint performed in the C2 and C3, needle placement confirmed with AP and lateral view, then Each site then underwent sensory testing at 50 Hz and 0 to 1 volt and motor testing at 2 Hz and 0 to 3 volt with local stimulation, but no radicular symptoms down the arm. Thereafter each sites underwent radiofrequency thermocoagulation at 80 degrees celsius for 90 seconds after injecting 0.5 ml of PF Ropivacaine 0.5 %. After thermocoagulation, 1 ml of the block solution containing Depo-Medrol 40 mg and 3 mL of preservative-free normal saline was injected at the left C2 ,C3, and left 3rd occipital nerve levels after negative aspiration of CSF and blood and with no paresthesias. Cannulas were retracted while injecting lidocaine 1% until the needle is out. Skin was cleansed and bandages were applied. COMPLICATIONS: No acute complications. DISPOSITION / PLANS: The patient was placed in a supine position and transferred to the recovery area in a stable condition for observation and was discharged from the recovery room after meeting discharge criteria. Home discharge instructions given to the patient by the staff. The patient was reexamined prior to discharge. The patient will schedule a follow up in the clinic in 2-4 weeks.
[2021-11-06] MEDS ORDERED: IV FLUID CONTINUATION 600 ML IV ONE (13:45)
--- NOTE | 2021-11-06 13:46 | FL ---
Fluoroscopy History: Cerv Rad Freq 10sec fluoro time
[2021-11-06 14:31] VITALS: BP 100/78; PULSE 78; RESP 18
== END 2021-11-06 14:31 | disposition home or self-care (01) ==
LOC: ORPAIN 12:20
PROVIDERS: ATTEND Specialist
DX: M47.812 Spondylosis without myelopathy or radiculopathy, cervical region (principal); M54.81 Occipital neuralgia; G44.86 Cervicogenic headache; I10 Essential (primary) hypertension; F17.200 Nicotine dependence, unspecified, uncomplicated; R73.03 Prediabetes; Z87.442 Personal history of urinary calculi; K21.9 Gastro-esophageal reflux disease without esophagitis; E66.9 Obesity, unspecified; Z68.42 Body mass index [BMI] 45.0-49.9, adult; Z79.891 Long term (current) use of opiate analgesic; Z79.899 Other long term (current) drug therapy; Z88.1 Allergy status to other antibiotic agents; Z88.5 Allergy status to narcotic agent; Z88.0 Allergy status to penicillin; Z88.2 Allergy status to sulfonamides
CPT/HCPCS: 64633; J2250; J1030; J3010; J2795; 64634

== ENCOUNTER → 2021-11-25 | Outpatient (CLI) | payer BC ==
[2021-11-25 10:26] VITALS: PULSE 103; RESP 18; TEMP 98.3
[2021-11-25 10:32] VITALS: BP 140/92
--- NOTE | 2021-11-25 10:32 | P.PN ---
Subjective Progress Note Date: 11/25/21 Principal diagnosis: A 51 yr old female with a history of severe and chronic neck pain secondary to cervical degenerative disc diseases and spondylosis with facet arthropathy presents today for evaluation status post left RFA of the C2-C3 and the third occipital nerve. Patient states she experienced 70% pain relief for the last 3 days. Pain level is currently at 4 out of 10 in intensity, dull, achy in the left aspects of her cervical spine with radiation of stabbing pain with lateral flexion of the cervical spine. Pain is alleviated with medications, injections, increasing activity, physical therapy 2020, daily home stretching, repositioning and rest. He should admits to right-sided neck pain in the upper aspects of her cervical spine with radiation of pain up the scalp and states she wants to consider procedures for that side in the near future. Interventional pain procedures completed include left RFA of the C2-C3 and third O.N. Patient is currently on Imitrex Patient denies any side effects of the medication(s), denies excessive drowsiness or sleepiness, denies suicidal ideation and reports that the current pain medication is helping to control the pain and improve activities of daily living. Patient denies any motor or sensory deficits. Patient denies any fever or night sweats, denies any change in the bowel movements or urination. Physical Examination: -Constitutional: Cooperative. Not in acute distress . -HEENT: Neck is supple. No lymphadenopathy. No thyromegaly. Normal thyroid size. Eyes: No ptosis , no icterus, no photophobia. ENT: No auditory deficits. Normal oropharynx. No Thrush. - Respiratory: Chest clear to auscultations bilaterally. No wheezing. No rhonchi. - Cardiovascular: Regular rate and rhythm. S1 / S2 , no S3 , no S4. - Gastrointestinal: Abdomen soft no tenderness. Bowel sounds positive in all four quadrants. No organomegaly. - Genitourinary: Deferred. - Neurologic: Cranial nerve II to XII intact. No focal neurological deficits. - Psychatric: Alert & oriented x 3. Matching mood & appropriate affect. Judgment and insight intact. - Lymphatic: No Lymphadenopathy. - Musculoskeletal: Cervical spine: Muscle bulk/ tone/ strength in the bilateral upper extremities normal. Facet loading test cervical area positive over bilateral C2-C3 with jump reflex Lumbar spine: Motor bulk/ tone/ strength lower extremities , thigh and legs : 5/5 Deep tendon reflexes : Normal Knee Jerk. Normal Ankle Jerk . Vertebral body tenderness to palpation over Lumbar Facet Loading Test positive Straight Leg Raise: positive at 30 degrees right side/ left side Gaenslen's Test positive Sacral spine : Severe tenderness over the Sacroiliac joint: right side / left side Range of motion: Flexion of the lumbar spine <60 degrees Range of motion: Extension of the lumbar spine <20 degrees Gaenslen's Test positive Abrahan test: positive right side / left side Assessment and plan: Chronic neck pain secondary to cervical degenerative disc disease , spondylosis with facet arthropathy without myelopathy May consider right cervical injections leading up to RFA in the near future if indicated. All patient questions answered MAPS reviewed and it was appropriate. Prescription for diclofenac gel, apply to AA when necessary pain with 1 refill I have spent 31 minutes on patient care today. Dr Moon was available by phone for the evaluation of this patient. The time was used to review the medical records including relevant urine studies and Prescription history (MAPs), review of the available imaging, evaluation and examination of the patient, coordination of care with the medical staff and if applicable referring physicians, as well as creation of the medical record Objective - Vital Signs Vital signs: Vital Signs Temp 98.3 F 11/25/21 10:13 Pulse 103 H 11/25/21 10:13 Resp 18 11/25/21 10:13 BP Pulse Ox 96 11/25/21 10:13 PQRS Measure Charge Sheet - Pain Location Left Neck Non-Pharmacological Interventions: Inactivity, Meditation, Position/Reposition Pharmacological Interventions: Block, PRN Medication PQRS Narrative: Smoking Status Current every day smoker Pain Intensity [Left Neck] 4 Scale Used Numeric (1 - 10) Hx Alcohol Use (MH) Yes: occ Home Medications: Ambulatory Orders Omeprazole 20 mg PO BID 07/11/17 Losartan/Hydrochlorothiazide [Losartan-Hctz 100-25 mg Tab] 1 tab PO HS 09/01/19 SUMAtriptan succinate 100 mg PO DAILY PRN 09/01/19 Escitalopram Oxalate [Lexapro] 20 mg PO HS 12/20/19 traMADol HCL 50 mg PO Q8HR PRN 05/06/20 ALPRAZolam [Xanax] 0.25 mg PO DAILY PRN 01/12/21 Lisdexamfetamine Dimesylate [Vyvanse] 20 mg PO QAM 03/26/21 Pioglitazone [Actos] 30 mg PO DAILY 03/26/21 Diclofenac Sodium Gel [Voltaren Gel] 100 gm TOPICAL QID PRN 30 Days #100 gram 11/25/21
== END ==
LOC: PNWHC3 09:38
PROVIDERS: ATTEND Physician Assistant Medical
DX: M50.30 Other cervical disc degeneration, unspecified cervical region (principal); M47.812 Spondylosis without myelopathy or radiculopathy, cervical region; G89.29 Other chronic pain; F17.200 Nicotine dependence, unspecified, uncomplicated; Z88.1 Allergy status to other antibiotic agents; Z88.5 Allergy status to narcotic agent; Z88.0 Allergy status to penicillin; Z88.2 Allergy status to sulfonamides
CPT/HCPCS: 99211

== ENCOUNTER → 2022-01-20 | Outpatient (CLI) | payer BC ==
[2022-01-20 10:21] VITALS: BP 158/105; PULSE 84; RESP 18; TEMP 97.7
--- NOTE | 2022-01-20 10:36 | P.PN ---
Subjective Progress Note Date: 01/20/22 Principal diagnosis: A 52 yr old female with a history of severe and chronic neck pain secondary to cervical degenerative disc diseases and spondylosis with facet arthropathy and Occipital neuralgia presents today for medication refills. Pain level is currently an 8 out of 10 in intensity, stabbing, squeezing in sensation in the upper aspect of her cervical spine at the base of her head with radiation of pain to her left eye occasionally. Pain is provoked by extension. Pain is alleviated with medications, topicals, injections, DENIES heat, physical therapy last in November 2020, daily home stretching regimen and rest. Interventional pain procedures completed include C2-C3 and third occipital nerve injection Patient is currently on diclofenac gel when necessary Patient denies any side effects of the medication(s), denies excessive drowsiness or sleepiness, denies suicidal ideation and reports that the current pain medication is helping to control the pain and improve activities of daily living. Patient denies any motor or sensory deficits. Patient denies any fever or night sweats, denies any change in the bowel movements or urination. Physical Examination: -Constitutional: Cooperative. Not in acute distress . -HEENT: Neck is supple. No lymphadenopathy. No thyromegaly. Normal thyroid size. BL G.O.N. Eyes: No ptosis , no icterus, no photophobia. ENT: No auditory deficits. Normal oropharynx. No Thrush. - Respiratory: Chest clear to auscultations bilaterally. No wheezing. No rhonchi. - Cardiovascular: Regular rate and rhythm. S1 / S2 , no S3 , no S4. - Gastrointestinal: Abdomen soft no tenderness. Bowel sounds positive in all four quadrants. No organomegaly. - Genitourinary: Deferred. - Neurologic: Cranial nerve II to XII intact. No focal neurological deficits. - Psychatric: Alert & oriented x 3. Matching mood & appropriate affect. Judgment and insight intact. - Lymphatic: No Lymphadenopathy. - Musculoskeletal: Cervical spine: Muscle bulk/ tone/ strength in the bilateral upper extremities normal. Facet loading test cervical area positive. Lumbar spine: Motor bulk/ tone/ strength lower extremities , thigh and legs : 5/5 Deep tendon reflexes : Normal Knee Jerk. Normal Ankle Jerk . Vertebral body tenderness to palpation over Lumbar Facet Loading Test positive Straight Leg Raise: positive at 30 degrees right side/ left side Gaenslen's Test positive Sacral spine : Severe tenderness over the Sacroiliac joint: right side / left side Range of motion: Flexion of the lumbar spine <60 degrees Range of motion: Extension of the lumbar spine <20 degrees Gaenslen's Test positive Abrahan test: positive right side / left side Assessment and plan: Chronic neck pain secondary to cervical degenerative disc disease , spondylosis with facet arthropathy without myelopathy, Occipital Neuralgia Recommendation of physical therapy including cervical traction and decompression 3 times a week x 6 weeks All patient questions answered MAPS reviewed and it was appropriate. Prescription for diclofenac gel, apply as needed, 1 refill I have spent 31 minutes on patient care today. Dr Moon was available by phone for the evaluation of this patient. The time was used to review the medical records including relevant urine studies and Prescription history (MAPs), review of the available imaging, evaluation and examination of the patient, coordination of care with the medical staff and if applicable referring physicians, as well as creation of the medical record Objective - Vital Signs Vital signs: Vital Signs Temp 97.7 F 01/20/22 10:12 Pulse 84 01/20/22 10:12 Resp 18 01/20/22 10:12 BP 158/105 01/20/22 10:12 Pulse Ox 97 01/20/22 10:12 PQRS Measure Charge Sheet Mode of Arrival: Ambulatory - Pain Location Bilateral Upper Neck Non-Pharmacological Interventions: Inactivity, Position/Reposition, Reduce Environmental Stimuli Pharmacological Interventions: Block, PRN Medication, Topical Medication PQRS Narrative: Smoking Status Current every day smoker Blood Pressure 158/105 Pain Intensity [Bilateral 8 Upper Neck] Scale Used Numeric (1 - 10) Hx Alcohol Use (MH) Yes: occ Home Medications: Ambulatory Orders Omeprazole 20 mg PO BID 07/11/17 Losartan/Hydrochlorothiazide [Losartan-Hctz 100-25 mg Tab] 1 tab PO HS 09/01/19 SUMAtriptan succinate 100 mg PO DAILY PRN 09/01/19 Escitalopram Oxalate [Lexapro] 20 mg PO HS 12/20/19 traMADol HCL 50 mg PO Q8HR PRN 05/06/20 ALPRAZolam [Xanax] 0.25 mg PO DAILY PRN 01/12/21 Lisdexamfetamine Dimesylate [Vyvanse] 20 mg PO QAM 03/26/21 Pioglitazone [Actos] 30 mg PO DAILY 03/26/21 Diclofenac Sodium Gel [Voltaren Gel] 100 gm TOPICAL QID PRN 30 Days #100 gram 01/20/22
== END ==
LOC: PNWHC3 09:41
PROVIDERS: ATTEND Specialist
DX: M50.30 Other cervical disc degeneration, unspecified cervical region (principal); M47.812 Spondylosis without myelopathy or radiculopathy, cervical region; G89.29 Other chronic pain; M54.81 Occipital neuralgia; F17.200 Nicotine dependence, unspecified, uncomplicated; Z88.5 Allergy status to narcotic agent; Z88.1 Allergy status to other antibiotic agents; Z88.0 Allergy status to penicillin; Z88.2 Allergy status to sulfonamides
CPT/HCPCS: 99211

== ENCOUNTER → 2022-03-24 | Outpatient (CLI) | payer BC ==
[2022-03-24 13:29] VITALS: BP 129/91; PULSE 86; RESP 18
--- NOTE | 2022-03-24 14:03 | P.PAINPG ---
Objective - Vital Signs Vital signs: Vital Signs Temp Pulse 86 03/24/22 13:22 Resp 18 03/24/22 13:22 BP 129/91 03/24/22 13:22 Pulse Ox 99 03/24/22 13:22 FiO2 PQRS Measure Charge Sheet Mode of Arrival: Ambulatory Comment: A 52 yr old female with a history of severe and chronic neck pain secondary to degenerative disc diseases and spondylosis with facet arthropathy presents today for medication refills and evaluation of head/neck pain. Pain level is currently at 3/10 in intensity but escalates as high as 8/10 when chewing or w hyperextension. Pain is constant with a pressure, sharp/ throbbing sensation originating at the base of the head and shoots towards the L side of face/ L skull/ L neck. Pain is provoked by chewing, hyperextension. Pain is alleviated with PT of which she is currently in with 2 sessions left, medications (Tramadol from Dr Flores, Voltaren gel, Advil OTC), PT integrated with massage, laying supine w cervical pillow, home based exercise regimen, use of a soft C collar, repositioning and rest. Interventional pain procedures completed include L C2-C3 & 3rd O.N. RFA. Patient is currently on Tramadol, Voltaren gel, Advil OTC. Patient denies any side effects of the medication(s), denies excessive drowsiness or sleepiness, denies suicidal ideation and reports that the current pain medication is helping to control the pain and improve activities of daily living. Patient denies any motor or sensory deficits. Patient denies any fever or night sweats, denies any change in the bowel movements or urination. Physical Examination: -Constitutional: Cooperative. Not in acute distress . - Neurologic: Cranial nerve II to XII intact. No focal neurological deficits. - Psychatric: Alert & oriented x 3. Matching mood & appropriate affect. Judgment and insight intact. - Musculoskeletal: Cervical spine: +L RAJINDER/THOMAS and +R RAJINDER TTP Muscle bulk/ tone/ strength in the bilateral upper extremities normal Vertebral body tenderness to palpation over Spurling test positive Distraction test positive Facet loading test positive Thoracic spine Muscle bulk / tone/ strength in the bilateral paraspinal muscles normal Vertebral body tender to palpation over Facet loading test positive Lumbar spine: Motor bulk/ tone/ strength lower extremities , thigh and legs : 5/5 Deep tendon reflexes : Normal Knee Jerk. Normal Ankle Jerk . Vertebral body tenderness to palpation over Lumbar Facet Loading Test positive Straight Leg Raise: positive at 30 degrees right side/ left side Gaenslen's Test positive Sacral spine : Severe tenderness over the Sacroiliac joint: right side / left side Range of motion: Flexion of the lumbar spine <60 degrees Range of motion: Extension of the lumbar spine <20 degrees Gaenslen's Test positive Rod's Test positive Abrahan test: positive right side / left side Thigh Thrust Test Sacral Thrust Test Assessment and plan: Chronic neck pain secondary to degenerative disc disease , spondylosis with facet arthropathy without myelopathy Recommendation of BL O.N. blocks. May need a series of injections, up until RFA for optimal pain relief. Risks, benefits of procedure discussed and pt verbalized understanding. Denies anticoagulant use or medical history of kay samantha. All patient questions answered I have spent less than 30 minutes on patient care today. Dr Moon was available by phone for the evaluation of this patient. The time was used to rev iew the medical records including relevant urine studies and Prescription history (MAPs), review of the available imaging, evaluation and examination of the patient, coordination of care with the medical staff and if applicable referring physicians, as well as creation of the medical record - Pain Location Left Neck Non-Pharmacological Interventions: Home Exercise, Ice, Massage, Physical Therapy, Position/Reposition, Stretching Pharmacological Interventions: Block, PRN Medication, Topical Medication PQRS Narrative: Smoking Status Current every day smoker Blood Pressure 129/91 Pain Intensity [Left Neck] 3 Scale Used Numeric (1 - 10) Hx Alcohol Use (MH) Yes: occ Home Medications: Ambulatory Orders Omeprazole 20 mg PO BID 07/11/17 Losartan/Hydrochlorothiazide [Losartan-Hctz 100-25 mg Tab] 1 tab PO HS 09/01/19 SUMAtriptan succinate 100 mg PO DAILY PRN 09/01/19 Escitalopram Oxalate [Lexapro] 20 mg PO HS 12/20/19 traMADol HCL 50 mg PO Q8HR PRN 05/06/20 ALPRAZolam [Xanax] 0.25 mg PO DAILY PRN 01/12/21 Lisdexamfetamine Dimesylate [Vyvanse] 20 mg PO QAM 03/26/21 Pioglitazone [Actos] 30 mg PO DAILY 03/26/21 Diclofenac Sodium Gel [Voltaren Gel] 100 gm TOPICAL QID PRN 30 Days #100 gram 01/20/22 Controlled Substance Measures - Controlled Substance Measures Is patient prescribed a controlled substance at discharge?: No
== END ==
LOC: PNWHC3 13:03
PROVIDERS: ATTEND Specialist
DX: M50.30 Other cervical disc degeneration, unspecified cervical region (principal); M47.812 Spondylosis without myelopathy or radiculopathy, cervical region; G89.29 Other chronic pain; Z88.5 Allergy status to narcotic agent; Z88.0 Allergy status to penicillin; Z88.1 Allergy status to other antibiotic agents; Z88.2 Allergy status to sulfonamides; F17.200 Nicotine dependence, unspecified, uncomplicated
CPT/HCPCS: 99211

== ENCOUNTER 2022-05-04 11:02 | Day surgery (SDC) | payer BC ==
[2022-05-03 10:52] VITALS: BMI 47.0
[2022-05-04] MEDS ORDERED: LIDOCAINE 1% (10MG/ML) FOR IV START INTRADERMA PRN (11:39)
[2022-05-04] MEDS ORDERED: LACTATED RINGERS 1,000 ML IV SCH (11:39)
[2022-05-04 11:53] VITALS: TEMP 96.7
[2022-05-04 12:05] LABS: Glucose,Whole Blood 113 mg/dL (70-110)
[2022-05-04] MEDS ORDERED: ROPIVACAINE 5 MG/ML 20 ML AMPULE ONE (12:26)
[2022-05-04] MEDS ORDERED: MIDAZOLAM 2 MG/2 ML VIAL ONE (12:26)
[2022-05-04] MEDS ORDERED: methylPREDNISolone ACETATE 40 MG/ML 1 ML VIAL ONE (12:26)
[2022-05-04] MEDS ORDERED: fentaNYL (PF) 50 MCG/ML 2 ML AMP ONE (12:26)
--- NOTE | 2022-05-04 12:36 | P.PCN ---
Date of Procedure: 05/04/22 Procedure(s) Performed: Preoperative diagnoses= 1- Greater occipital neuralgia Postoperative diagnoses= same as preoperative diagnosis. Procedure= Bilateral Greater occipital nerve block Anesthesia= moderate sedation with Versed 2 mg and fentanyl 100 micrograms . Sedation start time 1227. Sedation end time 1233 Estimated blood loss=minimal. Procedure indication= the patient had a history of severe chronic neck pain ,and headache, diagnosed with occipital neuralgia exam was positive for severe tenderness over the occipital nerve bilaterally, she will be a good candidate occipital nerve block, patient failed conservative management Procedure description= the patient was seen and identified in the preoperative holding area, risks and benefits and alternative of the procedure and possible complications discussed with the patient, and he agreed with the preceding, patient signed the consent, an IV was started, and vital signs were monitored and were stable throughout the procedure, patient was placed in the sitting position or table and the neck area was prepped and draped with a sterile fashion, vital signs were closely monitored during the procedure, 25-gauge needle advanced 1 inch lateral to the occipital protuberance on the right side, at the location of the right occipital nerve , then after negative aspiration for heme and CSF and there was no paresthesia during the injection, 6 ml of Robivacaine 0.5% and 20 mg of Depo-Medrol injected after negative aspiration, the needle removed, and the entire same procedure was repeated for the left Greater occipital nerve. Patient tolerated the procedure well without any complication, The patient returned to supine position after the back was cleaned and a Band- Aid applied, the patient transported to recovery room in stable condition and he was monitored for 30 minutes before he was discharged home and then patient was reexamined before going home and patient was discharged in stable condition and patient will follow up with the pain clinic in a few weeks.
[2022-05-04] MEDS ORDERED: IV FLUID CONTINUATION 900 ML IV ONE (12:39)
[2022-05-04 13:06] VITALS: BP 111/67; PULSE 79; RESP 20
== END 2022-05-04 13:12 | disposition home or self-care (01) ==
LOC: ORPAIN 11:02
PROVIDERS: ATTEND Specialist
DX: M54.81 Occipital neuralgia (principal); G89.29 Other chronic pain; Z88.5 Allergy status to narcotic agent; Z88.3 Allergy status to other anti-infective agents; Z88.0 Allergy status to penicillin; Z88.2 Allergy status to sulfonamides; Z79.899 Other long term (current) drug therapy; Z79.84 Long term (current) use of oral hypoglycemic drugs; F17.210 Nicotine dependence, cigarettes, uncomplicated; Z80.8 Family history of malignant neoplasm of other organs or systems; Z82.49 Family history of ischemic heart disease and other diseases of the circulatory system
CPT/HCPCS: 64405; J2250; J1030; J3010; J2795

== ENCOUNTER → 2022-05-19 | Outpatient (CLI) | payer BC ==
[2022-05-19 13:42] VITALS: BP 138/90; PULSE 87; RESP 18; TEMP 97.6
--- NOTE | 2022-05-19 15:05 | P.PAINPG ---
Objective - Vital Signs Vital signs: Vital Signs Temp 97.6 F 05/19/22 13:24 Pulse 87 05/19/22 13:24 Resp 18 05/19/22 13:24 BP 138/90 05/19/22 13:24 Pulse Ox 97 05/19/22 13:24 FiO2 PQRS Measure Charge Sheet Mode of Arrival: Ambulatory Comment: A 52 yr old female with a history of severe and chronic low back pain secondary to lumbar degenerative disc diseases and lumbar spondylosis with facet arthropathy without myelopathy presents today for evaluation s/p BL RAJINDER. Pt states she received 80% relief x 4 wks s/p procedure. Pain level is currently at 5 /10 in intensity, constant, localized on L of cervical spine, sore in character w shooting towards the L side of the scalp. Pain is provoked by repetitive UE movements. Pain is alleviated with PT for cervical spine currently, medications (Tramadol, Aleve OTC, Imitrex, Voltaren gel), ice, home exercise regimen, repositioning and rest. Interventional pain procedures completed include BL RAJINDER injections, C2-C3 & 3rd O.N. RFA. Patient is currently on Tramadol, Aleve OTC, Imitrex Patient denies any side effects of the medication(s), denies excessive drowsiness or sleepiness, denies suicidal ideation and reports that the current pain medication is helping to control the pain and improve activities of daily living. Patient denies any motor or sensory deficits. Patient denies any fever or night sweats, denies any change in the bowel movements or urination. Physical Examination: -Constitutional: Cooperative. Not in acute distress . - Neurologic: Cranial nerve II to XII intact. No focal neurological deficits. - Psychatric: Alert & oriented x 3. Matching mood & appropriate affect. Judgment and insight intact. - Musculoskeletal: Cervical spine: +L RAJINDER TTP Muscle bulk/ tone/ strength in the bilateral upper extremities normal Vertebral body tenderness to palpation over Spurling test positive Distraction test positive Facet loading test positive Thoracic spine Muscle bulk / tone/ strength in the bilateral paraspinal muscles normal Vertebral body tender to palpation over Facet loading test positive Lumbar spine: Motor bulk/ tone/ strength lower extremities , thigh and legs : 5/5 Deep tendon reflexes : Normal Knee Jerk. Normal Ankle Jerk . Vertebral body tenderness to palpation over Lumbar Facet Loading Test positive Straight Leg Raise: positive at 30 degrees right side/ left side Gaenslen's Test positive Sacral spine : Severe tenderness over the Sacroiliac joint: right side / left side Range of motion: Flexion of the lumbar spine <60 degrees Range of motion: Extension of the lumbar spine <20 degrees Gaenslen's Test positive Rod's Test positive Abrahan test: positive right side / left side Thigh Thrust Test Sacral Thrust Test Assessment and plan: Chronic cervicogenic headaches, Occipital Neuralgia Recommendation of L RAJINDER injection #2. May need a series, up to RFA, for optimal pain relief. Risks, benefits of procedure discussed and pt verbalized understanding. Denies anticoagulant use or medical history of diabetes. All patient questions answered MAPS reviewed and it was appropriate. I have spent less than 30 minutes on patient care today. Dr Moon was available by phone for the evaluation of this patient. The time was used to review the medical records including relevant urine studies and Prescription history (MAPs), review of the available imaging, evaluation and examination of the patient, coordination of care with the medical staff and if applicable referring physicians, as well as creation of the medical record - Pain Location Bilateral Shoulder Non-Pharmacological Interventions: Home Exercise, Ice, Physical Therapy, Position/Reposition, Stretching Pharmacological Interventions: PRN Medication, Scheduled Medication, Topical Medication PQRS Narrative: Smoking Status Current every day smoker Blood Pressure 138/90 Pain Intensity [Bilateral 5 Shoulder] Scale Used Numeric (1 - 10) Hx Alcohol Use (MH) Yes: occ Home Medications: Ambulatory Orders Omeprazole 20 mg PO BID 07/11/17 Losartan/Hydrochlorothiazide [Losartan-Hctz 100-25 mg Tab] 1 tab PO HS 09/01/19 SUMAtriptan succinate 100 mg PO DAILY PRN 09/01/19 Escitalopram Oxalate [Lexapro] 20 mg PO HS 12/20/19 traMADol HCL 50 mg PO Q8HR PRN 05/06/20 ALPRAZolam [Xanax] 0.25 mg PO DAILY PRN 01/12/21 Pioglitazone [Actos] 30 mg PO DAILY 03/26/21 Diclofenac Sodium Gel [Voltaren Gel] 100 gm TOPICAL QID PRN 30 Days #100 gram 03/24/22 Lisdexamfetamine Dimesylate [Vyvanse] 30 mg PO QAM 05/03/22 Controlled Substance Measures - Controlled Substance Measures Is patient prescribed a controlled substance at discharge?: No
== END ==
LOC: PNWHC3 13:07
PROVIDERS: ATTEND Specialist
DX: M54.81 Occipital neuralgia (principal); G89.29 Other chronic pain; Z88.5 Allergy status to narcotic agent; Z88.1 Allergy status to other antibiotic agents; Z88.0 Allergy status to penicillin; Z88.2 Allergy status to sulfonamides; F17.200 Nicotine dependence, unspecified, uncomplicated
CPT/HCPCS: 99211

== ENCOUNTER → 2022-07-08 | Day surgery (SDC) | payer BC ==
[~2022-07-08] MED LIST changes: +DEXAMETHASONE SOD PHOSPHATE 10 MG/ML 1 ML VIAL ONE; +IV FLUID CONTINUATION 1,000 ML IV ONE; +MIDAZOLAM 2 MG/2 ML VIAL ONE; +ROPIVACAINE 5 MG/ML 20 ML AMPULE ONE; +fentaNYL (PF) 50 MCG/ML 2 ML AMP ONE
[2022-07-08 06:57] LABS: Glucose,Whole Blood 112 mg/dL (70-110)
[2022-07-08 06:58] VITALS: RESP 16; TEMP 96.5
[2022-07-08 07:42] VITALS: BP 113/77; PULSE 98
--- NOTE | 2022-07-08 08:37 | P.PCN ---
Date of Procedure: 07/08/22 Description of Procedure: REOPERATIVE DIAGNOSIS: Occipital neuralgia, and headaches POSTOPERATIVE DIAGNOSIS: Occipital neuralgia, and headaches PROCEDURES: 1. Left-sided Greater occipital nerve block under ultrasound guidance SURGEON: Donita Oseguera ANESTHESIA: Local and IV sedation : Versed 2 mg, and fentanyl 100 g. Sedation supervision start time: 703 Sedation supervision ended time: 711 EBL: None. Specimen removed: None Ultrasound image: Saved to electronic medical records. PROCEDURE INDICATIONS: This patient with a history of chronic headaches, and occipital neuralgia. Patient tried conservative therapy. Came here for intervention management. Procedure and Findings: The patient was seen and examined and written informed consent was obtained after explaining the risks, benefits and alternative of the procedure to the patient. As per patient request for anxiety IV was started in the preoperative holding area for sedation. The patient was positioned in the sitting position with the head slightly flexed and forehead rested on a pillow. By palpation, the external occipital protuberance and mastoid process were identified and mid point in between was located. The skin preparation was done with ChloraPrep X2 and sterile technique was observed throughout the procedure. Using ultrasound occipital vessels identified. A 25-guage, 1.5 inch needle was used for the procedure. Using out of plane approach, A 25-gauge 1.5 inch needle was placed vertically downward, bony contact was obtained under ultrasound guidance, negative aspiration was confirmed and 8 ml solution was injected. The needle was redirected little medially and laterally in a fanning fashion and addition medication was injected after negative aspiration. The block solution containing 0.5% preservative-free ropivacaine 7 mL +10 MG of dexamethasone . The needle was removed, needle puncture sites were cleaned and pressure was applied. The patient tolerated the procedure very well. COMPLICATIONS: None. DISPOSITION / PLANS: The patient was placed in a supine position and transferred to the recovery area in a stable condition for observation and was discharged from the recovery room after meeting discharge criteria. Home discharge instructions given to the patient by the staff. The patient was reexamined prior to discharge. The patient will schedule for follow-up visit with the pain clinic in 2-4 weeks duration
== END ==
LOC: ORPAIN 06:20
DX: M54.81 Occipital neuralgia (principal); I10 Essential (primary) hypertension; F41.9 Anxiety disorder, unspecified; K21.9 Gastro-esophageal reflux disease without esophagitis; Z90.49 Acquired absence of other specified parts of digestive tract; Z98.890 Other specified postprocedural states; Z88.0 Allergy status to penicillin; Z88.2 Allergy status to sulfonamides; Z88.5 Allergy status to narcotic agent
CPT/HCPCS: 64405; 99152; J2250; J1100; J3010; J2795

== ENCOUNTER → 2022-07-28 | Outpatient (CLI) | payer BC ==
[2022-07-28 13:24] VITALS: BP 123/89; PULSE 96; RESP 18; TEMP 97.6
--- NOTE | 2022-07-28 14:45 | P.PAINPG ---
PQRS Measure Charge Sheet Comment: A 52 yr old female with a history of severe and chronic HAs x 20 yrs secondary to Occipital Neuralgia and Cervicogenic MEANS presents today for evaluation s/p L RAJINDER injection. Pt states she experienced 5% pain relief x 3 wks s/p procedure. Pain level is currently at 5/10 in intensity, constant, in base of head, sharp in character w shooting towards the L neck and L head. Pain is provoked by overhead reaching or hyperextension. Pain is alleviated with PT x 2 mo in May 2022, medications (Tramadol, Advil), topicals, laying supine, repositioning and rest. Pt states she underwent a L RFA in Sep 2021 and experienced 85% pain relief x 7 mo s/p procedure. Interventional pain procedures completed include L RAJINDER injection Patient is currently on Tramadol, Advil Patient denies any side effects of the medication(s), denies excessive drowsiness or sleepiness, denies suicidal ideation and reports that the current pain medication is helping to control the pain and improve activities of daily living. Patient denies any motor or sensory deficits. Patient denies any fever or night sweats, denies any change in the bowel movements or urination. Physical Examination: -Constitutional: Cooperative. Not in acute distress . - Neurologic: Cranial nerve II to XII intact. No focal neurological deficits. - Psychatric: Alert & oriented x 3. Matching mood & appropriate affect. Judgment and insight intact. - Musculoskeletal: Cervical spine: Muscle bulk/ tone/ strength in the bilateral upper extremities normal Vertebral body tenderness to palpation over Spurling test positive Distraction test positive Facet loading test positive w jump reflex over BL C2-C3, C3-C4 facets Thoracic spine Muscle bulk / tone/ strength in the bilateral paraspinal muscles normal Vertebral body tender to palpation over Facet loading test positive Lumbar spine: Motor bulk/ tone/ strength lower extremities , thigh and legs : 5/5 Deep tendon reflexes : Normal Knee Jerk. Normal Ankle Jerk . Vertebral body tenderness to palpation over Lumbar Facet Loading Test positive Straight Leg Raise: positive at 30 degrees right side/ left side Gaenslen's Test positive Sacral spine : Severe tenderness over the Sacroiliac joint: right side / left side Range of motion: Flexion of the lumbar spine <60 degrees Range of motion: Extension of the lumbar spine <20 degrees Gaenslen's Test positive Rod's Test positive Abrahan test: positive right side / left side Thigh Thrust Test Sacral Thrust Test Assessment and plan: Chronic HAs secondary to Occiptal Neuralgia and Cervicogenic MEANS Recommendation of L RFA C2-C3, C3-C4 #1. May need a series of injections, up until RFA, for optimal pain relief. Risks, benefits of procedure discussed and pt verbalized understanding. Admits to anticoagulant use or medical history of diabetes. Discontinuation/ continuation of medications paul procedure discussed. All patient questions answered I have spent less than 30 minutes on patient care today. Dr Moon was available by phone for the evaluation of this patient. The time was used to review the medical records including relevant urine studies and Prescription history (MAPs), review of the available imaging, evaluation and examination of the patient, coordination of care with the medical staff and if applicable referring physicians, as well as creation of the medical record - Pain Location Bilateral Head Non-Pharmacological Interventions: Physical Therapy, Position/Reposition Pharmacological Interventions: Block, Medication, PRN Medication, Topical Medication PQRS Narrative: Smoking Status Current every day smoker Hx Alcohol Use (MH) Yes: occ Home Medications: Ambulatory Orders Omeprazole 20 mg PO BID 07/11/17 Losartan/Hydrochlorothiazide [Losartan-Hctz 100-25 mg Tab] 1 tab PO HS 09/01/19 SUMAtriptan succinate 100 mg PO DAILY PRN 09/01/19 Escitalopram Oxalate [Lexapro] 20 mg PO HS 12/20/19 traMADol HCL 50 mg PO Q8HR PRN 05/06/20 ALPRAZolam [Xanax] 0.25 mg PO DAILY PRN 01/12/21 Pioglitazone [Actos] 30 mg PO HS 03/26/21 Diclofenac Sodium Gel [Voltaren Gel] 100 gm TOPICAL QID PRN 30 Days #100 gram 03/24/22 Lisdexamfetamine Dimesylate [Vyvanse] 40 mg PO QAM 05/03/22 Controlled Substance Measures - Controlled Substance Measures Is patient prescribed a controlled substance at discharge?: No
== END ==
LOC: PNWHC3 12:58
PROVIDERS: ATTEND Specialist
DX: M54.81 Occipital neuralgia (principal); G44.86 Cervicogenic headache; G89.29 Other chronic pain; Z79.01 Long term (current) use of anticoagulants; E11.9 Type 2 diabetes mellitus without complications; Z88.5 Allergy status to narcotic agent; Z88.1 Allergy status to other antibiotic agents; Z88.2 Allergy status to sulfonamides; Z88.0 Allergy status to penicillin; F17.200 Nicotine dependence, unspecified, uncomplicated
CPT/HCPCS: 99211

== ENCOUNTER 2022-09-24 08:35 | Day surgery (SDC) | payer BC ==
[~2022-09-24 08:35] MED LIST changes: -DEXAMETHASONE SOD PHOSPHATE 10 MG/ML 1 ML VIAL ONE; -IV FLUID CONTINUATION 1,000 ML IV ONE; -MIDAZOLAM 2 MG/2 ML VIAL ONE; -ROPIVACAINE 5 MG/ML 20 ML AMPULE ONE; -fentaNYL (PF) 50 MCG/ML 2 ML AMP ONE
[2022-09-24 09:03] VITALS: TEMP 97.4
[2022-09-24 09:19] LABS: Glucose,Whole Blood 101 mg/dL (70-110)
[2022-09-24] MEDS ORDERED: LIDOCAINE 1% (10MG/ML) FOR IV START INTRADERMA ONE (09:19)
[2022-09-24] MEDS ORDERED: fentaNYL (PF) 50 MCG/ML 2 ML AMP ONE (09:24)
[2022-09-24] MEDS ORDERED: ROPIVACAINE 5 MG/ML 20 ML AMPULE ONE (09:24)
[2022-09-24] MEDS ORDERED: MIDAZOLAM 2 MG/2 ML VIAL ONE (09:24)
[2022-09-24] MEDS ORDERED: TRIAMCINOLONE ACETONIDE 40 MG/ML 1 ML VIAL ONE (09:24)
--- NOTE | 2022-09-24 10:18 | P.PCN ---
Date of Procedure: 09/24/22 Description of Procedure: Procedure(s) Performed: PREOPERATIVE DIAGNOSIS:1- Cervical spondylosis with Facet Arthropathy without myelopathy. 2-cervicogenic headache. 3-occipital neuralgia POSTOPERATIVE DIAGNOSIS: Same as preop diagnosis. PROCEDURES: Radiofrequency thermocoagulation left C2 ,C3 medial branch with Fluroscopy [place](fluoroscopy was available in etiology department ) Radiofrequency thermocoagulation of the left third occipital nerve ANESTHESIA: monitered anesthesia care as per anesthesia department Anesthesia Time: Fluoroscopy images were stable to store into electronic medical record EBL: Minimal PROCEDURE INDICATION: The patient with neck pain and headache secondary to cervical arthropathy , and occipital neuralgia who had more than 50% relief of her pain with previous diagnostic cervical medial branch block. PROCEDURE DESCRIPTION / TECHNIQUE: The patient was seen and identified in the preoperative area. Risks, benefits, complications, and alternatives were discussed with the patient, the patient agreed to proceed with the procedure and signed the consent. IV was started. Vital signs remained stable throughout the procedure. Patient was taken to the OR and time out was completed. The patient was placed in the prone position on the procedure table. A pillow was placed under the patients chest to increase the cervical interlaminar space. The cervical area was prepped and draped in the usual sterile fashion. Critical pause was taken. Vital signs were closely monitored during the procedure. Conscious sedation was used during the procedure to decrease patients anxiety. Anterior Posterior of the cervical spine was identified and the pillar/waist of C3 marked, and localized with 1% lidocaine. Subsequently, a 20 guage 150-mm r adiofrequency cannula with a 10-mm active tip was advanced guided by fluoroscopy to the Waist of C3. Then lateral imaging was used to place in the trapezoid of the C3 vertebral body. The same was repeated for the Third occipital nerve. Each site then underwent sensory testing at 50 Hz and 0 to 1 volt and motor testing at 2 Hz and 0 to 3 volt with local stimulation of the maltifius muscle, but no radicular symptoms down the arm. Thereafter each sites underwent radiofrequency thermocoagulation at 80 degrees celsius for 90 seconds after injecting 0.5 ml of Lidocaine 1 %. After thermocoagulation, 1 ml of the block solution containing Depo-Medrol 40 mg and 3 mL of ropivacaine 0.5% was injected at the left C2 ,C3, and left 3rd occipital nerve levels after negative aspiration of CSF and blood and with no paresthesias. Cannulas were retracted while injecting lidocaine 1% until the needle is out. Skin was cleansed and bandages were applied. COMPLICATIONS: No acute complications. DISPOSITION / PLANS: The patient was placed in a supine position and transferred to the recovery area in a stable condition for observation and was discharged from the recovery room after meeting discharge criteria. Home discharge instructions given to the patient by the staff. The patient was reexamined prior to discharge. The patient will schedule a follow up in the clinic in 2-4 weeks.
[2022-09-24] MEDS ORDERED: IV FLUID CONTINUATION 1,000 ML IV ONE (10:22)
--- NOTE | 2022-09-24 10:30 | FL ---
Intraoperative/procedural fluoroscopic services were provided for radiofrequency left cervical. Total fluoroscopy time is 22 seconds with a total of 8 submitted images to PACS. Please see the operative note for further details.
[2022-09-24 10:35] VITALS: BP 126/84; PULSE 81; RESP 16
== END 2022-09-24 10:58 | disposition home or self-care (01) ==
LOC: ORPAIN 08:35
PROVIDERS: ATTEND Anesthesiology
DX: M47.812 Spondylosis without myelopathy or radiculopathy, cervical region (principal); G44.86 Cervicogenic headache; M54.81 Occipital neuralgia; I10 Essential (primary) hypertension; E78.5 Hyperlipidemia, unspecified; R73.03 Prediabetes; G43.909 Migraine, unspecified, not intractable, without status migrainosus; F41.9 Anxiety disorder, unspecified; F90.9 Attention-deficit hyperactivity disorder, unspecified type; K21.9 Gastro-esophageal reflux disease without esophagitis; F32.A Depression, unspecified; Z88.0 Allergy status to penicillin; Z88.2 Allergy status to sulfonamides; Z88.5 Allergy status to narcotic agent; Z88.1 Allergy status to other antibiotic agents; Z71.89 Other specified counseling; Z87.891 Personal history of nicotine dependence; Z79.899 Other long term (current) drug therapy
CPT/HCPCS: 64633; J2250; J3301; J3010; J2795

== ENCOUNTER → 2022-10-11 | Outpatient (CLI) | payer BC ==
[2022-10-11 15:20] VITALS: BP 130/85; PULSE 91; RESP 18; TEMP 97.6
--- NOTE | 2022-10-11 15:48 | P.PAINPG ---
PQRS Measure Charge Sheet Comment: A 52 yr old female with a history of severe and chronic neck pain secondary to cervical DDD and spondylosis with facet arthropathy without myelopathy presents today for evaluation s/p L RFA C2-C3, C3-C4. Pt states she experienced 90 % pain relief s/p procedure. Pain level is provoked at 8/10 in intensity, constant, localized in the cervical spine, sharp in character without radiation of pain. Pain is provoked by rotation, hyperextension, laying on R side. Pain is alleviated with medications (Tramadol, Advil), topicals, injections in the past, ice, PT 8 weeks in 2021, repositioning and rest. Would like to try TENS unit at PT. Interventional pain procedures completed include L RFA C2-C3, C3-C4 Patient is currently on Tramadol, Advil Patient denies any side effects of the medication(s), denies excessive drowsiness or sleepiness, denies suicidal ideation and reports that the current pain medication is helping to control the pain and improve activities of daily living. Patient denies any motor or sensory deficits. Patient denies any fever or night sweats, denies any change in the bowel movements or urination. Physical Examination: -Constitutional: Cooperative. Not in acute distress . - Neurologic: Cranial nerve II to XII intact. No focal neurological deficits. - Psychatric: Alert & oriented x 3. Matching mood & appropriate affect. Judgment and insight intact. - Musculoskeletal: Cervical spine: Muscle bulk/ tone/ strength in the bilateral upper extremities normal Vertebral body tenderness to palpation over C3 Spurling test positive Distraction test positive Facet loading test positive Thoracic spine Muscle bulk / tone/ strength in the bilateral paraspinal muscles normal Vertebral body tender to palpation over Facet loading test positive Lumbar spine: Motor bulk/ tone/ strength lower extremities , thigh and legs : 5/5 Deep tendon reflexes : Normal Knee Jerk. Normal Ankle Jerk . Vertebral body tenderness to palpation over Lumbar Facet Loading Test positive Straight Leg Raise: positive at 30 degrees right side/ left side Gaenslen's Test positive Sacral spine : Severe tenderness over the Sacroiliac joint: right side / left side Range of motion: Flexion of the lumbar spine <60 degrees Range of motion: Extension of the lumbar spine <20 degrees Gaenslen's Test positive Abrahan test: positive right side / left side Thigh Thrust Test Sacral Thrust Test Assessment and plan: Chronic neck pain secondary to cervical DDD, spondylosis with facet arthropathy without myelopathy Recommendation of PT x 6 wks re: M50.30. Pt interested in TENS unit use for home care. May return to clinic as needed. All patient questions answered Prescription for Lidoderm 5% QAM, #30 NR. Use alternating w Diclofenac gel on off days. I have spent less than 30 minutes on patient care today. Dr Moon was available by phone for the evaluation of this patient. The time was used to review the medical records including relevant urine studies and Prescription history (MAPs), review of the available imaging, evaluation and examination of the patient, coordination of care with the medical staff and if applicable referring physicians, as well as creation of the medical record PQRS Narrative: Smoking Status Current every day smoker Hx Alcohol Use (MH) Yes: occ Home Medications: Ambulatory Orders Omeprazole 20 mg PO BID 07/11/17 Losartan/Hydrochlorothiazide [Losartan-Hctz 100-25 mg Tab] 1 tab PO HS 09/01/19 SUMAtriptan succinate 100 mg PO DAILY PRN 09/01/19 Escitalopram Oxalate [Lexapro] 20 mg PO HS 12/20/19 traMADol HCL 50 mg PO Q8HR PRN 05/06/20 ALPRAZolam [Xanax] 0.25 mg PO DAILY PRN 01/12/21 Pioglitazone [Actos] 30 mg PO HS 03/26/21 Diclofenac Sodium Gel [Voltaren Gel] 100 gm TOPICAL QID PRN 30 Days #100 gram 03/24/22 Lisdexamfetamine Dimesylate [Vyvanse] 40 mg PO QAM 05/03/22 Controlled Substance Measures - Controlled Substance Measures Is patient prescribed a controlled substance at discharge?: No
== END ==
LOC: PNWHC3 13:06
PROVIDERS: ATTEND Specialist
DX: M47.812 Spondylosis without myelopathy or radiculopathy, cervical region (principal); M50.30 Other cervical disc degeneration, unspecified cervical region; Z88.5 Allergy status to narcotic agent; Z88.0 Allergy status to penicillin; Z88.1 Allergy status to other antibiotic agents; Z88.2 Allergy status to sulfonamides; F17.200 Nicotine dependence, unspecified, uncomplicated
CPT/HCPCS: 99211

== ENCOUNTER → 2024-03-15 | Outpatient (CLI) | payer BC ==
[2024-03-15 13:51] VITALS: BP 133/83; PULSE 72; RESP 16
--- NOTE | 2024-03-15 14:55 | P.PAINPG ---
Objective - Vital Signs Vital signs: Vital Signs Temp Pulse 72 03/15/24 13:48 Resp 16 03/15/24 13:48 BP 133/83 03/15/24 13:48 Pulse Ox 97 03/15/24 13:48 FiO2 Intake & Output 03/14/24 03/15/24 03/15/24 18:59 06:59 18:59 Weight 117.934 kg PQRS Measure Charge Sheet Mode of Arrival: Ambulatory Comment: A 52 yr old female with a history of severe and chronic neck pain secondary to cervical DDD and spondylosis with facet arthropathy without myelopathy presents today for evaluation. Pt underwent a L RFA C2-C4 in Sep 2022 where she experienced 90 % pain relief x 10 mo s/p procedure. Pain level is provoked at 8/10 in intensity, constant, localized in the cervical spine, predominantly axial, sharp in character w occasional radiation of pain towards the L shoulder. Pain is provoked by rotation, hyperextension, laying on R side. Pain is alleviated with PT x 6 wks in Oct 2022, physician guided home exercise regimen every other day since Oct 2022, medications, topicals, injections in the past, ice, PT 8 weeks in 2021, use of TENS unit at home, repositioning and rest. Cervical disability score of 19. Interventional pain procedures completed include L RFA C2-C4 (Sep 2022) Patient is currently on Tramadol, Advil Patient denies any side effects of the medication(s), denies excessive drowsiness or sleepiness, denies suicidal ideation and reports that the current pain medication is helping to control the pain and improve activities of daily living. Patient denies any motor or sensory deficits. Patient denies any fever or night sweats, denies any change in the bowel movements or urination. Physical Examination: -Constitutional: Cooperative. Not in acute distress . - Neurologic: Cranial nerve II to XII intact. No focal neurological deficits. - Psychatric: Alert & oriented x 3. Matching mood & appropriate affect. Judgment and insight intact. - Musculoskeletal: Cervical spine: Muscle bulk/ tone/ strength in the bilateral upper extremities normal Vertebral body tenderness to palpation Spurling test positive Distraction test positive Facet loading test positive L C2-C3, C3-C4 Thoracic spine Muscle bulk / tone/ strength in the bilateral paraspinal muscles normal Vertebral body tender to palpation over Facet loading test positive Lumbar spine: Motor bulk/ tone/ strength lower extremities , thigh and legs : 5/5 Deep tendon reflexes : Normal Knee Jerk. Normal Ankle Jerk . Vertebral body tenderness to palpation over Lumbar Facet Loading Test positive Straight Leg Raise: positive at 30 degrees right side/ left side Gaenslen's Test positive Sacral spine : Severe tenderness over the Sacroiliac joint: right side / left side Range of motion: Flexion of the lumbar spine <60 degrees Range of motion: Extension of the lumbar spine <20 degrees Gaenslen's Test positive Abrahan test: positive right side / left side Thigh Thrust Test Sacral Thrust Test Assessment and plan: Chronic neck pain secondary to cervical DDD, spondylosis with facet arthropathy without myelopathy Recommendation of L RFA C2-C4. Pt exhibited substantial pain relief w prior L RFA procedure. Risks, benefits of procedure discussed and pt verbalized understanding. Protocol for discontinuation/ continuation of medications paul procedure discussed. All patient questions answered I have spent less than 30 minutes on patient care today. Dr Moon was available by phone for the evaluation of this patient. The time was used to review the medical records including relevant urine studies and Prescription history (MAPs), review of the available imaging, evaluation and examination of the patient, coordination of care with the medical staff and if applicable referring physicians, as well as creation of the medical record - Pain Location Left Neck Pharmacological Interventions: Medication PQRS Narrative: Smoking Status Current every day smoker Blood Pressure 133/83 Pain Intensity [Left Neck] 3 Scale Used Numeric (1 - 10) Hx Alcohol Use (MH) Yes: occ Home Medications: Ambulatory Orders Omeprazole 20 mg PO BID 07/11/17 Losartan/Hydrochlorothiazide [Losartan-Hctz 100-25 mg Tab] 1 tab PO HS 09/01/19 SUMAtriptan succinate 100 mg PO DAILY PRN 09/01/19 Escitalopram Oxalate [Lexapro] 20 mg PO HS 12/20/19 ALPRAZolam [Xanax] 0.25 mg PO DAILY PRN 01/12/21 Dextroamphetamine/Amphetamine [Adderall] 30 mg PO DAILY 04/06/23 Diclofenac Sodium Gel [Voltaren 1% Gel] 2 - 4 gm TOPICAL QID PRN 04/06/23 EPINEPHrine (Auto Inject) [Epipen] 0.3 mg IM ONCE PRN 04/06/23 Ondansetron [Zofran] 4 mg PO Q6H PRN 04/06/23 Tirzepatide [Mounjaro] 5 mg SQ TH 04/06/23 polyethylene glycoL 3350 [Miralax] 17 gm PO DAILY PRN 04/06/23 Rivaroxaban [Xarelto Starter Pack] 0 mg PO DIRECTED 30 Days #1 packet 04/07/23 Controlled Substance Measures - Controlled Substance Measures Is patient prescribed a controlled substance at discharge?: No
== END ==
LOC: PNWHC3 13:29
PROVIDERS: ATTEND Specialist
DX: G44.86 Cervicogenic headache (principal); M54.81 Occipital neuralgia; M47.812 Spondylosis without myelopathy or radiculopathy, cervical region; M50.31 Other cervical disc degeneration, high cervical region; F17.200 Nicotine dependence, unspecified, uncomplicated; Z88.0 Allergy status to penicillin; Z88.2 Allergy status to sulfonamides; Z88.1 Allergy status to other antibiotic agents; Z88.5 Allergy status to narcotic agent
CPT/HCPCS: 99211

== ENCOUNTER 2024-06-07 09:21 | Day surgery (SDC) | payer BC ==
[2024-06-07] MEDS: IV FLUID CONTINUATION 1,000 ML IV ONE (09:48)
[2024-06-07 09:56] VITALS: TEMP 97
[2024-06-07 10:12] LABS: Glucose,Whole Blood 118 mg/dL (70-110)
[2024-06-07] MEDS ORDERED: LACTATED RINGERS 1,000 ML IV SCH (11:06)
[2024-06-07] MEDS ORDERED: fentaNYL (PF) 50 MCG/ML 2 ML AMP ONE (11:18)
[2024-06-07] MEDS ORDERED: MIDAZOLAM 2 MG/2 ML VIAL ONE (11:18)
[2024-06-07] MEDS ORDERED: ROPIVACAINE 5MG/ML 20ML VIAL ONE (11:18)
[2024-06-07] MEDS: IV FLUID CONTINUATION 600 ML IV ONE (12:05)
--- NOTE | 2024-06-07 12:07 | FL ---
Fluoroscopy INDICATION: Pain FINDINGS: Fluoroscopy time: 78.4 seconds. Total dose area product (DAP) in uGy*m?, mGy*cm? (or similar): 0.68668 Images obtained: 6. IMPRESSION: 1. Documentation of fluoroscopy. [facility], , 06/07/2024 12:04 PM
--- NOTE | 2024-06-07 12:17 | P.PCN ---
Description of Procedure: Procedure done. Left C2-3, facet joint (C3,C2 medial branch of dorsal ramus and third occipital nerve) radiofrequency ablation under fluoroscopic guidance. Anesthesia. IV sedation with Versed 2 mg, fentanyl 100 mcg. Continuous pulse ox, EKG, blood pressure and verbal communication was maintained with the patient in OR. Blood loss. None. Indication. Patient has got the diagnoses of cervical spondylolysis, facet joint arthropathy with neck pain. Diagnostic medial branch block relieved significant pain. Also on the left side patient's pain goes on the top of the head at the distribution of left greater occipital nerve. Discussed with the patient procedure, alternatives, complications including infection, bleeding, n erve damage, paralysis all of which could be permanent. Patient understands and all questions are answered. Procedure note. After getting consent patient in OR in prone position. Back of the neck was prepped with chlorhexidine and draped in sterile fashion. After injecting 3 mL of plain 1% lidocaine subcutaneously, a 20-gauge RFA needle was introduced under tunnel vision of the fluoroscope AP view at the waist of the articular pillar (lateral mass) at C3 vertebral level. In the lateral view of the fluoroscope it was confirmed that the tip of the needle stayed within the dorsal half of the articular pillar (lateral mass). C2-3 facet joint was targeted by blocking C3,C2 medial branch and third occipital nerve. In exactly the same way , after subcutaneous injection of lidocaine, 20-gauge RFA needle were introduced under tunnel vision of the fluoroscope AP view at the waist of the articular pillars (lateral mass) at C2 vertebral level. In the lateral view of the fluoroscope it was confirmed that the tip of the needle stayed within the dorsal half of the articular pillar (lateral mass). To target third occipital nerve needle was placed at the lateral border of C2-3 zygapophyseal joint itself. After positive sensory and negative motor stimulation, radiofrequency ablation was done at 80 C's for 90 seconds. Second lesion was done at the same settings after rotating the needls 180 degrees. After the procedure needle was taken out and bandage was applied. Disposition. Patient tolerated the procedure well. No complication. Discharged home in stable condition.
[2024-06-07 12:25] VITALS: BP 122/81; PULSE 59; RESP 16
== END 2024-06-07 12:41 | disposition home or self-care (01) ==
LOC: ORPAIN 09:21
PROVIDERS: ATTEND Pain Medicine Interventional Pain Medicine
DX: M47.812 Spondylosis without myelopathy or radiculopathy, cervical region
CPT/HCPCS: 64633; 64634; 99152; 99153

== ENCOUNTER → 2024-07-05 | Outpatient (CLI) | payer BC ==
[2024-07-05 14:43] VITALS: BP 122/82; PULSE 73; RESP 16
--- NOTE | 2024-07-05 15:10 | P.PAINPG ---
PQRS Measure Charge Sheet Comment: A 52 yr old female with a history of severe and chronic neck pain secondary to radiculopathy, spondylosis with facet arthropathy without myelopathy presents today for evaluation s/p L RFA C2-C4. Pt states she experienced 90 % pain relief s/p procedure. Pain level is provoked at 8 /10 in intensity, constant, localized in the L base of head, predominantly axial, sharp in character w occasional radiation of pain towards the L side of head. Pain is provoked by laying supine. Pain is alleviated with PT x 6 wks in Oct 2022, physician guided home exercise regimen every other day since Oct 2022, medications, topicals, injections in the past, ice, PT 8 weeks in 2021, use of TENS unit at home, repositioning and rest. Interventional pain procedures completed include L RFA C2-C4 x2 (Sep 2022, May 2024) Patient is currently on Tramadol, Advil, Tyl, Voltaren Gel Patient denies any side effects of the medication(s), denies excessive drowsiness or sleepiness, denies suicidal ideation and reports that the current pain medication is helping to control the pain and improve activities of daily living. Patient denies any motor or sensory deficits. Patient denies any fever or night sweats, denies any change in the bowel movements or urination. Physical Examination: -Constitutional: Cooperative. Not in acute distress . - Neurologic: Cranial nerve II to XII intact. No focal neurological deficits. - Psychatric: Alert & oriented x 3. Matching mood & appropriate affect. Judgment and insight intact. - Musculoskeletal: Cervical spine: +L RAJINDER TTP Muscle bulk/ tone/ strength in the bilateral upper extremities normal Vertebral body tenderness to palpation Spurling test positive Distraction test positive Facet loading test positive L C2-C3, C3-C4 Thoracic spine Muscle bulk / tone/ strength in the bilateral paraspinal muscles normal Vertebral body tender to palpation over Facet loading test positive Lumbar spine: Motor bulk/ tone/ strength lower extremities , thigh and legs : 5/5 Deep tendon reflexes : Normal Knee Jerk. Normal Ankle Jerk . Vertebral body tenderness to palpation over Lumbar Facet Loading Test positive Straight Leg Raise: positive at 30 degrees right side/ left side Gaenslen's Test positive Sacral spine : Severe tenderness over the Sacroiliac joint: right side / left side Range of motion: Flexion of the lumbar spine <60 degrees Range of motion: Extension of the lumbar spine <20 degrees Gaenslen's Test positive Abrahan test: positive right side / left side Thigh Thrust Test Sacral Thrust Test Assessment and plan: Chronic neck pain secondary to Occipital Neuralgia, Cervicogenic MEANS Recommendation of Skull X ray M54.81. May need additional testing if clinically indicated. Opiate/ Narcotic agreement signed 07/05/24. Lyrica 75mg #60 w 1 RF. Use, side effects, adverse reactions, safe storage discussed. All patient questions answered I have spent less than 30 minutes on patient care today. Dr Moon was available by phone for the evaluation of this patient. The time was used to review the medical records including relevant urine studies and Prescription history (MAPs), review of the available imaging, evaluation and examination of the patient, coordination of care with the medical staff and if applicable referring physicians, as well as creation of the medical record PQRS Narrative: Smoking Status Current every day smoker Hx Alcohol Use (MH) Yes: occ Home Medications: Ambulatory Orders Omeprazole 20 mg PO BID 07/11/17 Losartan/Hydrochlorothiazide [Losartan-Hctz 100-25 mg Tab] 1 tab PO HS 09/01/19 SUMAtriptan succinate 100 mg PO DAILY PRN 09/01/19 Escitalopram Oxalate [Lexapro] 20 mg PO HS 12/20/19 ALPRAZolam [Xanax] 0.25 mg PO DAILY PRN 01/12/21 Dextroamphetamine/Amphetamine [Adderall] 30 mg PO DAILY 04/06/23 Diclofenac Sodium Gel [Voltaren 1% Gel] 2 - 4 gm TOPICAL QID PRN 04/06/23 EPINEPHrine (Auto Inject) [Epipen] 0.3 mg IM ONCE PRN 04/06/23 Ondansetron [Zofran] 4 mg PO Q6H PRN 04/06/23 Tirzepatide [Mounjaro] 5 mg SQ TH 04/06/23 polyethylene glycoL 3350 [Miralax] 17 gm PO DAILY PRN 04/06/23 Rivaroxaban [Xarelto Starter Pack] 0 mg PO DIRECTED 30 Days #1 packet 04/07/23 Pregabalin [Lyrica] 75 mg PO BID 30 Days #60 cap 07/05/24 Controlled Substance Measures - Controlled Substance Measures Is patient prescribed a controlled substance at discharge?: Yes When asked, does pt state using other controlled substances?: Yes If prescribed controlled substance>3 days was MAPS reviewed?: Yes If Rx opioid, was Start Talking consent form obtained?: Yes Was information provided regarding opioid addiction?: Yes
--- NOTE | 2024-07-05 17:30 | XR ---
EXAMINATION TYPE: XR skull limited DATE OF EXAM: 07/05/2024 3:36 PM CLINICAL INDICATION: Female, 54 years old with history of [id number]; [facility] COMPARISON: None. TECHNIQUE: 2 views of the skull. In frontal and lateral projections. FINDINGS: Soft tissues and osseous structures are within normal limits. The paranasal sinuses and mastoid air cells are well aerated. No evidence of fracture. No suspicious lytic or sclerotic lesion. Suspected b enign hyperostosis frontalis noted versus dural calcifications. IMPRESSION: No evidence of radiopaque foreign body. [facility], , 07/05/2024 5:28 PM
== END ==
LOC: PNWHC3 13:38
PROVIDERS: ATTEND Specialist
DX: M47.812 Spondylosis without myelopathy or radiculopathy, cervical region
CPT/HCPCS: 70250; 99211

== ENCOUNTER → 2024-07-16 | Outpatient (CLI) | payer BC ==
--- NOTE | 2024-07-17 10:47 | MR ---
EXAMINATION TYPE: MR brain wo con DATE OF EXAM: 07/16/2024 10:13 PM COMPARISON: None. CLINICAL INDICATION: Female, 54 years old with history of M54.81; PHH, Head pain that starts base of skull around to forehead, general headaches TECHNIQUE: Multi planar, multi sequence imaging was performed through the brain including: T1, T2, In version recovery, Diffusion weighted imaging, and gradient echo imaging. No gadolinium was given. FINDINGS: The zamarripa-white junctions, ventricular system, basal cisterns appear unremarkable. . Midline structu res show no abnormality. Diffusion-weighted imaging shows no evidence of restricted diffusion. The nicole sceptibility weighted images do not reveal any evidence for micro-hemorrhage. The bone marrow signal is within normal limits. Paranasal sinuses and mastoid air cells: No significant paranasal sinus disease. Visualized orbits: Orbital contents are intact. IMPRESSION: No evidence of intracranial mass or acute/subacute infarct. [facility], , 07/17/2024 10:44 AM
== END | disposition home or self-care (01) ==
LOC: RADMRIMAIN 21:45
PROVIDERS: ATTEND Specialist
CPT/HCPCS: 70551

== ENCOUNTER → 2024-08-13 | Outpatient (CLI) | payer BC ==
[2024-08-13 14:15] VITALS: BP 119/84; PULSE 77; RESP 16
--- NOTE | 2024-08-13 16:51 | P.PAINPG ---
Objective - Vital Signs Vital signs: Intake & Output 08/12/24 08/13/24 08/13/24 18:59 06:59 18:59 Weight 86.183 kg PQRS Measure Charge Sheet Comment: A 54 yr old female with a history of severe and chronic neck pain secondary to occipital neuralgia, cervicogenic MEANS presents today for imaging results. Pain level is provoked at 7 /10 in intensity, constant, localized in the L base of head, predominantly axial, sharp in character w occasional radiation of pain towards the L side of head. Pain is provoked by laying supine. Pain is alleviated with PT x 6 wks in Oct 2022, physician guided home exercise regimen every other day since Oct 2022, medications, topicals, injections in the past, ice, PT 8 weeks in 2021, use of TENS unit at home, repositioning and rest. Interventional pain procedures completed include L RFA C2-C4 x2 (Sep 2022, May 2024) Patient is currently on Tramadol, Advil, Tyl, Voltaren Gel Patient denies any side effects of the medication(s), denies excessive drowsiness or sleepiness, denies suicidal ideation and reports that the current pain medication is helping to control the pain and improve activities of daily living. Patient denies any motor or sensory deficits. Patient denies any fever or night sweats, denies any change in the bowel movements or urination. Physical Examination: -Constitutional: Cooperative. Not in acute distress . - Neurologic: Cranial nerve II to XII intact. No focal neurological deficits. - Psychatric: Alert & oriented x 3. Matching mood & appropriate affect. Judgment and insight intact. - Musculoskeletal: Cervical spine: +L RAJINDER TTP Muscle bulk/ tone/ strength in the bilateral upper extremities normal Vertebral body tenderness to palpation Spurling test positive Distraction test positive Facet loading test positive L C2-C3, C3-C4 Thoracic spine Muscle bulk / tone/ strength in the bilateral paraspinal muscles normal Vertebral body tender to palpation over Facet loading test positive Lumbar spine: Motor bulk/ tone/ strength lower extremities , thigh and legs : 5/5 Deep tendon reflexes : Normal Knee Jerk. Normal Ankle Jerk . Vertebral body tenderness to palpation over Lumbar Facet Loading Test positive Straight Leg Raise: positive at 30 degrees right side/ left side Gaenslen's Test positive Sacral spine : Severe tenderness over the Sacroiliac joint: right side / left side Range of motion: Flexion of the lumbar spine <60 degrees Range of motion: Extension of the lumbar spine <20 degrees Gaenslen's Test positive Abrahan test: positive right side / left side Thigh Thrust Test Sacral Thrust Test Imaging: MRI Brain non contrast from 07/16/24 reviewed Assessment and plan: Chronic neck pain secondary to Occipital Neuralgia, Cervicogenic MEANS Recommendation of Osmin CALVILLO #1. Risks, benefits of procedure discussed and pt verbalized understanding. Opiate/ Narcotic agreement signed 07/05/24. Ample nicole pply of Lyrica 75mg #60 w 1 RF. Use, side effects, adverse reactions, safe storage discussed. All patient questions answered I have spent less than 30 minutes on patient care today. Dr Moon was available by phone for the evaluation of this patient. The time was used to review the medical records including relevant urine studies and Prescription history (MAPs), review of the available imaging, evaluation and examination of the patient, coordination of care with the medical staff and if applicable referring physicians, as well as creation of the medical record PQRS Narrative: Smoking Status Current every day smoker Hx Alcohol Use (MH) Yes: occ Home Medications: Ambulatory Orders Omeprazole 20 mg PO BID 07/11/17 Losartan/Hydrochlorothiazide [Losartan-Hctz 100-25 mg Tab] 1 tab PO HS 09/01/19 SUMAtriptan succinate 100 mg PO DAILY PRN 09/01/19 Escitalopram Oxalate [Lexapro] 20 mg PO HS 12/20/19 ALPRAZolam [Xanax] 0.25 mg PO DAILY PRN 01/12/21 Dextroamphetamine/Amphetamine [Adderall] 30 mg PO DAILY 04/06/23 Diclofenac Sodium Gel [Voltaren 1% Gel] 2 - 4 gm TOPICAL QID PRN 04/06/23 EPINEPHrine (Auto Inject) [Epipen] 0.3 mg IM ONCE PRN 04/06/23 Ondansetron [Zofran] 4 mg PO Q6H PRN 04/06/23 Tirzepatide [Mounjaro] 5 mg SQ TH 04/06/23 polyethylene glycoL 3350 [Miralax] 17 gm PO DAILY PRN 04/06/23 Rivaroxaban [Xarelto Starter Pack] 0 mg PO DIRECTED 30 Days #1 packet 04/07/23 Pregabalin [Lyrica] 75 mg PO BID 30 Days #60 cap 07/05/24 Controlled Substance Measures - Controlled Substance Measures Is patient prescribed a controlled substance at discharge?: No
== END ==
LOC: PNWHC3 13:41
PROVIDERS: ATTEND Specialist
DX: M54.81 Occipital neuralgia (principal); G44.86 Cervicogenic headache; F17.200 Nicotine dependence, unspecified, uncomplicated; Z88.0 Allergy status to penicillin; Z88.2 Allergy status to sulfonamides; Z88.1 Allergy status to other antibiotic agents
CPT/HCPCS: 99211

== ENCOUNTER → 2024-08-29 | Outpatient (CLI) | payer BC ==
[2024-08-29 14:15] VITALS: BP 130/91; PULSE 82; RESP 19; TEMP 96.9
--- NOTE | 2024-08-29 14:45 | P.PAINPG ---
PQRS Measure Charge Sheet Comment: A 54 yr old female with a history of severe and chronic neck pain secondary to occipital neuralgia, cervicogenic MEANS presents today for evaluation s/p L RAJINDER #1. Pt states she experienced > 50% pain relief x 2 wks s/p procedure. Pain level is provoked at 7 /10 in intensity, constant, localized in the L base of head, predominantly axial, sharp in character w occasional radiation of pain towards the L side of head. Pain is provoked by laying supine. Pain is alleviated with PT x 6 wks in Oct 2022, physician guided home exercise regimen every other day since Oct 2022, medications, topicals, injections in the past, ice, PT 8 weeks in 2021, use of TENS unit at home, repositioning and rest. She feels "hazy" on Lyrica and would like another regimen. Interventional pain procedures completed include L RFA C2-C4 x2 (Sep 2022, May 2024), L RAJINDER x1 Patient is currently on Tramadol, Advil, Tyl, Voltaren Gel Patient denies any side effects of the medication(s), denies excessive drowsiness or sleepiness, denies suicidal ideation and reports that the current pain medication is helping to control the pain and improve activities of daily living. Patient denies any motor or sensory deficits. Patient denies any fever or night sweats, denies any change in the bowel movements or urination. Physical Examination: -Constitutional: Cooperative. Not in acute distress . - Neurologic: Cranial nerve II to XII intact. No focal neurological deficits. - Psychatric: Alert & oriented x 3. Matching mood & appropriate affect. Judgment and insight intact. - Musculoskeletal: Cervical spine: +BL RAJINDER TTP Muscle bulk/ tone/ strength in the bilateral upper extremities normal Vertebral body tenderness to palpation Spurling test positive Distraction test positive Facet loading test positive L C2-C3, C3-C4 Thoracic spine Muscle bulk / tone/ strength in the bilateral paraspinal muscles normal Vertebral body tender to palpation over Facet loading test positive Lumbar spine: Motor bulk/ tone/ strength lower extremities , thigh and legs : 5/5 Deep tendon reflexes : Normal Knee Jerk. Normal Ankle Jerk . Vertebral body tenderness to palpation over Lumbar Facet Loading Test positive Straight Leg Raise: positive at 30 degrees right side/ left side Gaenslen's Test positive Sacral spine : Severe tenderness over the Sacroiliac joint: right side / left side Range of motion: Flexion of the lumbar spine <60 degrees Range of motion: Extension of the lumbar spine <20 degrees Gaenslen's Test positive Abrahan test: positive right side / left side Thigh Thrust Test Sacral Thrust Test Imaging: MRI Brain non contrast from 07/16/24 reviewed Assessment and plan: Chronic neck pain secondary to Occipital Neuralgia, Cervicogenic MEANS Recommendation of BL RAJINDER #1 and medication management. Risks, benefits of procedure discussed and pt verbalized understanding. Opiate/ Narcotic agreement signed 07/05/24. Lyrica 50mg #90 w 1 RF. Use, side effects, adverse reactions, safe storage discussed. All patient questions answered I have spent less than 30 minutes on patient care today. Dr Moon was available by phone for the evaluation of this patient. The time was used to review the medical records including relevant urine studies and Prescription history (MAPs), review of the available imaging, evaluation and examination of the patient, coordination of care with the medical staff and if applicable referring physicians, as well as creation of the medical record - Pain Location Neck Non-Pharmacological Interventions: Heat, Ice, Inactivity, Relaxation Technique PQRS Narrative: Smoking Status Current every day smoker Hx Alcohol Use (MH) Yes: occ Home Medications: Ambulatory Orders Omeprazole 20 mg PO BID 07/11/17 Losartan/Hydrochlorothiazide [Losartan-Hctz 100-25 mg Tab] 1 tab PO HS 09/01/19 SUMAtriptan succinate 100 mg PO DAILY PRN 09/01/19 Escitalopram Oxalate [Lexapro] 20 mg PO HS 12/20/19 ALPRAZolam [Xanax] 0.25 mg PO DAILY PRN 01/12/21 Dextroamphetamine/Amphetamine [Adderall] 30 mg PO DAILY 04/06/23 Diclofenac Sodium Gel [Voltaren 1% Gel] 2 - 4 gm TOPICAL QID PRN 04/06/23 EPINEPHrine (Auto Inject) [Epipen] 0.3 mg IM ONCE PRN 04/06/23 Ondansetron [Zofran] 4 mg PO Q6H PRN 04/06/23 Tirzepatide [Mounjaro] 5 mg SQ TH 04/06/23 polyethylene glycoL 3350 [Miralax] 17 gm PO DAILY PRN 04/06/23 Rivaroxaban [Xarelto Starter Pack] 0 mg PO DIRECTED 30 Days #1 packet 04/07/23 Pregabalin [Lyrica] 50 mg PO TID 30 Days #90 cap 08/29/24 Controlled Substance Measures - Controlled Substance Measures Is patient prescribed a controlled substance at discharge?: Yes When asked, does pt state using other controlled substances?: No If prescribed controlled substance>3 days was MAPS reviewed?: Yes
== END ==
LOC: PNWHC3 13:44
PROVIDERS: ATTEND Specialist
DX: M54.81 Occipital neuralgia (principal); F17.210 Nicotine dependence, cigarettes, uncomplicated; Z88.0 Allergy status to penicillin; Z88.1 Allergy status to other antibiotic agents; Z88.2 Allergy status to sulfonamides
CPT/HCPCS: 99211

== ENCOUNTER 2024-09-14 07:37 | Day surgery (SDC) | payer BC ==
[2024-09-13 09:24] VITALS: BMI 40.7
[2024-09-14 08:03] VITALS: TEMP 97.8
[2024-09-14 08:09] LABS: Glucose,Whole Blood 104 mg/dL (70-110)
[2024-09-14] MEDS ORDERED: methylPREDNISolone ACETATE 40 MG/ML 1 ML VIAL ONE (09:22)
[2024-09-14] MEDS ORDERED: ROPIVACAINE 5MG/ML 20ML VIAL ONE (09:22)
--- NOTE | 2024-09-14 09:26 | P.PCN ---
Date of Procedure: 09/14/24 Procedure(s) Performed: Preoperative diagnoses= 1- Greater occipital neuralgia Postoperative diagnoses= same as preoperative diagnosis. Procedure= Bilateral Greater occipital nerve block Anesthesia= none Estimated blood loss=none Procedure indication= the patient had a history of severe chronic neck pain ,and headache, diagnosed with occipital neuralgia exam was positive for severe tenderness over the occipital nerve bilaterally, she will be a good candidate occipital nerve block, patient failed conservative management Procedure description= the patient was seen and identified in the preoperative holding area, risks and benefits and alternative of the procedure and possible complications discussed with the patient, and he agreed with the preceding, patient signed the consent, an IV was started, and vital signs were monitored and were stable throughout the procedure, patient was placed in the sitting position or table and the neck area was prepped and draped with a sterile fashion, vital signs were closely monitored during the procedure, 25-gauge needle advanced 1 inch lateral to the occipital protuberance on the right side, at the location of the right occipital nerve , then after negative aspiration for heme and CSF and there was no paresthesia during the injection, 6 ml of Robivacaine 0.5% and 20 mg of Depo-Medrol injected after negative aspiration, the needle removed, and the entire same procedure was repeated for the left Greater occipital nerve. Patient tolerated the procedure well without any complication, The patient returned to supine position after the back was cleaned and a Band- Aid applied, the patient transported to recovery room in stable condition and he was monitored for 30 minutes before he was discharged home and then patient was reexamined before going home and patient was discharged in stable condition and patient will follow up with the pain clinic in a few weeks.
[2024-09-14 10:00] VITALS: BP 137/86; PULSE 79; RESP 20
== END 2024-09-14 10:02 | disposition home or self-care (01) ==
LOC: ORPAIN 07:37
PROVIDERS: ATTEND Specialist
DX: M54.81 Occipital neuralgia (principal); Z88.2 Allergy status to sulfonamides; Z88.0 Allergy status to penicillin; Z88.1 Allergy status to other antibiotic agents
CPT/HCPCS: 64405; J2795; J1010

== ENCOUNTER → 2024-10-11 | Outpatient (CLI) | payer BC ==
[2024-10-11 14:16] VITALS: BP 123/85; PULSE 72; RESP 15; TEMP 97.6
--- NOTE | 2024-10-11 15:44 | P.PAINPG ---
PQRS Measure Charge Sheet Comment: A 54 yr old female with a history of severe and chronic neck pain secondary to occipital neuralgia, cervicogenic MEANS presents today for evaluation s/p BL RAJINDER #2. Pt states she experienced 85% pain relief x 4 wks s/p procedure. Pain level is provoked at 6 /10 in intensity, constant, localized in the L base of head, predominantly axial, stinging in character without radiation of pain. Pain is provoked by laying supine. Pain is alleviated with PT x 6 wks in Oct 2022, physician guided home exercise regimen every other day since Oct 2022, medications, topicals, injections in the past, ice, PT 8 weeks in 2021, use of TENS unit at home, repositioning and rest. She feels "hazy" on Lyrica and would like another regimen. Interventional pain procedures completed include L RFA C2-C4 x2 (Sep 2022, May 2024), L RAJINDER x1, BL RAJINDER x1 Patient is currently on Tramadol, Lyrica, Advil, Tyl, Voltaren Gel Patient denies any side effects of the medication(s), denies excessive drowsiness or sleepiness, denies suicidal ideation and reports that the current pain medication is helping to control the pain and improve activities of daily living. Patient denies any motor or sensory deficits. Patient denies any fever or night sweats, denies any change in the bowel movements or urination. Physical Examination: -Constitutional: Cooperative. Not in acute distress . - Neurologic: Cranial nerve II to XII intact. No focal neurological deficits. - Psychatric: Alert & oriented x 3. Matching mood & appropriate affect. Judg ment and insight intact. - Musculoskeletal: Cervical spine: +BL RAJINDER TTP Muscle bulk/ tone/ strength in the bilateral upper extremities normal Vertebral body tenderness to palpation Spurling test positive Distraction test positive Facet loading test positive L C2-C3, C3-C4 Thoracic spine Muscle bulk / tone/ strength in the bilateral paraspinal muscles normal Vertebral body tender to palpation over Facet loading test positive Lumbar spine: Motor bulk/ tone/ strength lower extremities , thigh and legs : 5/5 Deep tendon reflexes : Normal Knee Jerk. Normal Ankle Jerk . Vertebral body tenderness to palpation over Lumbar Facet Loading Test positive Straight Leg Raise: positive at 30 degrees right side/ left side Gaenslen's Test positive Sacral spine : Severe tenderness over the Sacroiliac joint: right side / left side Range of motion: Flexion of the lumbar spine <60 degrees Range of motion: Extension of the lumbar spine <20 degrees Gaenslen's Test positive Abrahan test: positive right side / left side Thigh Thrust Test Sacral Thrust Test Imaging: MRI Brain non contrast from 07/16/24 reviewed Assessment and plan: Chronic neck pain secondary to Occipital Neuralgia, Cervicogenic MEANS Recommendation of medication management. Opiate/ Narcotic agreement signed 07/05/24. Lyrica 50mg #90 w 1 RF. Use, side effects, adverse reactions, safe storage discussed. All patient questions answered I have spent less than 30 minutes on patient care today. Dr Moon was available by phone for the evaluation of this patient. The time was used to review the medical records including relevant urine studies and Prescription history (MAPs), review of the available imaging, evaluation and examination of the patient, coordination of care with the medical staff and if applicable referring physicians, as well as creation of the medical record PQRS Narrative: Smoking Status Current every day smoker Narcotic Agreement Date Signed 08/29/24 Hx Alcohol Use (MH) Yes: occ Home Medications: Ambulatory Orders Omeprazole 20 mg PO BID 07/11/17 SUMAtriptan succinate 100 mg PO DAILY PRN 09/01/19 Escitalopram Oxalate [Lexapro] 20 mg PO HS 12/20/19 ALPRAZolam [Xanax] 0.25 mg PO QAM PRN 01/12/21 Dextroamphetamine/Amphetamine [Adderall] 30 mg PO QAM 04/06/23 EPINEPHrine (Auto Inject) [Epipen] 0.3 mg IM ONCE PRN 04/06/23 Tirzepatide [Mounjaro] 5 mg SQ TH 04/06/23 Diclofenac Sodium Gel [Voltaren 1% Gel] 2 gm TOPICAL QID PRN 30 Days #1 each 09/04/24 Acetaminophen(Unknown Dose) 500 mg PO Q6H PRN 09/13/24 Multivitamin(Unknown Dose) 1 dose PO QAM 09/13/24 Pregabalin [Lyrica] 100 mg PO HS 09/13/24 Rivaroxaban [Xarelto Starter Pack] 20 mg PO HS 09/13/24 Pregabalin [Lyrica] 50 mg PO TID 30 Days #90 cap 10/11/24 Controlled Substance Measures - Controlled Substance Measures Is patient prescribed a controlled substance at discharge?: Yes When asked, does pt state using other controlled substances?: No If prescribed controlled substance>3 days was MAPS reviewed?: Yes
== END ==
LOC: PNWHC3 13:17
PROVIDERS: ATTEND Specialist
DX: M54.81 Occipital neuralgia (principal); G44.86 Cervicogenic headache; F17.210 Nicotine dependence, cigarettes, uncomplicated; Z88.0 Allergy status to penicillin; Z88.2 Allergy status to sulfonamides; Z88.6 Allergy status to analgesic agent
CPT/HCPCS: 99212

== ENCOUNTER → 2025-02-26 | Outpatient (CLI) | payer BC ==
--- NOTE | 2025-02-26 16:08 | XR ---
EXAMINATION TYPE: XR ankle complete LT DATE OF EXAM: 02/26/2025 COMPARISON: NONE HISTORY: Pain, fall. TECHNIQUE: 3 views of the left ankle are submitted for evaluation. FINDINGS: There is no evidence for fracture or dislocation. Ankle mortise is intact. Diffuse subcutan eous edema of the ankle. Small to moderate-sized posterior and plantar calcaneal enthesophytes. IMPRESSION: 1. No evidence for acute fracture. 2. Diffuse subcutaneous edema of the ankle. [facility], , 02/26/2025 4:05 PM
== END | disposition home or self-care (01) ==
LOC: RADXRMAIN 15:42
PROVIDERS: ATTEND Internal Medicine
DX: M25.572 Pain in left ankle and joints of left foot (principal); R60.0 Localized edema

== ENCOUNTER → 2025-04-01 | Outpatient (CLI) | payer BC ==
--- NOTE | 2025-04-02 08:15 | MM ---
Reason for Exam: Screening (asymptomatic). Last mammogram was performed 4 year(s) and 1 month(s) ago. Patient History: Menarche at age 14. Patient has no children. Postmenopausal. Hormonal Contraceptives for 17 years, 6 months. Risk Values: Janessa 5 year model risk: 1.2%. NCI Lifetime model risk: 9.4%. Prior Study Comparison: 12/12/2007 Bilateral Screening Mammogram, MERGED WITH [facility]. 06/02/2012 Bilateral Screening Mammogram, MERGED WITH [facility]. 03/13/2021 Bilateral Screening Mammogram, MERGED WITH [facility]. Tissue Density: The breasts are heterogeneously dense, which may obscure small masses. Findings: Analyzed By CAD. There is no suspicious group of microcalcifications or new suspicious mass in either breast. Overall Assessment: Negative, BI-RAD 1 Management: Screening Mammogram of both breasts in 1 year. . Patient should continue monthly self-breast exams. A clinical breast exam by your physician is recommended on an annual basis. This exam should not preclude additional follow-up of suspicious palpable abnormalities. Note on Janessa scores and lifetime risk: 1. A Janessa score greater than 3% is considered moderate risk. If this is the case, consider specialist referral to assess eligibility for a risk reducing agent. 2. If overall lifetime risk for the development of breast cancer is 20% or higher, the patient may qualify for future screening with alternating mammogram and breast MRI. [facility], , 04/02/2025 8:12 AM. Electronically signed and approved by: Johnny East M.D. [facility]
== END | disposition home or self-care (01) ==
LOC: RADMAMWWP 16:27
PROVIDERS: ATTEND Internal Medicine
DX: Z12.31 Encounter for screening mammogram for malignant neoplasm of breast (principal); R92.333 Mammographic heterogeneous density, bilateral breasts; Z78.0 Asymptomatic menopausal state; Z92.0 Personal history of contraception
CPT/HCPCS: 77067